=== PATIENT | male | born 1965 | race American Indian/Alaskan Native ===

== ENCOUNTER 2020-12-09 13:45 | Inpatient (IN) ==
[2020-12-09 14:33] LABS: Basophils # (Auto) 0.04 K/mcL (0.00-0.20); Basophils % (Auto) 0.4 % (0.0-2.0); Eosinophils # (Auto) 0.19 K/mcL (0.00-0.70); Eosinophils % (Auto) 1.7 % (0.0-7.0); Hemoglobin 10.3 g/dL (13.5-16.5); Lymphocytes # (Auto) 0.89 K/mcL (1.50-4.80); Lymphocytes % (Auto) 8.1 % (15.0-49.0); Mean Cell Volume 92.2 fL (80.0-100.0); Mean Corpuscular HGB Conc 32.2 g/dL (31.0-36.0); Monocytes # (Auto) 1.15 K/mcL (0.10-0.90); Monocytes % (Auto) 10.4 % (1.0-12.0); Neutrophils % (Auto) 79.4 % (38.0-78.0); Platelet Count 454 K/mcL (140-440); RBC 3.47 M/mcL (4.50-5.90); Red Cell Distribution Width 14.5 % (11.5-14.5)
[2020-12-09 14:42] LABS: POC INR 1.3 (0.8-1.2); POC Pro Time 14.9 sec (11.9-14.5)
[2020-12-09 14:53] LABS: ALT/SGPT 10 U/L (<40); AST/SGOT 17 U/L (<40); Albumin 3.3 gm/dL (3.2-5.2); Albumin/Globulin Ratio 0.9 (1.0-2.3); Alkaline Phosphatase 120 U/L (39-117); Bilirubin,Total 0.4 mg/dL (0.1-1.0); Blood Urea Nitrogen 41 mg/dL (6-20); Calcium 10.5 mg/dL (8.6-10.4); Carbon Dioxide 27 mmol/L (22-30); Chloride 88 mmol/L (96-108); Globulin 3.7 gm/dL (2.2-3.7); Glomerular Filtration Rate 15; Glucose 101 mg/dL (70-105)
--- NOTE | 2020-12-09 15:10 | Cat Scan Report ---
History: Diabetic with foot wound, dark necrotic fourth and fifth toes TECHNIQUE: The patient was imaged without contrast in axial plane from the mid tibia and fibula to the bottom of the foot at 2.5 mm intervals. Sagittal and coronal reformats were created. Radiation exposure was limited using dose reduction technology. FINDINGS: Severe atherosclerotic disease is present with densely calcified plaques in the posterior tibial, anterior tibial and peroneal arteries. The calcifications extend to the distal foot. These may be creating hemodynamically significant stenoses. There is a collection of multiple small bubbles of air in the deep subcutaneous tissues along the medial side of the ankle. Many of them lie lateral to the posterior tibial and flexor digitorum longus tendon. There is a band of thickened and inflamed tissues around the bubbles of air but no abscess collection is present. This extends superior to the ankle a distance of approximately 7 cm. The adjacent tibia is normal without evidence of osteomyelitis. There is a contour deformity due to an old healed fracture in the distal shaft of the tibia. There is mature callus. Is also a small osteochondral defect along the medial weightbearing portion of the dome of the talus. This is probably from an old injury. The bone fragment measures 2 x 4 mm. Ankle joint space is normal in width and there is no significant spur formation. No joint effusion or septic joint is seen. There is moderate osteoarthritis between the medial cuneiform and the adjacent base of the first metatarsal. The metatarsals and phalanges are normal without evidence of acute fracture and there is also no evidence of osteomyelitis in the foot. Another old fracture is present at the base of the fifth metatarsal. IMPRESSION: Gas in the subcutaneous tissues along the medial side of the ankle and medial to the distal tibia. This is most likely an infection. No evidence of osteomyelitis Dr. Reynoso was called with the results Interpreted and Authenticated by: Shelton Shah 12/09/20
--- NOTE | 2020-12-09 15:13 | XRay Report ---
HISTORY: Fever, chills, diabetes and right foot wound FINDINGS: Heart is moderately enlarged and has increased in size since 08/18/20. There is a generalized haziness in lung parenchyma bilaterally with the greatest involvement around the right lower hilum. This could be due to congestive heart failure or inflammation. There is no lobar consolidation or pleural effusion. Alveolar opacities were present in both lungs and 08/18/20 but they have since become worse. IMPRESSION: Worsening cardiomegaly with congestive heart failure, pneumonia or combination of the two. Interpreted and Authenticated by: Shelton Shah 12/09/20
--- NOTE | 2020-12-09 15:15 | Emergency Department Note ---
Extremity Problem HPI General Chief complaint: Extremity Problem,Nontraumatic Stated complaint: wound on right foot Time Seen by Provider: 12/09/20 13:53 Source: patient Mode of arrival: ambulatory Limitations: no limitations History of Present Illness HPI Narrative: Narrative: I spoke with Dr. Jay, who is asking for patient to be admitted and shows me pictures with severe plaque and scabs/ulcers changes to the medial ankle, medial distal leg, and medial foot as well as severely darkened inferior one half of the left fourth and fifth toes. Patient has a history of stents to his legs by Dr. Landry several years ago. He has a history of diabetic foot ulcer on the right that took 6 months to heal[address] Per Dr[address] Jay he is needing current labs imaging, antibiotics and admission for debridement and treatment. Patient's dialysis is scheduled for tomorrow, gets it MWF. Has had chills today. No sweatiness. He has lost weight from 280 pounds down to about 250 pounds (132 kg down to 115 this has been purposeful. Related Data Home Medications Medication Instructions Recorded Confirmed aspirin 81 mg tablet,delayed 81 mg PO QDAY 09/06/18 04/29/20 release dextran 70-hypromellose 1 each OP QIDP PRN 11/02/19 04/29/20 silver sulfadiazine 1 appful TOPICAL PRN PRN 11/02/19 04/29/20 insulin detemir U-100 40 unit SQ BID 11/06/19 04/29/20 acetaminophen 325 mg tablet 650 mg PO PRN PRN 06/18/20 amino ac-protein hydr-whey pro 10 each PO 3XW ml 06/18/20 gram-100 kcal/30 mL oral liquid arginine 7 gram-glutamine 7 each PO QDAY each 06/18/20 gram-calcium HMB 1.5 gram oral powder pack calcitriol 0.25 mcg capsule 0.25 mcg PO 3XW 06/18/20 clonidine HCl 0.1 mg tablet 0.1 mg PO ONCE PRN tab 06/18/20 etelcalcetide 5 mg/mL intravenous 10 mg IV 3XW 06/18/20 solution heparin (porcine) 1,000 unit/mL 1,500 unit IV ml 06/18/20 injection solution heparin (porcine) 1,000 unit/mL 2,000 unit IV ml 06/18/20 injection solution heparin (porcine) 1,000 unit/mL 4,000 unit IV ml 06/18/20 injection solution hydroxyzine HCl 10 mg tablet 10 mg PO ONCE PRN tab 06/18/20 insulin aspart U-100 100 unit/mL 12 unit SUB-Q .BID ac ml 06/18/20 subcutaneous solution loperamide 2 mg capsule 4 mg PO ONCE PRN cap 06/18/20 ondansetron HCl 2 mg/mL 4 mg IM ONCE PRN ml 06/18/20 intravenous solution sodium ferric gluconat-sucrose 62.5 mg IV QWEEK ml 06/18/20 62.5 mg/5 mL intravenous Previous Rx's Medication Instructions Recorded clopidogrel 75 mg tablet 75 mg PO QDAY #30 tab 12/11/18 B complex-vitamin C-folic acid 100 1 tab PO QDAY #30 tab 03/28/19 mg-folic acid 1 mg tablet glipizide 5 mg tablet, extended 5 mg PO QDAY #30 tab 12/21/19 release 24 hr arginine 7 gram-glutamine 7 See Rx Instructions PO .COMPLEX 04/16/20 gram-calcium HMB 1.5 gram oral #30 each powder pack clonidine 0.2 mg/24 hr weekly 1 patch TRANSDERMA QWEEK #4 each 06/04/20 transdermal patch calcium acetate(phosphat bind) 667 2,001 mg PO .TID pc #270 cap 06/18/20 mg capsule lisinopril 40 mg tablet 40 mg PO BID #60 tab 06/18/20 doxazosin 2 mg tablet 4 mg PO QHS #60 tab 07/10/20 sevelamer HCl 800 mg tablet 2,400 mg PO .tid ac #270 tab 07/10/20 rosuvastatin 5 mg tablet 5 mg PO QPM #30 tab 07/15/20 amlodipine 10 mg tablet 10 mg PO QDAY #30 tab 08/25/20 gabapentin 600 mg tablet 600 mg PO .COMPLEX #30 tab 11/07/20 amitriptyline 25 mg tablet 25 mg PO QHS #30 tab 11/11/20 Allergies Allergy/AdvReac Type Severity Reaction Status Date / Time cephalexin Allergy Mild rash Verified 12/09/20 13:50 Review of Systems ROS ROS Narrative: Narrative: Has some cough that he relates to his denture cream oozing out and draining. Has some constipation off and on Does not produce any urine Feels some generalized weakness lethargy and low energy. 12 Systems Reviewed - negative except as mentioned above. [facility] Narrative Patient History Narrative: Narrative: Medical/Surgical/Family History All Active Problems (Updated 12/09/20 @ 16:02 by Jah Reynoso DO) Diabetic foot ulcer (Acute) Chronic kidney disease, stage V requiring chronic dialysis (Acute) Necrotizing soft tissue infection (Acute) Necrotic toes (Acute) Depressed (Acute) SOB (shortness of breath) (Acute) Accelerated essential hypertension (Acute) Neuropathy associated with endocrine disorder (Acute) Diabetes mellitus with ESRD (end-stage renal disease) (Acute) Proliferative diabetic retinopathy (Chronic) Degenerative joint disease (Chronic) Periodontal disease (Chronic) Hypercholesterolemia (Chronic) Arthritis (Chronic) Anemia (Chronic) Non healing left heel wound (Chronic) Hyponatremia (Chronic) Sepsis (Acute) Hypertension (Acute) Peripheral arterial disease (Chronic) nursing home (current) use of anticoagulants (Chronic) Secondary diabetes mellitus with hypertension and end stage renal disease on dialysis (Chronic) Type 2 diabetes, uncontrolled, with neuropathy (Chronic) ESRD (end stage renal disease) on dialysis (Chronic) Hypertension (Chronic) Hyperlipidemia (Chronic) Obesity (BMI 30.0-34.9) (Chronic) Cellulitis of heel, left (Chronic) Diabetic foot ulcer (Chronic) Chronic renal failure, stage 5 (Chronic) Hyponatremia (Acute) Recurrent cellulitis of lower leg (Chronic) Vitamin D deficiency (Chronic) Obesity, morbid (more than 100 lbs over ideal weight or BMI > 40) (Chronic) Hyperparathyroidism, secondary (Chronic) Medical History (Updated 12/09/20 @ 16:02 by Jah Reynoso DO) Abscess of skin or subcutaneous tissue (Resolved) Anemia (Chronic) Arthritis (Chronic) Cellulitis of heel, left (Chronic) Ugent need of incision and drainage left heel Chronic renal failure, stage 5 (Chronic) Degenerative joint disease (Chronic) Diabetic foot ulcer (Chronic) treated with surgery, abx, hbo and skin graft ESRD (end stage renal disease) on dialysis (Chronic) History of folliculitis (Chronic) associated inguinal infection requiring incision and drainage Hypercholesterolemia (Chronic) Hyperglycemia (Resolved) Hyperkalemia (Resolved) Hyperlipidemia (Chronic) Hyperparathyroidism, secondary (Chronic) Hypertension (Chronic) 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 Landry) Non healing left heel wound (Chronic) Obesity (BMI 30.0-34.9) (Chronic) Obesity, morbid (more than 100 lbs over ideal weight or BMI > 40) (Chronic) Periodontal disease (Chronic) Full dental extraction Peripheral arterial disease (Chronic) Status post stenting, Dr. Landry. Proliferative diabetic retinopathy (Chronic) Recurrent cellulitis of lower leg (Chronic) Secondary diabetes mellitus with hypertension and end stage renal disease on dialysis (Chronic) Type 2 diabetes, uncontrolled, with neuropathy (Chronic) Well controlled when hospitalized. Left to his own devices, to much CHO intake and poor control Vitamin D deficiency (Chronic) Surgical History (Updated 12/09/20 @ 15:10 by Jah Reynoso DO) History of cataract removal with insertion of prosthetic lens (Chronic) History of surgery (Chronic) Left radiocephalic AV fistula, with subsequent thrombosis. History of surgery (Chronic) Left brachiocephalic AV fistula History of tonsillectomy and adenoidectomy (Chronic) as a child S/P peripheral artery angioplasty with stent placement (Acute) Dr. Landry Family History father Malignant neoplasm of liver father Diabetes mellitus with coincident hypertension father Obesity Unknown Social History Smoking Status: Never smoker Alcohol Intake Frequency: does not drink Substance Use: does not use Exam Narrative Narrative: Narrative: General Limitations: no limitations General appearance: Present alert, in no apparent distress and nontoxic Head Head: Present atraumatic and normocephalic Eye Eye: Present normal appearance, PERRL and EOMI ENT ENT: Present mucous membranes moist; Absent nasal tones Neck Neck: Present trachea midline; Absent lymphadenopathy and thyromegaly Chest Chest: Present symmetric chest wall rise Respiratory Respiratory: Present normal lung sounds bilaterally; Absent respiratory distress, rales/crackles, wheezes, stridor, accessory muscle use and prolonged expiratory phase Cardiovascular Cardiovascular: Present regular rate, normal rhythm and systolic murmur (fairly loud newman systolic throughout precordium, crescendo.); Absent diastolic murmur Adbominal Abdominal: Present soft; Absent distention, tenderness, guarding, rebound, rigidity, organomegaly and mass Extremities Extremities: Present other (Very dark irregular as shard that extends quite frequently to the very distal medial lower extremity and medial ankle and proximal medial foot. The fourth and fifth toes are one half, the lower one half, dark and necrotic in appearance with the same color.); Absent pedal edema, pretibial edema, calf tenderness and cyanosis Expanded Lower Extremity Foot/toe: Present other (Dorsalis pedal pulse on the right 0/4, on the left 2/4. Unable to palpate for a posterior tibial on the right due to the severe eschar overlying this area on the right.) Back Back: Absent CVA tenderness (R), CVA tenderness (L) and spinous process tenderness Neurological Neurological: Present alert and oriented X3 Psychiatric Psychiatric: Present normal affect, polite and pleasant; Absent depressed, agitated, anxious and poor eye contact Skin Skin: Present warm (WNL) and dry; Absent cyanosis and pallor Course Vital Signs Vital signs: Vital Signs Temperature 99.3 F H 12/09/20 13:47 Pulse Rate 100 H 12/09/20 13:47 Respiratory Rate 18 12/09/20 13:47 Blood Pressure 163/93 12/09/20 13:47 Pulse Oximetry (%) 99 12/09/20 13:47 Temperature 99.3 F H 12/09/20 13:47 Pulse Rate 102 H 12/09/20 14:39 Respiratory Rate 18 12/09/20 13:47 Blood Pressure 152/89 12/09/20 14:39 Pulse Oximetry (%) 97 12/09/20 14:39 [facility] Narrative Medical decision making narrative: Narrative: Patient is not toxic or septic in appearance or per vitals. He is a little bit tachycardic. He has some history of some chills and some low-grade fevers. We will do lab work-up and CT scan per her Dr. Jay's recommendations. EKG demonstrates sinus tachycardia with probable left atrial enlargement, right bundle branch block and left anterior fascicular block. No ST segment variations or T wave concerns, T waves inferiorly oriented in 3 and aVF. Labs as below. No white count. Does have mildly worsened anemia presumably of chronic kidney disease. INR mildly elevated at 1.3. Sodium mildly low at 131 but he has had some hyponatremia Chronically in the past. BUN and creatinine are 41 and 4.1 which is actually quite well for him. Mildly elevated calcium at 10.5 Serum proteins are actually good. Lactic acid 1.4. 3:05 PM - telephone call from radiologist, Dr. Shah, who reports that it there are some small bubble gas in the deep subcutaneous tissues in the distal tibial region. It does not appear to be a septic joint or any osteomyelitis of the tibia, ankle, toes. There are no gas bubbles in the foot or toes. I spoke about above with Dr. Jay who indicates no new specific interven tion. He will obtain deep tissue culture when patient goes to surgical debridement. Vancomycin and Zosyn already ordered. 3:25 PM approximately - spoke with Dr. Joe, impregnator operator who will follow this patient from nephrology standpoint. 3:40 PM - spoke with hospitalist, Dr. José Yost, who will come and see this patient and admit him to the hospitalist service. Pharmacist will increase the dose to 1500 mg 1 time on the vancomycin. She agrees with initial Zosyn dose of Zosyn 2.25 and that it can be given every 8 hours. Lab Data Result diagrams: 12/09/20 14:08 12/09/20 14:08 Labs: Lab Results 12/09/20 12/09/20 12/09/20 Range/Units 14:08 14:08 14:30 WBC 11.0 (4.5-11.0) K/mcL RBC 3.47 L (4.50-5.90) M/mcL Hgb 10.3 L (13.5-16.5) g/dL Hct 32.0 L (41.0-55.0) % MCV 92.2 (80.0-100.0) fL MCH 29.7 (26.0-34.0) pg MCHC 32.2 (31.0-36.0) g/dL RDW 14.5 (11.5-14.5) % Plt Count 454 H (140-440) K/mcL MPV 9.0 (7.4-10.4) fL Neut % (Auto) 79.4 H (38.0-78.0) % Lymph % (Auto) 8.1 L (15.0-49.0) % Gila % (Auto) 10.4 (1.0-12.0) % Eos % (Auto) 1.7 (0.0-7.0) % Baso % (Auto) 0.4 (0.0-2.0) % Lymph # (Auto) 0.89 L (1.50-4.80) K/mcL Gila # (Auto) 1.15 H (0.10-0.90) K/mcL Eos # (Auto) 0.19 (0.00-0.70) K/mcL Baso # (Auto) 0.04 (0.00-0.20) K/mcL Absolute Neutrophils 8.77 H (1.80-8.00) K/mcL POC PT 14.9 H (11.9-14.5) sec POC INR 1.3 H (0.8-1.2) APTT (20.0-37.0) sec Sodium 131 L (133-145) mmol/L Potassium 5.0 (3.3-5.1) mmol/L Chloride 88 L (96-108) mmol/L Carbon Dioxide 27 (22-30) mmol/L Anion Gap 16.0 (8.0-16.0) BUN 41 H (6-20) mg/dL Creatinine 4.1 H (0.7-1.2) mg/dL GFR Calculation 15 Glucose 101 (70-105) mg/dL Calcium 10.5 H (8.6-10.4) mg/dL Total Bilirubin 0.4 (0.1-1.0) mg/dL AST 17 (<40) U/L ALT 10 (<40) U/L Alkaline Phosphatase 120 H (39-117) U/L Total Protein 7.0 (5.9-8.4) gm/dL Albumin 3.3 (3.2-5.2) gm/dL Globulin 3.7 (2.2-3.7) gm/dL Albumin/Globulin Ratio 0.9 L (1.0-2.3) 12/09/20 Range/Units 14:30 WBC (4.5-11.0) K/mcL RBC (4.50-5.90) M/mcL Hgb (13.5-16.5) g/dL Hct (41.0-55.0) % MCV (80.0-100.0) fL MCH (26.0-34.0) pg MCHC (31.0-36.0) g/dL RDW (11.5-14.5) % Plt Count (140-440) K/mcL MPV (7.4-10.4) fL Neut % (Auto) (38.0-78.0) % Lymph % (Auto) (15.0-49.0) % Gila % (Auto) (1.0-12.0) % Eos % (Auto) (0.0-7.0) % Baso % (Auto) (0.0-2.0) % Lymph # (Auto) (1.50-4.80) K/mcL Gila # (Auto) (0.10-0.90) K/mcL Eos # (Auto) (0.00-0.70) K/mcL Baso # (Auto) (0.00-0.20) K/mcL Absolute Neutrophils (1.80-8.00) K/mcL POC PT (11.9-14.5) sec POC INR (0.8-1.2) APTT 32.0 (20.0-37.0) sec Sodium (133-145) mmol/L Potassium (3.3-5.1) mmol/L Chloride (96-108) mmol/L Carbon Dioxide (22-30) mmol/L Anion Gap (8.0-16.0) BUN (6-20) mg/dL Creatinine (0.7-1.2) mg/dL GFR Calculation Glucose (70-105) mg/dL Calcium (8.6-10.4) mg/dL Total Bilirubin (0.1-1.0) mg/dL AST (<40) U/L ALT (<40) U/L Alkaline Phosphatase (39-117) U/L Total Protein (5.9-8.4) gm/dL Albumin (3.2-5.2) gm/dL Globulin (2.2-3.7) gm/dL Albumin/Globulin Ratio (1.0-2.3) Discharge Plan Patient/Caregiver Discharge Instructions Pt seen by FARM ADVISOR/PA only: No Clinical Impression: Diabetic foot ulcer, Chronic kidney disease, stage V requiring chronic dialysis, Necrotizing soft tissue infection, Necrotic toes Patient Disposition: Xfer As Inpt ([facility]) Follow up with: Violet Silva MD [Primary Care Provider] - Prescriptions: No Action aspirin 81 mg tablet,delayed release (DR/EC) 81 mg PO QDAY RF: 0 clopidogrel [Plavix] 75 mg tablet 75 mg PO QDAY Qty: 30 RF: 6 Dialyvite 100-1 mg tablet 1 tab PO QDAY Qty: 30 RF: 6 glipizide 5 mg tablet extended release 24hr 5 mg PO QDAY Qty: 30 RF: 11 arginine 7 gram-glutamine 7 gram-calcium HMB 1.5 gram oral powder pack 7-7-1.5 gram powder in packet See Rx Instructions PO .COMPLEX Qty: 30 RF: 3 clonidine 0.2 mg/24 hr patch weekly 1 patch TRANSDERMA QWEEK Qty: 4 RF: 11 acetaminophen 325 mg tablet 650 mg PO PRN PRN (Reason: pain ) RF: 0 calcitriol 0.25 mcg capsule 0.25 mcg PO 3XW RF: 0 clonidine HCl 0.1 mg tablet 0.1 mg PO ONCE PRNRF: 0 sodium ferric gluconat-sucrose [Ferrlecit] 62.5 mg/5 mL solution 62.5 mg IV QWEEK RF: 0 ondansetron HCl 2 mg/mL solution 4 mg IM ONCE PRNRF: 0 ProSource 10-100 gram-kcal/30 mL liquid PO 3XW RF: 0 calcium acetate(phosphat bind) 667 mg capsule 2,001 mg PO .TID pc Qty: 270 RF: 12 Parsabiv 5 mg/mL solution 10 mg IV 3XW RF: 0 insulin aspart U-100 100 unit/mL solution 12 unit SUB-Q .BID ac RF: 0 heparin (porcine) 1,000 unit/mL solution 2,000 unit IV RF: 0 heparin (porcine) 1,000 unit/mL solution 4,000 unit IV RF: 0 heparin (porcine) 1,000 unit/mL solution 1,500 unit IV RF: 0 hydroxyzine HCl 10 mg tablet 10 mg PO ONCE PRNRF: 0 loperamide [Imodium A-D] 2 mg capsule 4 mg PO ONCE PRNRF: 0 Buddy 7-7-1.5 gram powder in packet PO QDAY RF: 0 lisinopril 40 mg tablet 40 mg PO BID Qty: 60 RF: 11 doxazosin 2 mg tablet 4 mg PO QHS Qty: 60 RF: 11 sevelamer HCl 800 mg tablet 2,400 mg PO .tid ac Qty: 270 RF: 12 rosuvastatin 5 mg tablet 5 mg PO QPM Qty: 30 RF: 11 amlodipine 10 mg tablet 10 mg PO QDAY Qty: 30 RF: 11 gabapentin 600 mg tablet 600 mg PO .COMPLEX Qty: 30 RF: 11 amitriptyline 25 mg tablet 25 mg PO QHS Qty: 30 RF: 11 silver sulfadiazine 1 cream 1 appful topical PRN PRN (Reason: Dry Skin) RF: 0 dextran 70-hypromellose 1 EACH dropperette 1 each OP QIDP PRN (Reason: Dry Eyes) RF: 0 insulin detemir U-100 100 UNIT/ML insulin pen 40 unit SQ BID RF: 0
[2020-12-09] MEDS ORDERED: PIPERACILLIN SODIUM/TAZOBACTAM 2.25 GM in DEXTROSE 5% IN WATER 50 ML IV ONE (15:17)
[2020-12-09] MEDS ORDERED: VANCOMYCIN 1,000 MG in 0.9 % SODIUM CHLORIDE 250 ML IV ONE (15:17)
--- NOTE | 2020-12-09 15:52 | Internal Med History&Physical ---
HPI History of Present Illness Patient information: Note initiated : 12/09/20 at 3:42 pm Service Date, if different from initiated Date: [] Patient: Robert Montes a 55 y/o M admitted on for wound on right foot. Chief Complaint: [] History of present illness: Mr. Montes is a 55 year old M Presents to the ED sent in by Dr. Jay at the wound care clinic for a right foot nonhealing wound that appears to be infected at this point and likely n eeds surgical debridement per Dr. Dominguez. Patient reports increased redness and also drainage which she describes as brown. Denies fevers but positive for chills. Review of Systems: Positives as above. Denies headache/fever/nausea/vomiting/chest or abdominal pain/cough/dyspnea/diarrhea. Many 10 point review of system reviewed negative. PFSH PFSH All Active Problems (Updated 12/09/20 @ 16:02 by Jah Reynoso DO) Diabetic foot ulcer (Acute) Chronic kidney disease, stage V requiring chronic dialysis (Acute) Necrotizing soft tissue infection (Acute) Necrotic toes (Acute) Depressed (Acute) SOB (shortness of breath) (Acute) Accelerated essential hypertension (Acute) Neuropathy associated with endocrine disorder (Acute) Diabetes mellitus with ESRD (end-stage renal disease) (Acute) Proliferative diabetic retinopathy (Chronic) Degenerative joint disease (Chronic) Periodontal disease (Chronic) Hypercholesterolemia (Chronic) Arthritis (Chronic) Anemia (Chronic) Non healing left heel wound (Chronic) Hyponatremia (Chronic) Sepsis (Acute) Hypertension (Acute) Peripheral arterial disease (Chronic) [facility] (current) use of anticoagulants (Chronic) Secondary diabetes mellitus with hypertension and end stage renal disease on dialysis (Chronic) Type 2 diabetes, uncontrolled, with neuropathy (Chronic) ESRD (end stage renal disease) on dialysis (Chronic) Hypertension (Chronic) Hyperlipidemia (Chronic) Obesity (BMI 30.0-34.9) (Chronic) Cellulitis of heel, left (Chronic) Diabetic foot ulcer (Chronic) Chronic renal failure, stage 5 (Chronic) Hyponatremia (Acute) Recurrent cellulitis of lower leg (Chronic) Vitamin D deficiency (Chronic) Obesity, morbid (more than 100 lbs over ideal weight or BMI > 40) (Chronic) Hyperparathyroidism, secondary (Chronic) Medical History (Updated 12/09/20 @ 16:02 by Jah Reynoso DO) Abscess of skin or subcutaneous tissue (Resolved) Anemia (Chronic) Arthritis (Chronic) Cellulitis of heel, left (Chronic) Ugent need of incision and drainage left heel Chronic renal failure, stage 5 (Chronic) Degenerative joint disease (Chronic) Diabetic foot ulcer (Chronic) treated with surgery, abx, hbo and skin graft ESRD (end stage renal disease) on dialysis (Chronic) History of folliculitis (Chronic) associated inguinal infection requiring incision and drainage Hypercholesterolemia (Chronic) Hyperglycemia (Resolved) Hyperkalemia (Resolved) Hyperlipidemia (Chronic) Hyperparathyroidism, secondary (Chronic) Hypertension (Chronic) Controlled with captopril and clonidine TTS [employer] (current) use of anticoagulants (Chronic) Clopidogrel (status post stenting lower extremities; Dr. Landry) Non healing left heel wound (Chronic) Obesity (BMI 30.0-34.9) (Chronic) Obesity, morbid (more than 100 lbs over ideal weight or BMI > 40) (Chronic) Periodontal disease (Chronic) Full dental extraction Peripheral arterial disease (Chronic) Status post stenting, Dr. Landry. Proliferative diabetic retinopathy (Chronic) Recurrent cellulitis of lower leg (Chronic) Secondary diabetes mellitus with hypertension and end stage renal disease on dialysis (Chronic) Type 2 diabetes, uncontrolled, with neuropathy (Chronic) Well controlled when hospitalized. Left to his own devices, to much CHO intake and poor control Vitamin D deficiency (Chronic) Surgical History (Updated 12/09/20 @ 15:10 by Jah Reynoso DO) History of cataract removal with insertion of prosthetic lens (Chronic) History of surgery (Chronic) Left radiocephalic AV fistula, with subsequent thrombosis. History of surgery (Chronic) Left brachiocephalic AV fistula History of tonsillectomy and adenoidectomy (Chronic) as a child S/P peripheral artery angioplasty with stent placement (Acute) Dr. Landry Family History father Malignant neoplasm of liver Diabetes mellitus with coincident hypertension Unknown Obesity Social History (Updated 04/30/20 @ 20:49 by Luis M Curry MD) marital status: single occupational status: disabled smoking status: Never smoker alcohol intake frequency: does not drink substance use type: does not use MEDS/ALLERGIES Home Medications and Allergies Home Medications Medication Instructions Recorded Confirmed Type aspirin 81 mg tablet,delayed 81 mg PO QDAY 09/06/18 04/29/20 History release clopidogrel 75 mg tablet 75 mg PO QDAY #30 tab 12/11/18 04/29/20 Rx B complex-vitamin C-folic acid 100 1 tab PO QDAY #30 tab 03/28/19 04/29/20 Rx mg-folic acid 1 mg tablet dextran 70-hypromellose 1 each OP QIDP PRN 11/02/19 04/29/20 History silver sulfadiazine 1 appful TOPICAL PRN PRN 11/02/19 04/29/20 History insulin detemir U-100 40 unit SQ BID 11/06/19 04/29/20 History glipizide 5 mg tablet, extended 5 mg PO QDAY #30 tab 12/21/19 04/29/20 Rx release 24 hr arginine 7 gram-glutamine 7 See Rx Instructions PO .COMPLEX 04/16/20 04/29/20 Rx gram-calcium HMB 1.5 gram oral #30 each powder pack clonidine 0.2 mg/24 hr weekly 1 patch TRANSDERMA QWEEK #4 each 06/04/20 Rx transdermal patch acetaminophen 325 mg tablet 650 mg PO PRN PRN 06/18/20 History amino ac-protein hydr-whey pro 10 each PO 3XW ml 06/18/20 History gram-100 kcal/30 mL oral liquid arginine 7 gram-glutamine 7 each PO QDAY each 06/18/20 History gram-calcium HMB 1.5 gram oral powder pack calcitriol 0.25 mcg capsule 0.25 mcg PO 3XW 06/18/20 History calcium acetate(phosphat bind) 667 2,001 mg PO .TID pc #270 cap 06/18/20 Rx mg capsule clonidine HCl 0.1 mg tablet 0.1 mg PO ONCE PRN tab 06/18/20 History etelcalcetide 5 mg/mL intravenous 10 mg IV 3XW 06/18/20 History solution heparin (porcine) 1,000 unit/mL 1,500 unit IV ml 06/18/20 History injection solution heparin (porcine) 1,000 unit/mL 2,000 unit IV ml 06/18/20 History injection solution heparin (porcine) 1,000 unit/mL 4,000 unit IV ml 06/18/20 History injection solution hydroxyzine HCl 10 mg tablet 10 mg PO ONCE PRN tab 06/18/20 History insulin aspart U-100 100 unit/mL 12 unit SUB-Q .BID ac ml 06/18/20 History subcutaneous solution lisinopril 40 mg tablet 40 mg PO BID #60 tab 06/18/20 Rx loperamide 2 mg capsule 4 mg PO ONCE PRN cap 06/18/20 History ondansetron HCl 2 mg/mL 4 mg IM ONCE PRN ml 06/18/20 History intravenous solution sodium ferric gluconat-sucrose 62.5 mg IV QWEEK ml 06/18/20 History 62.5 mg/5 mL intravenous doxazosin 2 mg tablet 4 mg PO QHS #60 tab 07/10/20 Rx sevelamer HCl 800 mg tablet 2,400 mg PO .tid ac #270 tab 07/10/20 Rx rosuvastatin 5 mg tablet 5 mg PO QPM #30 tab 07/15/20 Rx amlodipine 10 mg tablet 10 mg PO QDAY #30 tab 08/25/20 Rx gabapentin 600 mg tablet 600 mg PO .COMPLEX #30 tab 11/07/20 Rx amitriptyline 25 mg tablet 25 mg PO QHS #30 tab 11/11/20 Rx Allergies Allergy/AdvReac Type Severity Reaction Status Date / Time cephalexin Allergy Mild rash Verified 12/09/20 13:50 EXAM Constitutional Vitals: Temp Pulse Resp BP Pulse Ox 99.3 F H 102 H 18 152/89 97 12/09/20 13:47 12/09/20 14:39 12/09/20 13:47 12/09/20 14:39 12/09/20 14:39 Exam: General: Alert, Awake, No acute Distress Eyes/N/T: EOMI, PERRL, MM Head/Neck: neck supple, normocephalic atraumatic CV: RRR, No murmurs, normal s1/s2 Pulm: Clear b/l, no wheezing/rhonchi/rales Abd: soft, nontender, +BS x4 Ext: no clubbing/cyanosis/edema to RLE. Left with large eschar left foot dorsal medial aspect with the area of fluctuance. Neuro: Alert, no focal deficits, moves all extremities, CN 2-12 grossly intact, symmetrical strength b/l upper/lower, decreased sensations b/l LE chronic Skin: warm/dry DATA Data Completed and Pending Labs: Labs from last 24 hours 12/09/20 12/09/20 12/09/20 14:30 14:30 14:08 WBC RBC Hgb Hct MCV MCH MCHC RDW Plt Count MPV Neut % (Auto) Lymph % (Auto) [place] % (Auto) Eos % (Auto) Baso % (Auto) Lymph # (Auto) [place] # (Auto) Eos # (Auto) Baso # (Auto) Absolute Neutrophils POC PT 14.9 H POC INR 1.3 H APTT 32.0 Sodium 131 L Potassium 5.0 Chloride 88 L Carbon Dioxide 27 Anion Gap 16.0 BUN 41 H Creatinine 4.1 H GFR Calculation 15 Glucose 101 Calcium 10.5 H Total Bilirubin 0.4 AST 17 ALT 10 Alkaline Phosphatase 120 H Total Protein 7.0 Albumin 3.3 Globulin 3.7 Albumin/Globulin Ratio 0.9 L 12/09/20 14:08 WBC 11.0 RBC 3.47 L Hgb 10.3 L Hct 32.0 L MCV 92.2 MCH 29.7 MCHC 32.2 RDW 14.5 Plt Count 454 H MPV 9.0 Neut % (Auto) 79.4 H Lymph % (Auto) 8.1 L [place] % (Auto) 10.4 Eos % (Auto) 1.7 Baso % (Auto) 0.4 Lymph # (Auto) 0.89 L [place] # (Auto) 1.15 H Eos # (Auto) 0.19 Baso # (Auto) 0.04 Absolute Neutrophils 8.77 H POC PT POC INR APTT Sodium Potassium Chloride Carbon Dioxide Anion Gap BUN Creatinine GFR Calculation Glucose Calcium Total Bilirubin AST ALT Alkaline Phosphatase Total Protein Albumin Globulin Albumin/Globulin Ratio A/P Narrative A/P Narrative: A: *Left foot non-healing diabetic wound infection w/subcutaneous necrosis: *DM w/neuropathy: *ESRD: Follows with Dr. Joe *PVD: on ASA/Plavix/statin *Anemia, chronic *HTN/HLD: * P: -Broad antibiotics with Vanc/Zosyn, Clinda(for first 48rs) - deescalate per cx's and ID orders -pending BC/WC/mrsa pcr -Dr. Jay for I&D -Dr. White consulted -HD per nephrology -Continue home Norvasc/clonidine/lisinopril -Continue ASA/Plavix/statin -Basal and SSI -PT/OT -ppx: Heparin full Code Time Spent With Patient Time: Total time spent is greater than 50% in coordination of care (as document ed) at patient's floor/unit and/or counseling patient:
[2020-12-09] MEDS ORDERED: VANCOMYCIN 1,500 MG in 0.9 % SODIUM CHLORIDE 500 ML IV ONE (16:00)
[2020-12-09] MEDS ORDERED: POTASSIUM CHLORIDE 20 MEQ TABLET PO PRN ×2 (16:42)
[2020-12-09] MEDS ORDERED: MAGNESIUM SULFATE 2 GM/50 ML BAG IV PRN (16:42)
[2020-12-09] MEDS ORDERED: DEXTROSE 31 GM ORAL.SUSP PO PRN (16:42)
[2020-12-09] MEDS ORDERED: POTASSIUM CHLORIDE 40 MEQ in DEXTROSE 5% IN WATER 500 ML IV PRN (16:42)
[2020-12-09] MEDS ORDERED: IPRATROPIUM/ALBUTEROL 3 ML AMPUL.NEB NEB PRN (16:42)
[2020-12-09] MEDS ORDERED: ONDANSETRON 4 MG/2 ML VIAL IV PRN (16:42)
[2020-12-09] MEDS ORDERED: PIPERACILLIN SODIUM/TAZOBACTAM 3.375 GM in DEXTROSE 5% IN WATER 50 ML IV SCH (16:42)
[2020-12-09] MEDS ORDERED: POLYETHYLENE GLYCOL 3350 17 GM PACKET PO PRN (16:42)
[2020-12-09] MEDS ORDERED: VANCOMYCIN PER PHARMACY IV SCH (16:42)
[2020-12-09] MEDS ORDERED: SENNOSIDES 1 TABLET PO PRN (16:42)
[2020-12-09] MEDS ORDERED: LACTULOSE 20 GM/30 ML ORAL.SOL PO PRN (16:42)
--- NOTE | 2020-12-09 17:02 | Nephrology Consult Note ---
HPI Data of Consult Primary Care Provider: Violet Silva Consult Narrative Patient Information: Note initiated : 12/09/20 at 4:53 pm Patient: Robert Montes 55 y/o M admitted on 12/09/20 for wound on right foot. Chief Complaint: Right foot wound Robert Montes is a 55-year-old male with end stage renal disease on chronic h emodialysis, hypertension, hyperlipidemia and diabetes mellitus type 2 referred to the emergency room from the wound care clinic for the right foot wound on 12/09/20 and admitted. The wound appears to be infected and likely needs surgical debridement. Chief complaint: Right foot wound Reason for consult: End stage renal disease on chronic hemodialysis cc:: CC: José Yost Constitutional Constitutional: Present weakness; Absent fever(s) EENT Eyes: Absent blurry vision Nose, mouth and throat: Absent sore throat Cardiovascular Cardiovascular: Absent chest pain and palpatations Respiratory Respiratory: Absent dyspnea and wheezing Gastrointestinal Gastrointestinal: Absent abdominal pain, nausea and vomiting Integumentary Integumentary: Present wounds Neurological Neurological: Absent dizziness and focal weakness Psychiatric Psychiatric: Absent confusion and panic attacks Endocrine Endocrine: Absent cold intolerance and heat intolerance Hematologic/Lymphatic Hematologic/Lymphatic: Absent easy bleeding and easy bruising Allergic/Immunologic Allergic/Immunologic: Absent tongue swelling and uticaria PFSH PFSH All Active Problems (Updated 12/09/20 @ 17:01 by Janet Joe MD) Anemia due to end stage renal disease (Chronic) Diabetic foot ulcer (Acute) Chronic kidney disease, stage V requiring chronic dialysis (Acute) Necrotizing soft tissue infection (Acute) Necrotic toes (Acute) Depressed (Acute) SOB (shortness of breath) (Acute) Accelerated essential hypertension (Acute) Neuropathy associated with endocrine disorder (Acute) Diabetes mellitus with ESRD (end-stage renal disease) (Acute) Proliferative diabetic retinopathy (Chronic) Degenerative joint disease (Chronic) Periodontal disease (Chronic) Hypercholesterolemia (Chronic) Arthritis (Chronic) Anemia (Chronic) Non healing left heel wound (Chronic) Hyponatremia (Chronic) Sepsis (Acute) Hypertension (Acute) Peripheral arterial disease (Chronic) buttermaker (current) use of anticoagulants (Chronic) Secondary diabetes mellitus with hypertension and end stage renal disease on dialysis (Chronic) Type 2 diabetes, uncontrolled, with neuropathy (Chronic) ESRD (end stage renal disease) on dialysis (Chronic) Hypertension (Chronic) Hyperlipidemia (Chronic) Obesity (BMI 30.0-34.9) (Chronic) Cellulitis of heel, left (Chronic) Diabetic foot ulcer (Chronic) Chronic renal failure, stage 5 (Chronic) Hyponatremia (Chronic) Recurrent cellulitis of lower leg (Chronic) Vitamin D deficiency (Chronic) Obesity, morbid (more than 100 lbs over ideal weight or BMI > 40) (Chronic) Hyperparathyroidism, secondary (Chronic) Medical History (Updated 12/09/20 @ 17:01 by Janet Joe MD) Abscess of skin or subcutaneous tissue (Resolved) Anemia (Chronic) Arthritis (Chronic) Cellulitis of heel, left (Chronic) Ugent need of incision and drainage left heel Chronic renal failure, stage 5 (Chronic) Degenerative joint disease (Chronic) Diabetic foot ulcer (Chronic) treated with surgery, abx, hbo and skin graft ESRD (end stage renal disease) on dialysis (Chronic) History of folliculitis (Chronic) associated inguinal infection requiring incision and drainage Hypercholesterolemia (Chronic) Hyperglycemia (Resolved) Hyperkalemia (Resolved) Hyperlipidemia (Chronic) Hyperparathyroidism, secondary (Chronic) Hypertension (Chronic) Controlled with captopril and clonidine TTS [facility] (current) use of anticoagulants (Chronic) Clopidogrel (status post stenting lower extremities; Dr. Landry) Non healing left heel wound (Chronic) Obesity (BMI 30.0-34.9) (Chronic) Obesity, morbid (more than 100 lbs over ideal weight or BMI > 40) (Chronic) Periodontal disease (Chronic) Full dental extraction Peripheral arterial disease (Chronic) Status post stenting, Dr. Landry. Proliferative diabetic retinopathy (Chronic) Recurrent cellulitis of lower leg (Chronic) Secondary diabetes mellitus with hypertension and end stage renal disease on dialysis (Chronic) Type 2 diabetes, uncontrolled, with neuropathy (Chronic) Well controlled when hospitalized. Left to his own devices, to much CHO intake and poor control Vitamin D deficiency (Chronic) Surgical History (Updated 12/09/20 @ 15:10 by Jah Reynoso DO) History of cataract removal with insertion of prosthetic lens (Chronic) History of surgery (Chronic) Left radiocephalic AV fistula, with subsequent thrombosis. History of surgery (Chronic) Left brachiocephalic AV fistula History of tonsillectomy and adenoidectomy (Chronic) as a child S/P peripheral artery angioplasty with stent placement (Acute) Dr. Landry Family History father Malignant neoplasm of liver Diabetes mellitus with coincident hypertension Unknown Obesity Social History (Updated 04/30/20 @ 20:49 by Luis M Curry MD) marital status: single occupational status: disabled smoking status: Never smoker alcohol intake frequency: does not drink substance use type: does not use MEDS/ALLERGIES Home Medications and Allergies Home Medications Medication Instructions Recorded Confirmed Type aspirin 81 mg tablet,delayed 81 mg PO QDAY 09/06/18 12/09/20 History release clopidogrel 75 mg tablet 75 mg PO QDAY #30 tab 12/11/18 12/09/20 Rx B complex-vitamin C-folic acid 100 1 tab PO QDAY #30 tab 03/28/19 12/09/20 Rx mg-folic acid 1 mg tablet dextran 70-hypromellose 1 each OP QIDP PRN 11/02/19 12/09/20 History silver sulfadiazine 1 appful TOPICAL PRN PRN 11/02/19 12/09/20 History insulin detemir U-100 40 unit SQ BID 11/06/19 12/09/20 History glipizide 5 mg tablet, extended 5 mg PO QDAY #30 tab 12/21/19 12/09/20 Rx release 24 hr arginine 7 gram-glutamine 7 See Rx Instructions PO .COMPLEX 04/16/20 12/09/20 Rx gram-calcium HMB 1.5 gram oral #30 each powder pack clonidine 0.2 mg/24 hr weekly 1 patch TRANSDERMA QWEEK #4 each 06/04/20 12/09/20 Rx transdermal patch acetaminophen 325 mg tablet 650 mg PO PRN PRN 06/18/20 12/09/20 History amino ac-protein hydr-whey pro 10 1 each PO 3XW ml 06/18/20 12/09/20 History gram-100 kcal/30 mL oral liquid calcitriol 0.25 mcg capsule 0.25 mcg PO 3XW 06/18/20 12/09/20 History calcium acetate(phosphat bind) 667 2,001 mg PO .TID pc #270 cap 06/18/20 12/09/20 Rx mg capsule clonidine HCl 0.1 mg tablet 0.1 mg PO ONCE PRN tab 06/18/20 12/09/20 History etelcalcetide 5 mg/mL intravenous 10 mg IV 3XW 06/18/20 12/09/20 History solution heparin (porcine) 1,000 unit/mL 1,500 unit IV 3XW ml 06/18/20 12/09/20 History injection solution heparin (porcine) 1,000 unit/mL 2,000 unit IV Q4W ml 06/18/20 12/09/20 History injection solution heparin (porcine) 1,000 unit/mL 4,000 unit IV 3XW ml 06/18/20 12/09/20 History injection solution hydroxyzine HCl 10 mg tablet 10 mg PO ONCE PRN tab 06/18/20 12/09/20 History insulin aspart U-100 100 unit/mL 12 unit SUB-Q .BID ac ml 06/18/20 12/09/20 History subcutaneous solution lisinopril 40 mg tablet 40 mg PO BID #60 tab 06/18/20 12/09/20 Rx loperamide 2 mg capsule 4 mg PO ONCE PRN cap 06/18/20 12/09/20 History ondansetron HCl 2 mg/mL 4 mg IM ONCE PRN ml 06/18/20 12/09/20 History intravenous solution sodium ferric gluconat-sucrose 62.5 mg IV QWEEK ml 06/18/20 12/09/20 History 62.5 mg/5 mL intravenous doxazosin 2 mg tablet 4 mg PO QHS #60 tab 07/10/20 12/09/20 Rx sevelamer HCl 800 mg tablet 2,400 mg PO .tid ac #270 tab 07/10/20 12/09/20 Rx rosuvastatin 5 mg tablet 5 mg PO QPM #30 tab 07/15/20 12/09/20 Rx amlodipine 10 mg tablet 10 mg PO QDAY #30 tab 08/25/20 12/09/20 Rx gabapentin 600 mg tablet 600 mg PO .COMPLEX #30 tab 11/07/20 12/09/20 Rx amitriptyline 25 mg tablet 25 mg PO QHS #30 tab 11/11/20 12/09/20 Rx Allergies Allergy/AdvReac Type Severity Reaction Status Date / Time cephalexin Allergy Mild rash Verified 12/09/20 13:50 Physical Examination Vital Signs Vital signs: Temp Pulse Resp BP Pulse Ox 99.3 F H 103 H 16 133/78 99 12/09/20 13:47 12/09/20 16:20 12/09/20 16:20 12/09/20 16:20 12/09/20 16:20 General Appearance General appearance: well-developed, well-nourished and appears started age EENT EENT: mucous membranes moist Neck Neck: no JVD Respiratory Respiratory: clear Cardiovascular Cardiology: no edema Gastrointestinal Gastrointestinal: no tenderness Integumentary Integumentary: ulcer Neurologic Neurologic: alert and oriented x3 Psychiatric Psychiatric: mood/affect appropriate and cooperative Results Lab Results Result Diagrams: 12/09/20 14:08 12/09/20 14:08 Lab results: Most recent lab results Calcium 10.5 mg/dL (8.6-10.4) H 12/09/20 14:08 A/P Assessment and plan (1) ESRD (end stage renal disease) on dialysis: Assessment and plan: Robert Montes is a 55-year-old male with end stage renal disease on chronic hemodialysis, hypertension, hyperlipidemia and diabetes mellitus type 2 referred to the emergency room from the wound care clinic for the right foot wound on 12/09/20 and admitted. The wound appears to be infected and likely needs surgical debridement. End stage renal disease on chronic hemodialysis. Chronic anemia due to ESRD. Hyponatremia associated with ESRD. Plan: Continue hemodialysis on MWF. Antibiotic dosing for hemodialysis. Status: Chronic (2) Hyponatremia: Status: Chronic (3) Anemia due to end stage renal disease: Status: Chronic Time Spent With Patient Time: Total time spent is greater than 50% in coordination of care (as documented) at patient's floor/unit and/or counseling patient:
[2020-12-09] MEDS: INSULIN LISPRO 1 UNIT/0.01 ML UNIT SQ SCH ×2 (17:30→21:02)
[2020-12-09] MEDS: DEXTROSE 50% 50 ML VIAL IV PRN (17:47)
--- NOTE | 2020-12-09 17:48 | Infectious Disease Consult ---
HPI Data of Consult Primary Care Provider: Violet Silva Consult Narrative Patient Information: Note initiated : 12/09/20 at 5:26 pm Service Date, if different from initiated Date: [] Patient: Robert Montes 55 y/o M admitted on 12/09/20 for wound on right foot. Chief Complaint: [] Robert is a 55-year old diabetic with peripheral neuropathy. He is 6 foot 6 113 kg with chronic kidney disease requiring dialysis Tuesday through a left arm AV fistula. He was seen by Dr. Cooper approximately 2 weeks ago at [facility]. He had development of wound over his right medial ankle. No history of trauma. Patient reports that it started spontaneously. He reports slight cracks developing over his right medial ankle. He has a previous history of peripheral vascular disease with interventions by Dr. Landry. He was started on oral Augmentin once daily but increased to twice daily on dialysis days. He felt as if the right medial ankle wound has become larger over the last 2 weeks. He has not had help with home dressing changes. He lives alone. No pets. No complaints of fevers or chills. He has had previous left calcaneal osteomyelitis a year ago. He had cultures from his left heel December 19, 2019 that grew coag negative staph, methicillin sensitive staph lugdunensis, corynebacterium, and stenotrophomonas. He was seen by infectious disease physician Dr. Gage at that time and required prolonged treatment with vancomycin 10 weeks completed March 12, 2020 followed by 7 more weeks of oral doxycycline. He eventually required skin grafting over the left medial heel and no problems since. He had follow-up with Dr. Oh in wound care today who recommended admission into the hospital by hospitalist. Surgery anticipated. Vanco Zosyn and Clinda have been initiated. Patient denies pain in the right lower leg. A CT scan was completed of the right foot. There are gas bubbles in the area of the right medial ankle no evidence of osteomyelitis. cc:: CC: José Yost Review of Systems Review of systems: General: No fevers or chills. HEENT: No headache or sore thr oat. No neck complaints. Pulmonary: No cough or shortness of breath. Cardiac: He does admit to a murmur. No history of rheumatic fever. GI: No abdominal pain or diarrhea. Extremities: No foot or ankle pain. He does report small amount of drainage from the medial ankle wound. PFSH PFSH All Active Problems (Updated 12/09/20 @ 17:48 by Peña White MD) Anemia due to end stage renal disease (Chronic) Diabetic foot ulcer (Acute) Chronic kidney disease, stage V requiring chronic dialysis (Acute) Necrotizing soft tissue infection (Acute) Necrotic toes (Acute) Depressed (Acute) SOB (shortness of breath) (Acute) Accelerated essential hypertension (Acute) Neuropathy associated with endocrine disorder (Acute) Diabetes mellitus with ESRD (end-stage renal disease) (Acute) Proliferative diabetic retinopathy (Chronic) Degenerative joint disease (Chronic) Periodontal disease (Chronic) Hypercholesterolemia (Chronic) Arthritis (Chronic) Anemia (Chronic) Non healing left heel wound (Chronic) Hyponatremia (Chronic) Sepsis (Acute) Hypertension (Acute) Peripheral arterial disease (Chronic) 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) Secondary diabetes mellitus with hypertension and end stage renal disease on dialysis (Chronic) Type 2 diabetes, uncontrolled, with neuropathy (Chronic) ESRD (end stage renal disease) on dialysis (Chronic) Hypertension (Chronic) Hyperlipidemia (Chronic) Obesity (BMI 30.0-34.9) (Chronic) Cellulitis of heel, left (Chronic) Diabetic foot ulcer (Chronic) Chronic renal failure, stage 5 (Chronic) Hyponatremia (Chronic) Recurrent cellulitis of lower leg (Chronic) Vitamin D deficiency (Chronic) Obesity, morbid (more than 100 lbs over ideal weight or BMI > 40) (Chronic) Hyperparathyroidism, secondary (Chronic) Medical History (Updated 12/09/20 @ 17:48 by Peña White MD) Abscess of skin or subcutaneous tissue (Resolved) Anemia (Chronic) Arthritis (Chronic) Cellulitis of heel, left (Chronic) Ugent need of incision and drainage left heel Chronic renal failure, stage 5 (Chronic) Degenerative joint disease (Chronic) Diabetic foot ulcer (Chronic) treated with surgery, abx, hbo and skin graft ESRD (end stage renal disease) on dialysis (Chronic) History of folliculitis (Chronic) associated inguinal infection requiring incision and drainage Hypercholesterolemia (Chronic) Hyperglycemia (Resolved) Hyperkalemia (Resolved) Hyperlipidemia (Chronic) Hyperparathyroidism, secondary (Chronic) Hypertension (Chronic) Controlled with captopril and clonidine TTS correction (current) use of anticoagulants (Chronic) Clopidogrel (status post stenting lower extremities; Dr. Landry) Non healing left heel wound (Chronic) Obesity (BMI 30.0-34.9) (Chronic) Obesity, morbid (more than 100 lbs over ideal weight or BMI > 40) (Chronic) Periodontal disease (Chronic) Full dental extraction Peripheral arterial disease (Chronic) Previous Status post stenting, Dr. Landry. Proliferative diabetic retinopathy (Chronic) Recurrent cellulitis of lower leg (Chronic) Secondary diabetes mellitus with hypertension and end stage renal disease on dialysis (Chronic) Type 2 diabetes, uncontrolled, with neuropathy (Chronic) Well controlled when hospitalized. Left to his own devices, to much CHO intake and poor control Vitamin D deficiency (Chronic) Surgical History (Updated 12/09/20 @ 15:10 by Jah Reynoso DO) History of cataract removal with insertion of prosthetic lens (Chronic) History of surgery (Chronic) Left radiocephalic AV fistula, with subsequent thrombosis. History of surgery (Chronic) Left brachiocephalic AV fistula History of tonsillectomy and adenoidectomy (Chronic) as a child S/P peripheral artery angioplasty with stent placement (Acute) Dr. Landry Family History father Malignant neoplasm of liver Diabetes mellitus with coincident hypertension Unknown Obesity Social History (Updated 04/30/20 @ 20:49 by Luis M Curry MD) marital status: single occupational status: disabled smoking status: Former smoker alcohol intake frequency: does not drink substance use type: does not use MEDS/ALLERGIES Home Medications and Allergies Home Medications Medication Instructions Recorded Confirmed Type aspirin 81 mg tablet,delayed 81 mg PO QDAY 09/06/18 12/09/20 History release clopidogrel 75 mg tablet 75 mg PO QDAY #30 tab 12/11/18 12/09/20 Rx B complex-vitamin C-folic acid 100 1 tab PO QDAY #30 tab 03/28/19 12/09/20 Rx mg-folic acid 1 mg tablet dextran 70-hypromellose 1 each OP QIDP PRN 11/02/19 12/09/20 History silver sulfadiazine 1 appful TOPICAL PRN PRN 11/02/19 12/09/20 History insulin detemir U-100 40 unit SQ BID 11/06/19 12/09/20 History glipizide 5 mg tablet, extended 5 mg PO QDAY #30 tab 12/21/19 12/09/20 Rx release 24 hr arginine 7 gram-glutamine 7 See Rx Instructions PO .COMPLEX 04/16/20 12/09/20 Rx gram-calcium HMB 1.5 gram oral #30 each powder pack clonidine 0.2 mg/24 hr weekly 1 patch TRANSDERMA QWEEK #4 each 06/04/20 12/09/20 Rx transdermal patch acetaminophen 325 mg tablet 650 mg PO PRN PRN 06/18/20 12/09/20 History amino ac-protein hydr-whey pro 10 1 each PO 3XW ml 06/18/20 12/09/20 History gram-100 kcal/30 mL oral liquid calcitriol 0.25 mcg capsule 0.25 mcg PO 3XW 06/18/20 12/09/20 History calcium acetate(phosphat bind) 667 2,001 mg PO .TID pc #270 cap 06/18/20 12/09/20 Rx mg capsule clonidine HCl 0.1 mg tablet 0.1 mg PO ONCE PRN tab 06/18/20 12/09/20 History etelcalcetide 5 mg/mL intravenous 10 mg IV 3XW 06/18/20 12/09/20 History solution heparin (porcine) 1,000 unit/mL 1,500 unit IV 3XW ml 06/18/20 12/09/20 History injection solution heparin (porcine) 1,000 unit/mL 2,000 unit IV Q4W ml 06/18/20 12/09/20 History injection solution heparin (porcine) 1,000 unit/mL 4,000 unit IV 3XW ml 06/18/20 12/09/20 History injection solution hydroxyzine HCl 10 mg tablet 10 mg PO ONCE PRN tab 06/18/20 12/09/20 History insulin aspart U-100 100 unit/mL 12 unit SUB-Q .BID ac ml 06/18/20 12/09/20 History subcutaneous solution lisinopril 40 mg tablet 40 mg PO BID #60 tab 06/18/20 12/09/20 Rx loperamide 2 mg capsule 4 mg PO ONCE PRN cap 06/18/20 12/09/20 History ondansetron HCl 2 mg/mL 4 mg IM ONCE PRN ml 06/18/20 12/09/20 History intravenous solution sodium ferric gluconat-sucrose 62.5 mg IV QWEEK ml 06/18/20 12/09/20 History 62.5 mg/5 mL intravenous doxazosin 2 mg tablet 4 mg PO QHS #60 tab 07/10/20 12/09/20 Rx sevelamer HCl 800 mg tablet 2,400 mg PO .tid ac #270 tab 07/10/20 12/09/20 Rx rosuvastatin 5 mg tablet 5 mg PO QPM #30 tab 07/15/20 12/09/20 Rx amlodipine 10 mg tablet 10 mg PO QDAY #30 tab 08/25/20 12/09/20 Rx gabapentin 600 mg tablet 600 mg PO .COMPLEX #30 tab 11/07/20 12/09/20 Rx amitriptyline 25 mg tablet 25 mg PO QHS #30 tab 11/11/20 12/09/20 Rx Allergies Allergy/AdvReac Type Severity Reaction Status Date / Time cephalexin Allergy Mild rash Verified 12/09/20 13:50 Physical Examination Vital Signs Vital signs: Temp Pulse Resp BP Pulse Ox 98.1 F 104 H 16 152/80 98 12/09/20 17:14 12/09/20 17:14 12/09/20 17:14 12/09/20 17:14 12/09/20 17:14 Additional Exam Additional exam: General: He is tired but able to answer questions. HEENT: EOMI PERRL sclera anicteric. Neck is supple. Lungs are clear bilaterally. Heart: Regular rate and rhythm with 1/6 systolic murmur. Abdomen soft nontender. Extremities: Left upper extremity with AV fistula. Left medial heel with darkened skin graft area present. No left foot erythema. Right foot cool. He has ulcerations present between the first and second toes second and third toes and necrosis over the lateral halves of both the fourth and fifth toes. He has a large necrotic eschar over the medial right heel ankle and lower extremities. It is approximately 10 cm wide and 15 cm in length with irregular borders. It is nontender. I do not appreciate drainage or malodor. I do not appreciate crepitance. There is a remnant of Hydrofera Blue dressing adherent to the right medial ankle wound. Results Laboratory Findings CBC and BMP: 12/09/20 14:08 12/09/20 14:08 Abnormal lab findings: Abnormal Labs 12/09/20 12/09/20 12/09/20 14:08 14:08 14:30 RBC 3.47 L Hgb 10.3 L Hct 32.0 L Plt Count 454 H Neut % (Auto) 79.4 H Lymph % (Auto) 8.1 L Lymph # (Auto) 0.89 L [place] # (Auto) 1.15 H Absolute Neutrophils 8.77 H POC PT 14.9 H POC INR 1.3 H Sodium 131 L Chloride 88 L BUN 41 H Creatinine 4.1 H Calcium 10.5 H Alkaline Phosphatase 120 H C-Reactive Protein Albumin/Globulin Ratio 0.9 L 12/09/20 14:30 RBC Hgb Hct Plt Count Neut % (Auto) Lymph % (Auto) Lymph # (Auto) [place] # (Auto) Absolute Neutrophils POC PT POC INR Sodium Chloride BUN Creatinine Calcium Alkaline Phosphatase C-Reactive Protein 6.40 H Albumin/Globulin Ratio BUN 41 creatinine 4.1 white count 11 platelet count 454. I reviewed the results of the right ankle CT scan that showed 7 cm wound with areas of longitudinal gas bubbles. A/P Assessment and plan (1) Necrotizing soft tissue infection: Status: Acute Comment: Robert is a 55-year old diabetic with end-stage renal disease requiring dialysis Tuesday. He has had a 2-week history of wound over the right medial ankle. He describes enlarging area of wound. He denies history of trauma. He has known history of peripheral vascular disease with previous intervention. He has necrotizing infection involving the right medial ankle area with gas seen in tissue of the CT scan. Polymicrobial infection suspected. Patient has been started on IV Vanco, Zosyn, and clindamycin. Typically I do not add Clinda to Zosyn. However there can be added benefit in toxin associated group A strep, toxin associated staph aureus, and in this instance possible additional coverage for Clostridium perfringens. He has significant necrotic eschar over the right medial ankle. Surgery anticipated by Dr. Jay. He has a previous history of prolonged treatment for left calcaneal osteomyelitis 1 year ago. Although osteomyelitis has not been identified on right lower extremity, he has significant full-thickness skin loss over the right medial ankle and I expect another prolonged course of treatment. He is certainly at risk for osteomyelitis. Intraoperative cultures will be obtained. I would not expect need for clindamycin beyond 48 hours. No previous history of MRSA. He may not need vancomycin past his first dose. DePending on results of intraoperative cultures, Zosyn may be his primary antibiotic for ongoing therapy. Further recommendations to follow. Thank you very much for allowing me to be involved in his consultative care. Please call for questions. (2) Necrotic toes: Status: Acute Comment: He additionally has ulcerations between first and second toe, second and third toe, and necrosis of the lateral aspect of both the fourth and fifth toes. (3) Chronic kidney disease, stage V requiring chronic dialysis: Status: Acute Comment: MWF (4) Diabetes mellitus with ESRD (end-stage renal disease): Status: Acute Comment: co morbid condition (5) Peripheral arterial disease: Status: Chronic Comment: Previous Status post stenting, Dr. Landry. Time Spent With Patient Time: Total time spent is greater than 50% in coordination of care (as documented) at patient's floor/unit and/or counseling patient:
[2020-12-09] MEDS: CLINDAMYCIN 600 MG in DEXTROSE 5% IN WATER 50 ML IV SCH ×2 (18:06→23:47)
--- NOTE | 2020-12-09 18:12 | General Surgery Consult Note ---
HPI Data of Consult Primary Care Provider: Violet Silva Consult Narrative Patient Information: Note initiated : 12/09/20 at 6:00 pm Service Date, if different from initiated Date: [] Patient: Robert Montes 55 y/o M admitted on 12/09/20 for wound on right foot. ESTABLISHED PATIENT [Patient was seen in wound care clinic earlier this afternoon today. He was sent to ER for interval changes in his condition and development of sepsis due to CSSSI. He has background of IDDM, PAD, ESRD on HD and h/o skin and skin structure infections, multiple surgeries in past. He had stage 5, DTI with dry densely adherent necrotic eschar over his Right lower medial leg and involving lateral foes of foot. There was fluctuance, around the DTI site and surrounding erythema. I spoke with Hospitalist and ER and ID Physicians. I have reviewed his blood works, imaging studies and reassessed him on Med/Surg Floor. He is undergoing IV antibiotics and and awaits hemodialysis tomorrow morning. I reassessed patient with CELINE Hernandez In Patient wound care nurse. Reviewed his overnight progress and discussed his problem with Dr. Adair, Anesthesiologist and Dr. Joe, Accounting Analyst. Patient is at his baseline and tolerating IV antibiotic and MIST treatment well. We will proceed with Surgical debridement in OR later this morning and with Dialysis after that. Further treatment plans and recommendations about ongoing wound care, hem odialysis etc will be determined as his condition evolves. cc:: CC: José Yost [facility] All Active Problems (Updated 12/09/20 @ 17:48 by Peña White MD) Anemia due to end stage renal disease (Chronic) Diabetic foot ulcer (Acute) Chronic kidney disease, stage V requiring chronic dialysis (Acute) Necrotizing soft tissue infection (Acute) Necrotic toes (Acute) Depressed (Acute) SOB (shortness of breath) (Acute) Accelerated essential hypertension (Acute) Neuropathy associated with endocrine disorder (Acute) Diabetes mellitus with ESRD (end-stage renal disease) (Acute) Proliferative diabetic retinopathy (Chronic) Degenerative joint disease (Chronic) Periodontal disease (Chronic) Hypercholesterolemia (Chronic) Arthritis (Chronic) Anemia (Chronic) Non healing left heel wound (Chronic) Hyponatremia (Chronic) Sepsis (Acute) Hypertension (Acute) Peripheral arterial disease (Chronic) FPC (current) use of anticoagulants (Chronic) Secondary diabetes mellitus with hypertension and end stage renal disease on dialysis (Chronic) Type 2 diabetes, uncontrolled, with neuropathy (Chronic) ESRD (end stage renal disease) on dialysis (Chronic) Hypertension (Chronic) Hyperlipidemia (Chronic) Obesity (BMI 30.0-34.9) (Chronic) Cellulitis of heel, left (Chronic) Diabetic foot ulcer (Chronic) Chronic renal failure, stage 5 (Chronic) Hyponatremia (Chronic) Recurrent cellulitis of lower leg (Chronic) Vitamin D deficiency (Chronic) Obesity, morbid (more than 100 lbs over ideal weight or BMI > 40) (Chronic) Hyperparathyroidism, secondary (Chronic) Medical History (Updated 12/09/20 @ 17:48 by Peña White MD) Abscess of skin or subcutaneous tissue (Resolved) Anemia (Chronic) Arthritis (Chronic) Cellulitis of heel, left (Chronic) Ugent need of incision and drainage left heel Chronic renal failure, stage 5 (Chronic) Degenerative joint disease (Chronic) Diabetic foot ulcer (Chronic) treated with surgery, abx, hbo and skin graft ESRD (end stage renal disease) on dialysis (Chronic) History of folliculitis (Chronic) associated inguinal infection requiring incision and drainage Hypercholesterolemia (Chronic) Hyperglycemia (Resolved) Hyperkalemia (Resolved) Hyperlipidemia (Chronic) Hyperparathyroidism, secondary (Chronic) Hypertension (Chronic) Controlled with captopril and clonidine TTS FPC (current) use of anticoagulants (Chronic) Clopidogrel (status post stenting lower extremities; Dr. Landry) Non healing left heel wound (Chronic) Obesity (BMI 30.0-34.9) (Chronic) Obesity, morbid (more than 100 lbs over ideal weight or BMI > 40) (Chronic) Periodontal disease (Chronic) Full dental extraction Peripheral arterial disease (Chronic) Previous Status post stenting, Dr. Landry. Proliferative diabetic retinopathy (Chronic) Recurrent cellulitis of lower leg (Chronic) Secondary diabetes mellitus with hypertension and end stage renal disease on dialysis (Chronic) Type 2 diabetes, uncontrolled, with neuropathy (Chronic) Well controlled when hospitalized. Left to his own devices, to much CHO intake and poor control Vitamin D deficiency (Chronic) Surgical History (Updated 12/09/20 @ 15:10 by Jah Reynoso DO) History of cataract removal with insertion of prosthetic lens (Chronic) History of surgery (Chronic) Left radiocephalic AV fistula, with subsequent thrombosis. History of surgery (Chronic) Left brachiocephalic AV fistula History of tonsillectomy and adenoidectomy (Chronic) as a child S/P peripheral artery angioplasty with stent placement (Acute) Dr. Landry Family History father Malignant neoplasm of liver Diabetes mellitus with coincident hypertension Unknown Obesity Social History (Updated 04/30/20 @ 20:49 by Luis M Curry MD) marital status: single occupational status: disabled smoking status: Former smoker alcohol intake frequency: does not drink substance use type: does not use MEDS/ALLERGIES Home Medications and Allergies Home Medications Medication Instructions Recorded Confirmed Type aspirin 81 mg tablet,delayed 81 mg PO QDAY 09/06/18 12/09/20 History release clopidogrel 75 mg tablet 75 mg PO QDAY #30 tab 12/11/18 12/09/20 Rx B complex-vitamin C-folic acid 100 1 tab PO QDAY #30 tab 03/28/19 12/09/20 Rx mg-folic acid 1 mg tablet dextran 70-hypromellose 1 each OP QIDP PRN 11/02/19 12/09/20 History silver sulfadiazine 1 appful TOPICAL PRN PRN 11/02/19 12/09/20 History insulin detemir U-100 40 unit SQ BID 11/06/19 12/09/20 History glipizide 5 mg tablet, extended 5 mg PO QDAY #30 tab 12/21/19 12/09/20 Rx release 24 hr arginine 7 gram-glutamine 7 See Rx Instructions PO .COMPLEX 04/16/20 12/09/20 Rx gram-calcium HMB 1.5 gram oral #30 each powder pack clonidine 0.2 mg/24 hr weekly 1 patch TRANSDERMA QWEEK #4 each 06/04/20 12/09/20 Rx transdermal patch acetaminophen 325 mg tablet 650 mg PO PRN PRN 06/18/20 12/09/20 History amino ac-protein hydr-whey pro 10 1 each PO 3XW ml 06/18/20 12/09/20 History gram-100 kcal/30 mL oral liquid calcitriol 0.25 mcg capsule 0.25 mcg PO 3XW 06/18/20 12/09/20 History calcium acetate(phosphat bind) 667 2,001 mg PO .TID pc #270 cap 06/18/20 12/09/20 Rx mg capsule clonidine HCl 0.1 mg tablet 0.1 mg PO ONCE PRN tab 06/18/20 12/09/20 History etelcalcetide 5 mg/mL intravenous 10 mg IV 3XW 06/18/20 12/09/20 History solution heparin (porcine) 1,000 unit/mL 1,500 unit IV 3XW ml 06/18/20 12/09/20 History injection solution heparin (porcine) 1,000 unit/mL 2,000 unit IV Q4W ml 06/18/20 12/09/20 History injection solution heparin (porcine) 1,000 unit/mL 4,000 unit IV 3XW ml 06/18/20 12/09/20 History injection solution hydroxyzine HCl 10 mg tablet 10 mg PO ONCE PRN tab 06/18/20 12/09/20 History insulin aspart U-100 100 unit/mL 12 unit SUB-Q .BID ac ml 06/18/20 12/09/20 History subcutaneous solution lisinopril 40 mg tablet 40 mg PO BID #60 tab 06/18/20 12/09/20 Rx loperamide 2 mg capsule 4 mg PO ONCE PRN cap 06/18/20 12/09/20 History ondansetron HCl 2 mg/mL 4 mg IM ONCE PRN ml 06/18/20 12/09/20 History intravenous solution sodium ferric gluconat-sucrose 62.5 mg IV QWEEK ml 06/18/20 12/09/20 History 62.5 mg/5 mL intravenous doxazosin 2 mg tablet 4 mg PO QHS #60 tab 07/10/20 12/09/20 Rx sevelamer HCl 800 mg tablet 2,400 mg PO .tid ac #270 tab 07/10/20 12/09/20 Rx rosuvastatin 5 mg tablet 5 mg PO QPM #30 tab 07/15/20 12/09/20 Rx amlodipine 10 mg tablet 10 mg PO QDAY #30 tab 08/25/20 12/09/20 Rx gabapentin 600 mg tablet 600 mg PO .COMPLEX #30 tab 11/07/20 12/09/20 Rx amitriptyline 25 mg tablet 25 mg PO QHS #30 tab 11/11/20 12/09/20 Rx Allergies Allergy/AdvReac Type Severity Reaction Status Date / Time cephalexin Allergy Mild rash Verified 12/09/20 13:50 Physical Examination Vital Signs Vital signs: Temp Pulse Resp BP Pulse Ox 98.1 F 104 H 16 152/80 98 12/09/20 17:14 12/09/20 17:14 12/09/20 17:14 12/09/20 17:14 12/09/20 17:14 General physical appearance General physical exam: well developed, well nourished, no distress and no pain Eyes Eye exam: PERRL and normal ocular movement ENT ENT exam: normal pinna, normal mucosa and no congestion Head Head exam IM: Present atraumatic and normocephalic Neck Neck exam: no masses, trachea midline and no venous distension Cardiovascular Cardiovascular exam IM: Present normal rate and rhythm Respiratory Respiratory exam: normal expansion and clear to auscultation Abdomen Abdomen: Present soft, non tender and bowel sounds Genitourinary Genitourinary (Male): Present other (ESRD on Hemodialysis) Integumentary Integumentary: Present other (CSSSI WITH NECROSIS of skin and subcutaneous tissue around RIGHT lower medial leg and lateral toes of foot. Fluctuance and odor from necrotic skin edges aroud the necrotic edge lower medial leg.) Neurologic Neurologic: Present other (Diabetes with peripheral neuropathy. Insensate foot , ankle and lower leg up to calf.) Musculoskeletal Musculoskeletal: Present other (Wheel chair for ambulation. Right knee and ankle ROM are intact.) Psychiatric Psychiatric: Present oriented to time, oriented to person, oriented to place, speech is normal and memory intact Additional Findings Additional exam: Patient had PAD with no palpable pedal pulses Right foot. Results Labs Result diagrams: 12/10/20 05:24 12/10/20 05:24 Labs: Abnormal lab results 12/09/20 12/09/20 12/09/20 Range/Units 14:08 14:08 14:30 RBC 3.47 L (4.50-5.90) M/mcL Hgb 10.3 L (13.5-16.5) g/dL Hct 32.0 L (41.0-55.0) % Plt Count 454 H (140-440) K/mcL Neut % (Auto) 79.4 H (38.0-78.0) % Lymph % (Auto) 8.1 L (15.0-49.0) % Lymph # (Auto) 0.89 L (1.50-4.80) K/mcL [place] # (Auto) 1.15 H (0.10-0.90) K/mcL Absolute Neutrophils 8.77 H (1.80-8.00) K/mcL POC PT 14.9 H (11.9-14.5) sec POC INR 1.3 H (0.8-1.2) Sodium 131 L (133-145) mmol/L Chloride 88 L (96-108) mmol/L BUN 41 H (6-20) mg/dL Creatinine 4.1 H (0.7-1.2) mg/dL Calcium 10.5 H (8.6-10.4) mg/dL Alkaline Phosphatase 120 H (39-117) U/L C-Reactive Protein (0.03-0.80) mg/dL Albumin/Globulin Ratio 0.9 L (1.0-2.3) 12/09/20 Range/Units 14:30 RBC (4.50-5.90) M/mcL Hgb (13.5-16.5) g/dL Hct (41.0-55.0) % Plt Count (140-440) K/mcL Neut % (Auto) (38.0-78.0) % Lymph % (Auto) (15.0-49.0) % Lymph # (Auto) (1.50-4.80) K/mcL [place] # (Auto) (0.10-0.90) K/mcL Absolute Neutrophils (1.80-8.00) K/mcL POC PT (11.9-14.5) sec POC INR (0.8-1.2) Sodium (133-145) mmol/L Chloride (96-108) mmol/L BUN (6-20) mg/dL Creatinine (0.7-1.2) mg/dL Calcium (8.6-10.4) mg/dL Alkaline Phosphatase (39-117) U/L C-Reactive Protein 6.40 H (0.03-0.80) mg/dL Albumin/Globulin Ratio (1.0-2.3) Diabetes panel 12/09/20 Range/Units 14:08 Sodium 131 L (133-145) mmol/L Potassium 5.0 (3.3-5.1) mmol/L Chloride 88 L (96-108) mmol/L Carbon Dioxide 27 (22-30) mmol/L BUN 41 H (6-20) mg/dL Creatinine 4.1 H (0.7-1.2) mg/dL Glucose 101 (70-105) mg/dL Calcium 10.5 H (8.6-10.4) mg/dL AST 17 (<40) U/L ALT 10 (<40) U/L Alkaline Phosphatase 120 H (39-117) U/L Total Protein 7.0 (5.9-8.4) gm/dL Albumin 3.3 (3.2-5.2) gm/dL Calcium panel 12/09/20 Range/Units 14:08 Calcium 10.5 H (8.6-10.4) mg/dL Albumin 3.3 (3.2-5.2) gm/dL Pituitary panel 12/09/20 Range/Units 14:08 Sodium 131 L (133-145) mmol/L Potassium 5.0 (3.3-5.1) mmol/L Chloride 88 L (96-108) mmol/L Carbon Dioxide 27 (22-30) mmol/L BUN 41 H (6-20) mg/dL Creatinine 4.1 H (0.7-1.2) mg/dL Glucose 101 (70-105) mg/dL Calcium 10.5 H (8.6-10.4) mg/dL Adrenal panel 12/09/20 Range/Units 14:08 Sodium 131 L (133-145) mmol/L Potassium 5.0 (3.3-5.1) mmol/L Chloride 88 L (96-108) mmol/L Carbon Dioxide 27 (22-30) mmol/L BUN 41 H (6-20) mg/dL Creatinine 4.1 H (0.7-1.2) mg/dL Glucose 101 (70-105) mg/dL Calcium 10.5 H (8.6-10.4) mg/dL Total Bilirubin 0.4 (0.1-1.0) mg/dL AST 17 (<40) U/L ALT 10 (<40) U/L Alkaline Phosphatase 120 H (39-117) U/L Total Protein 7.0 (5.9-8.4) gm/dL Albumin 3.3 (3.2-5.2) gm/dL All other labs normal. A/P Narrative A/P Narrative: Assessment: CSSSI Sepsis. Necrotic skin and subcutaneous tissue Right lower leg and lateral toes. ESRD, Hemodialysis PAD HTN IDDM Chronic debility / Deconditioning Anemia Plan: For Surgical debridement of RIGHT foot toes, ankle and leg wounds and necrotic tissue. Pulse lavage irrigation. Tissue for cultures and biopsies. Further recommendations later. Overall I have spent a long time speaking with patient, nurses, doctors and in documentation thus far. Time Spent With Patient Time: Total time spent is greater than 50% in coordination of care (as documented) at patient's floor/unit and/or counseling patient: Total time spent with greater than 50% in coordination of care (as documented) at patient's floor/unit and/or counseling patient:: Greater than 35 minutes
[2020-12-09] MEDS ORDERED: cloNIDine HCL 0.1 MG TABLET PO PRN (19:32)
[2020-12-09] MEDS ORDERED: DEXTRAN HYPROMELLOSE OP PRN (19:32)
[2020-12-09] MEDS ORDERED: hydrOXYzine 10 MG TABLET PO PRN (19:32)
[2020-12-09] MEDS ORDERED: CALCITRIOL 0.25 MCG CAPSULE PO SCH (19:45)
[2020-12-09] MEDS ORDERED: SEVELAMER HCL 2400 MG PO SCH (19:45)
[2020-12-09] MEDS ORDERED: CALCIUM ACETATE 667 MG CAPSULE PO SCH (19:45)
[2020-12-09] MEDS ORDERED: NON FORMULARY MEDICATION 1 DOSE MISCELL (Gabapentin 600 MG) PO SCH (19:45)
[2020-12-09] MEDS ORDERED: NON FORMULARY MEDICATION 1 DOSE MISCELL (Lisinopril 40 MG) PO SCH (21:00)
[2020-12-09] MEDS ORDERED: INSULIN DETEMIR SQ SCH (21:00)
[2020-12-09] MEDS ORDERED: ROSUVASTATIN 5 MG PO SCH (21:00)
[2020-12-09] MEDS: AMITRIPTYLINE 25 MG TABLET PO SCH (21:01)
[2020-12-09] MEDS: DOCUSATE SODIUM 100 MG CAPSULE PO SCH (21:01)
[2020-12-09] MEDS: HEPARIN 5,000 UNIT/ML VIAL SQ SCH (21:02)
[2020-12-09] MEDS: PIPERACILLIN SODIUM/TAZOBACTAM 2.25 GM in DEXTROSE 5% IN WATER 50 ML IV SCH (22:10)
[2020-12-09] MEDS: 0.9 % SODIUM CHLORIDE 10 ML SYRINGE IV SCH (22:17)
[2020-12-09] MEDS ORDERED: LISINOPRIL 10 MG TABLET ONE (22:23)
[2020-12-09] MEDS: DOXAZOSIN 4 MG PO SCH (23:28)
[2020-12-10] MEDS: DOXAZOSIN 4 MG PO SCH (04:25)
[2020-12-10] MEDS: 0.9 % SODIUM CHLORIDE 10 ML SYRINGE IV SCH ×3 (05:26→22:33)
[2020-12-10] MEDS: PIPERACILLIN SODIUM/TAZOBACTAM 2.25 GM in DEXTROSE 5% IN WATER 50 ML IV SCH ×3 (05:26→22:59)
[2020-12-10] MEDS: CLINDAMYCIN 600 MG in DEXTROSE 5% IN WATER 50 ML IV SCH ×3 (06:04→22:26)
[2020-12-10] MEDS ORDERED: CARBOXYMETHYLCELLULOSE SODIUM 1 EACH DROPER.GEL OU PRN (06:15)
[2020-12-10 06:34] LABS: Basophils # (Auto) 0.04 K/mcL (0.00-0.20); Basophils % (Auto) 0.3 % (0.0-2.0); Eosinophils # (Auto) 0.26 K/mcL (0.00-0.70); Eosinophils % (Auto) 2.1 % (0.0-7.0); Hematocrit 26.7 % (41.0-55.0); Hemoglobin 8.7 g/dL (13.5-16.5); Lymphocytes # (Auto) 0.83 K/mcL (1.50-4.80); Lymphocytes % (Auto) 6.6 % (15.0-49.0); Mean Cell Volume 91.4 fL (80.0-100.0); Mean Corpuscular HGB Conc 32.6 g/dL (31.0-36.0); Mean Platelet Volume 8.9 fL (7.4-10.4); Monocytes # (Auto) 0.99 K/mcL (0.10-0.90); Monocytes % (Auto) 7.8 % (1.0-12.0); Neutrophils % (Auto) 83.2 % (38.0-78.0); Platelet Count 418 K/mcL (140-440); RBC 2.92 M/mcL (4.50-5.90); Red Cell Distribution Width 14.3 % (11.5-14.5); WBC 12.7 K/mcL (4.5-11.0)
--- NOTE | 2020-12-10 07:07 | Nephrology Progress Note ---
SUBJECTIVE Subjective Patient information: Note initiated : 12/10/20 at 7:05 am Patient: Robert Montes 55 y/o M admitted on 12/09/20 for wound on right foot. Chief Complaint: Right foot wound Pertinent ROS: No shortness of breath No chest pain No significant fluid overload. Constitutional Vitals: Vital Signs Temp Pulse Resp BP Pulse Ox 98.4 F 93 H 22 177/96 97 12/10/20 03:45 12/10/20 03:45 12/10/20 03:45 12/10/20 03:45 12/10/20 03:45 Period Temp Pulse Resp BP Sys/Jesus Pulse Ox Last 24 Hr 98.1 F-99.3 F 90-104 16-28 122-177/70-96 97-99 Intake and Output 12/09/20 12/10/20 12/10/20 21:59 05:59 13:59 Intake Total 604 504 50 Balance 604 504 50 Weight 263 lb 6.4 oz Intake & Output: Intake & Output 12/09/20 12/10/20 12/10/20 21:59 05:59 13:59 Intake Total 604 504 50 Balance 604 504 50 Weight 263 lb 6.4 oz Intake: IV 604 104 50 Cleocin 600 mg In Dextrose 5% 54 54 in Water 50 ml @ 100 mls/hr IV Q8H [facility] Rx#:[id number] Zosyn 2.25 gm In Dextrose 5% in 50 50 50 Water 50 ml @ 100 mls/hr IV Q8H [facility] Rx#:[id number] Vancomycin 1,500 mg In Sodium 500 Chloride 0.9% 500 ml @ 333.3 mls/hr IV ONCE ONE Rx#: [id number] Oral 400 General appearance: cooperative and no acute distress Head Head exam: Present normal inspection Eye Eye exam: Present normal appearance ENT ENT exam: Present mucous membranes moist Respiratory Respiratory exam: Absent respiratory distress Cardiovascular Cardiovascular exam: Present normal rate and rhythm GI/Abdominal GI/Abdominal exam: Present soft; Absent tenderness Extremities Exam Extremities exam: Absent joint swelling and pedal edema Neurological Exam Neurological exam: Present alert and oriented X3 Psychiatric Psychiatric exam: Present normal affect and normal mood Skin Skin exam: Present rash Additional comments: Right foot ulcer A/P Assessment and plan (1) ESRD (end stage renal disease) on dialysis: Assessment and plan: Robert Montes is a 55-year-old male with end stage renal disease on chronic hemodialysis, hypertension, hyperlipidemia and diabetes mellitus type 2 referred to the emergency room from the wound care clinic for the right foot wound on 12/09/20 and admitted. The wound appears to be infected and likely needs surgical debridement. End stage renal disease on chronic hemodialysis. Chronic anemia due to ESRD. Hyponatremia associated with ESRD. Plan: Hemodialysis for 4.5 hours today or tomorrow after surgery. Antibiotic dosing for ESRD on hemodialysis. Status: Chronic (2) Hyponatremia: Status: Chronic (3) Anemia due to end stage renal disease: Status: Chronic Time Spent With Patient Time: Total time spent is greater than 50% in coordination of care (as documented) at patient's floor/unit and/or counseling patient:
[2020-12-10 07:26] LABS: ALT/SGPT 10 U/L (<40); AST/SGOT 15 U/L (<40); Albumin 2.9 gm/dL (3.2-5.2); Albumin/Globulin Ratio 0.9 (1.0-2.3); Alkaline Phosphatase 111 U/L (39-117); Bilirubin,Direct 0.2 mg/dL (<0.3); Bilirubin,Total 0.4 mg/dL (0.1-1.0); Blood Urea Nitrogen 53 mg/dL (6-20); Calcium 9.9 mg/dL (8.6-10.4); Carbon Dioxide 26 mmol/L (22-30); Chloride 88 mmol/L (96-108); Globulin 3.4 gm/dL (2.2-3.7); Glomerular Filtration Rate 12; Glucose 67 mg/dL (70-105); Lactate Dehydrogenase 131 U/L (135-225); Phosphorous 7.6 mg/dL (2.5-4.5); Triglycerides 69 mg/dL (<150); Uric Acid 5.2 mg/dL (2.5-8.0)
[2020-12-10] MEDS: INSULIN LISPRO 1 UNIT/0.01 ML UNIT SQ SCH ×4 (07:40→22:38)
--- NOTE | 2020-12-10 07:43 | Internal Med Progress Note ---
SUBJECTIVE Subjective Patient information: Note initiated : 12/10/20 at 7:36 am Service Date, if different from initiated Date: [] Patient: Robert Montes a 55 y/o M admitted on 12/09/20 for wound on right foot. Chief Complaint: [] Interval history: History of present illness: Mr. Montes is a 55 year old M Presents to the ED sent in by Dr. Jay at the wound care clinic for a right foot nonhealing wound that appears to be infected at this point and likely needs surgical debridement per Dr. Dominguez. Patient reports increased redness and also drainage which she describes as brown. Denies fevers but positive for chills. 12/10 No overnight event or new complaints. Patient for surgical debridement today. Review of Systems: denies headache/fever/chills/nausea/vomiting/chest or abdominal pain/cough/dyspnea/diarrhea. Otherwise see above. Constitutional Vitals: Vital Signs Temp Pulse Resp BP Pulse Ox 98.4 F 93 H 22 177/96 97 12/10/20 03:45 12/10/20 03:45 12/10/20 03:45 12/10/20 03:45 12/10/20 03:45 Period Temp Pulse Resp BP Sys/Jesus Pulse Ox Last 24 Hr 98.1 F-99.3 F 90-104 16-28 122-177/70-96 97-99 Intake and Output 12/09/20 12/10/20 12/10/20 21:59 05:59 13:59 Intake Total 604 504 104 Balance 604 504 104 Weight 119.476 kg Intake & Output: Intake & Output 12/09/20 12/10/20 12/10/20 21:59 05:59 13:59 Intake Total 604 504 104 Balance 604 504 104 Weight 119.476 kg Intake: IV 604 104 104 Cleocin 600 mg In Dextrose 5% 54 54 54 in Water 50 ml @ 100 mls/hr IV Q8H [facility] Rx#:[id number] Zosyn 2.25 gm In Dextrose 5% in 50 50 50 Water 50 ml @ 100 mls/hr IV Q8H [facility] Rx#:[id number] Vancomycin 1,500 mg In Sodium 500 Chloride 0.9% 500 ml @ 333.3 mls/hr IV ONCE ONE Rx#: [id number] Oral 400 Exam: General: Alert, Awake, No acute Distress Eyes/N/T: EOMI, Head/Neck: neck supple, CV: RRR, No murmurs, Pulm: Clear b/l, no wheezing/rhonchi/rales Abd: soft, nontender, +BS x4 Ext: no clubbing/cyanosis/edema to RLE. LLE in dressings Neuro: Alert, no focal deficits, moves all extremities, Skin: warm/dry OBJ DATA Labs CBC & Chem 7: 12/10/20 05:24 12/10/20 05:24 Labs: Abnormal Lab Results 12/10/20 12/10/20 12/09/20 05:24 05:24 14:30 WBC 12.7 H RBC 2.92 L Hgb 8.7 L Hct 26.7 L Plt Count Neut % (Auto) 83.2 H Lymph % (Auto) 6.6 L Lymph # (Auto) 0.83 L [place] # (Auto) 0.99 H Absolute Neutrophils 10.55 H ESR POC PT POC INR Sodium 129 L Chloride 88 L BUN 53 H Creatinine 4.9 H Glucose 67 L Calcium Phosphorus 7.6 H* Alkaline Phosphatase Lactate Dehydrogenase 131 L C-Reactive Protein 6.40 H Albumin 2.9 L Albumin/Globulin Ratio 0.9 L 12/09/20 12/09/20 12/09/20 14:30 14:30 14:08 WBC RBC Hgb Hct Plt Count Neut % (Auto) Lymph % (Auto) Lymph # (Auto) [place] # (Auto) Absolute Neutrophils ESR 116 H POC PT 14.9 H POC INR 1.3 H Sodium 131 L Chloride 88 L BUN 41 H Creatinine 4.1 H Glucose Calcium 10.5 H Phosphorus Alkaline Phosphatase 120 H Lactate Dehydrogenase C-Reactive Protein Albumin Albumin/Globulin Ratio 0.9 L 12/09/20 14:08 WBC RBC 3.47 L Hgb 10.3 L Hct 32.0 L Plt Count 454 H Neut % (Auto) 79.4 H Lymph % (Auto) 8.1 L Lymph # (Auto) 0.89 L [place] # (Auto) 1.15 H Absolute Neutrophils 8.77 H ESR POC PT POC INR Sodium Chloride BUN Creatinine Glucose Calcium Phosphorus Alkaline Phosphatase Lactate Dehydrogenase C-Reactive Protein Albumin Albumin/Globulin Ratio Meds: Medications Acetaminophen (Tylenol) 650 mg PO Q6HP PRN PRN Reason: PAIN/FEVER > 101 Albuterol/Ipratropium (Duoneb) 3 ml NEB Q4HP PRN PRN Reason: Shortness Of Breath Amitriptyline HCl (Elavil) 25 mg PO QHS [facility] Last Admin: 12/09/20 21:01 Dose: 25 mg Documented by: Amlodipine Besylate (Norvasc) 10 mg PO QDAY [facility] Artificial Tears (Refresh Celluvisc) 1 each OU QIDP PRN PRN Reason: Dry Eyes Aspirin (Aspirin) 81 mg PO QDAY [facility] Atorvastatin Calcium (Lipitor) 10 mg PO HS [facility] Calcitriol (Rocaltrol) 0.25 mcg PO MoWeFr@0900 [facility] Calcium Acetate (Phoslo) 2,001 mg PO TIDPC [facility] Clonidine HCl (Catapres Tts 2) 1 patch TD QWEEK [facility] Clonidine HCl (Catapres) 0.1 mg PO ONCE PRN PRN Reason: Blood Pressure Clopidogrel Bisulfate (Plavix) 75 mg PO QDAY [facility] Dextrose (Dextrose 50%) 0 ml IV UD PRN PRN Reason: Hypoglycemia Last Admin: 12/09/20 17:47 Dose: 25 ml Documented by: Diagnostic Test (Pha) (Accu-Chek) 1 each FS ACHS [facility] Last Admin: 12/09/20 20:50 Dose: 1 each Documented by: Docusate Sodium (Colace) 100 mg PO BID [facility] Last Admin: 12/09/20 21:01 Dose: 100 mg Documented by: Doxazosin Mesylate (Cardura) 4 mg PO QHS [facility] Gabapentin (Neurontin) 600 mg PO MoWeFr@1600 [facility] Glipizide (Glucotrol Xl) 5 mg PO QDAY [facility] Glucose (Insta-Glucose) 15 gm PO PRN PRN PRN Reason: Hypoglycemia Heparin Sodium (Porcine) (Heparin) 5,000 unit SQ Q12 [facility] Last Admin: 12/09/20 21:02 Dose: 5,000 unit Documented by: Heparin Sodium (Porcine) (Heparin) 4,000 unit IV 3XW [facility] Hydroxyzine HCl (Vistaril) 10 mg PO ONCE PRN PRN Reason: Itching Potassium Chloride 40 meq/ (Dextrose) 520 mls @ 130 mls/hr IV UD PRN PRN Reason: Potassium < 3 Magnesium Sulfate (Magnesium Sulfate) 2 gm in 50 mls @ 50 mls/hr IV UD PRN PRN Reason: Magnesium </= 1.6 Clindamycin Phosphate 600 mg/ (Dextrose) 54 mls @ 100 mls/hr IV Q8H [facility]; Protocol Last Infusion: 12/10/20 07:06 Dose: Infused Documented by: Piperacillin Sod/Tazobactam (Sod 2.25 gm/ Dextrose) 50 mls @ 100 mls/hr IV Q8H [facility] Last Infusion: 12/10/20 06:04 Dose: Infused Documented by: Insulin Glargine (Lantus) 40 unit SQ BID [facility] Insulin Human Lispro (Humalog) 0 unit SQ ACHS [facility]; Protocol Last Admin: 12/09/20 21:02 Dose: 2 units Documented by: Lactulose (Cephulac) 20 gm PO DAILYP PRN PRN Reason: Constipation Lisinopril (Zestril) 40 mg PO BID [facility] Non-Formulary Medication (Sodium Ferric Gluconat-Sucrose [Ferrlecit]) 62.5 mg IV QWEEK [facility] Ondansetron HCl (Zofran) 4 mg IV Q4HP PRN PRN Reason: Nausea And Vomiting Polyethylene Glycol (Miralax) 17 gm PO DAILYP PRN PRN Reason: Constipation Potassium Chloride (Kdur) 40 meq PO UD PRN PRN Reason: Potssium is 3-3.5 Potassium Chloride (Kdur) 40 meq PO UD PRN PRN Reason: Potassium < 3 Senna (Senokot) 2 tab PO DAILYP PRN PRN Reason: Constipation Sevelamer Carbonate (Renvela) 2,400 mg PO TIDAC [facility] Sodium Chloride (Saline Flush) 10 ml IV Q8 [facility] Last Admin: 12/10/20 05:26 Dose: 10 ml Documented by: Vancomycin HCl (Vancomycin Per Pharmacy) 1 order IV UD [facility]; Protocol Vitamin B Complex (Vitamin B Complex) 1 cap PO QDAY [facility] A/P Narrative A/P Narrative: A: *Left foot non-healing diabetic wound infection w/subcutaneous necrosis/gas: *DM w/neuropathy: A1c *ESRD: Follows with Dr. Joe *Anemia, chronic *PVD: on ASA/Plavix/statin, RLE stent[place] [address] Landry *HTN/HLD: *Hyponatremia, chronic: P: -Broad antibiotics with Vanc(d/c),/Zosyn, Clinda(for first 48rs) - deescalate per cx's and ID orders -pending BC/WC, mrsa pcr neg -Dr. Jay for I&D -Dr. White has seen, pt likely will be on zosyn for ongoing IV therapy -HD/electrolytes per nephrology -Continue home Norvasc/clonidine/lisinopril -Continue ASA/Plavix/statin -Basal is 40bid (hold for low BG) and SSI. A1c pending -PT/OT -ppx: Heparin full Code Time Spent With Patient Time: Total time spent is greater than 50% in coordination of care (as documented) at patient's floor/unit and/or counseling patient: QUALITY VTE Deep Vein Thrombosis/Pulmonary Embolism Present on Admission: No
[2020-12-10] MEDS: DEXTROSE 50% 50 ML VIAL IV PRN ×2 (07:47→10:26)
[2020-12-10] MEDS ORDERED: glipiZIDE 5 MG TAB.XL.24H PO SCH (09:00)
[2020-12-10] MEDS ORDERED: INSULIN GLARGINE, HUMAN 1 UNIT/0.01 ML SQ SCH (09:00)
[2020-12-10] MEDS: SEVELAMER 800 MG TABLET PO SCH ×3 (09:32→18:52)
[2020-12-10] MEDS: ASPIRIN 81 MG TAB.CHEW PO SCH (09:33)
[2020-12-10] MEDS: DOCUSATE SODIUM 100 MG CAPSULE PO SCH ×2 (09:33→22:29)
[2020-12-10] MEDS: CALCIUM ACETATE 667 MG CAPSULE PO SCH ×3 (09:33→18:55)
[2020-12-10] MEDS: amLODIPine 10 MG TABLET PO SCH (09:41)
[2020-12-10] MEDS: CLOPIDOGREL 75 MG TABLET PO SCH (09:41)
[2020-12-10] MEDS: INSULIN GLARGINE, HUMAN 1 UNIT/0.01 ML SQ SCH ×2 (09:41→22:32)
[2020-12-10] MEDS: LISINOPRIL 20 MG TABLET PO SCH ×2 (09:42→22:29)
[2020-12-10] MEDS: CALCITRIOL 0.25 MCG CAPSULE PO SCH (09:42)
[2020-12-10] MEDS: VITAMIN B COMPLEX 1 CAPSULE PO SCH (09:42)
[2020-12-10] MEDS: HEPARIN 5,000 UNIT/ML VIAL SQ SCH ×2 (09:48→22:31)
[2020-12-10] MEDS ORDERED: MIDAZOLAM 5 MG/5 ML VIAL ONE (12:04)
[2020-12-10] MEDS ORDERED: fentaNYL 100 MCG/2 ML VIAL IV ONE (12:04)
--- NOTE | 2020-12-10 13:22 | Brief Operative Note ---
Brief Operative Note Date of procedure: 12/10/20 Pre-op diagnosis: SEPSIS. CSSSI Gangrene: Skin sub cutaneous tissues RIGHT lower leg / toes Post-op diagnosis: same Procedure: EXCISION debridement, pulse lavage irrigation, cultures and biopsies. Grafts/Implants: No Anesthesia: conscious sedation Findings: See Photographs RIGHT lower leg wound 15 x 11 x 2 CM : RIGHT foot between 1st and 2nd toes 3.5 x 2 x 1.5 CM; 2nd and 3rd toes 3.5 x 2 x 1.5 CM; 3rd and 4th toes 2 x 1.5 x 1 CM All wounds are stage 4 Wound bed with exposed tendon, muscles and synovial tissue Surgeon: Osiel Jay Estimated blood loss (cc): 10 Specimens Removed/Pathology: other (Tiisue for culture , Biopsy and Pathology ) Condition: stable Disposition: floor
[2020-12-10] MEDS ORDERED: [UNRECOGNIZED DRUG - OTHER] IV SCH (16:00)
--- NOTE | 2020-12-10 16:19 | Ultrasound Report ---
History: Diabetic with nonhealing ulcer in the right foot FINDINGS: Distal abdominal aorta is partially visualized and has a maximum peak systolic flow velocity of 70 cm/s. The common iliac arteries are obscured by bowel gas. External iliacs have normal flow velocities and triphasic waveform patterns. Right leg: Large amount of plaque from the common femoral artery to the distal thigh. Common femoral artery has a peak systolic flow velocity 156 cm/s. The profunda is 218. Proximal superficial femoral is 185, mid superficial femoral is 424 cm/s. Distal to the stenosis in the mid superficial femoral artery there are monophasic waveform patterns with a peak systolic flow velocity is 35 cm/s. The right popliteal artery is completely occluded. There is also occlusion of the anterior tibial peroneal and posterior tibial arteries. In the left leg there is a moderate amount of mixed plaque from the groin to the distal thigh. In the common femoral artery the peak systolic flow velocity is 164, profunda 122, proximal superficial femoral 163 and mid superficial femoral 44 cm/s. Below the mid thigh the waveform patterns change from a triphasic to biphasic waveform. The distal superficial femoral is 108 cm/s. Popliteal ranges from 51 to 131 cm/s. There is blood flow with normal flow velocities in the left anterior and posterior tibial as well as the peroneal arteries. IMPRESSION: Severe atherosclerotic disease in both legs with a greater than 80% stenosis in the midportion of the right thigh and less than 70% stenosis in the midportion of the left thigh. Complete occlusion of the right popliteal artery and occlusion of the calf arteries on the right side. Interpreted and Authenticated by: Shelton Shah 12/10/20
--- NOTE | 2020-12-10 18:11 | General Surgery Progress Note ---
SUBJECTIVE Subjective Patient information: Note initiated : 12/10/20 at 5:59 pm Service Date, if different from initiated Date: [] Patient: Robert Motnes 55 y/o M admitted on 12/09/20 for wound on right foot. Chief Complaint: [ I saw patient for post operative check up in room 125. He is currently undergoing scheduled hemodialysis uneventfully. Dressings of RIGHT foot and leg are dry. Exposed toe tips are pink and warm. ] Constitutional Vitals: Vital Signs Temp Pulse Resp BP Pulse Ox 97.7 F 80 20 134/70 97 12/10/20 14:10 12/10/20 17:37 12/10/20 13:00 12/10/20 17:37 12/10/20 13:00 Period Temp Pulse Resp BP Sys/Jesus Pulse Ox Last 24 Hr 97.7 F-99.0 F 80-93 18-28 93-177/54-96 97-98 Intake and Output 12/10/20 12/10/20 12/10/20 05:59 13:59 21:59 Intake Total 504 104 360 Balance 504 104 360 Weight 263 lb 6.4 oz Patient Weight 12/11/20 05:59 Weight 263 lb 6.4 oz Intake & Output: Intake & Output 12/10/20 12/10/20 12/10/20 05:59 13:59 21:59 Intake Total 504 104 360 Balance 504 104 360 Weight 263 lb 6.4 oz Intake: IV 104 104 Cleocin 600 mg In Dextrose 5% 54 54 in Water 50 ml @ 100 mls/hr IV Q8H [facility] Rx#:[id number] Zosyn 2.25 gm In Dextrose 5% in 50 50 Water 50 ml @ 100 mls/hr IV Q8H [facility] Rx#:[id number] Oral 400 360 General appearance: cooperative and no acute distress Exam: Resting comfortably. Undergoing scheduled hemodialysis. Dressings RIGHT foot, ankle and leg are clean and dry. Exposed tip of toes warm and dry. A/P Narrative A/P Narrative: Assessment: Satisfactory post operative progress at this time. This patient has severe PAD and has undergone prior IR treatment with Angioplasty and stent placement. 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 He is at high risk for further complications and will need close monitoring and adjuvant HBOT along with local wound care. I will speak with Dr. julian SIMMONS, Interventional Radiologist for reassessing this patient in near future to see if he needs further intervention. Plan: I will order HBOT to begin as expeditiously and as early as possible to optimize his chances of wound healing AND Extremity salvage and rehabilitation. I have discussed this plan with HBO team and Monitoring Engineer. Will speak with any insurance medical personnel as well. Time Spent With Patient Time: Total time spent is greater than 50% in coordination of care (as documented) at patient's floor/unit and/or counseling patient: Total time spent with greater than 50% in coordination of care (as documented) at patient's floor/unit and/or counseling patient:: Greater than 35 minutes
[2020-12-10] MEDS: GABAPENTIN 300 MG CAPSULE PO SCH (18:53)
[2020-12-10] MEDS: DOXAZOSIN 4 MG TABLET PO SCH (22:29)
[2020-12-10] MEDS: AMITRIPTYLINE 25 MG TABLET PO SCH (22:29)
[2020-12-10] MEDS: ATORVASTATIN 10 MG TABLET PO SCH (22:29)
[2020-12-10 23:37] LABS: Vancomycin,Random 8.4 ug/mL
[2020-12-11] MEDS: 0.9 % SODIUM CHLORIDE 10 ML SYRINGE IV SCH ×3 (05:36→22:27)
[2020-12-11] MEDS: PIPERACILLIN SODIUM/TAZOBACTAM 2.25 GM in DEXTROSE 5% IN WATER 50 ML IV SCH ×3 (05:36→22:27)
[2020-12-11] MEDS: CLINDAMYCIN 600 MG in DEXTROSE 5% IN WATER 50 ML IV SCH (06:02)
[2020-12-11] MEDS ORDERED: VANCOMYCIN 1,500 MG in 0.9 % SODIUM CHLORIDE 500 ML IV ONE (06:15)
[2020-12-11 06:29] LABS: Basophils # (Auto) 0.03 K/mcL (0.00-0.20); Basophils % (Auto) 0.4 % (0.0-2.0); Eosinophils # (Auto) 0.29 K/mcL (0.00-0.70); Eosinophils % (Auto) 3.4 % (0.0-7.0); Hematocrit 25.5 % (41.0-55.0); Hemoglobin 8.1 g/dL (13.5-16.5); Lymphocytes # (Auto) 0.53 K/mcL (1.50-4.80); Lymphocytes % (Auto) 6.3 % (15.0-49.0); Mean Cell Volume 93.8 fL (80.0-100.0); Mean Corpuscular HGB Conc 31.8 g/dL (31.0-36.0); Monocytes % (Auto) 9.5 % (1.0-12.0); Neutrophils % (Auto) 80.4 % (38.0-78.0); Platelet Count 349 K/mcL (140-440); RBC 2.72 M/mcL (4.50-5.90); Red Cell Distribution Width 14.5 % (11.5-14.5); WBC 8.4 K/mcL (4.5-11.0)
[2020-12-11 06:53] LABS: ALT/SGPT 13 U/L (<40); AST/SGOT 17 U/L (<40); Albumin 2.4 gm/dL (3.2-5.2); Albumin/Globulin Ratio 0.6 (1.0-2.3); Alkaline Phosphatase 102 U/L (39-117); Bilirubin,Direct 0.2 mg/dL (<0.3); Bilirubin,Total 0.4 mg/dL (0.1-1.0); Blood Urea Nitrogen 28 mg/dL (6-20); Calcium 9.1 mg/dL (8.6-10.4); Carbon Dioxide 27 mmol/L (22-30); Chloride 92 mmol/L (96-108); Globulin 3.7 gm/dL (2.2-3.7); Glomerular Filtration Rate 18; Glucose 194 mg/dL (70-105); Lactate Dehydrogenase 114 U/L (135-225); Phosphorous 4.5 mg/dL (2.5-4.5); Triglycerides 122 mg/dL (<150); Uric Acid 3.4 mg/dL (2.5-8.0)
[2020-12-11] MEDS: CALCIUM ACETATE 667 MG CAPSULE PO SCH ×3 (07:38→16:16)
[2020-12-11] MEDS: INSULIN LISPRO 1 UNIT/0.01 ML UNIT SQ SCH ×4 (07:42→21:15)
--- NOTE | 2020-12-11 07:42 | Operative Note ---
DATE OF OPERATION: 12/10/2020 PREOPERATIVE DIAGNOSES: 1. Sepsis syndrome. 2. Complicated skin and skin structure infection, skin necrosis, and dry gas gangrene, right medial lower leg and lateral toes. POSTOPERATIVE DIAGNOSES: 1. Sepsis syndrome. 2. Complicated skin and skin structure infection, skin necrosis, and dry gas gangrene, right medial lower leg and lateral toes. PROCEDURE: 1. Excision, debridement of wounds. 2. Pulse lavage irrigation. 3. Tissue for culture and biopsies. ANESTHESIA: Conscious sedation. INDICATIONS: The patient with diabetes and peripheral neuropathy is insensate for the lower two-thirds of his right leg. Findings, see photographs. Right lower leg wound: 15 x 11 x 2 cm. Right foot wound between the first and second toes: 3.5 x2 x 1.5 cm, between the second and third toes 3.5 x 2 x 1.5 cm, between third and fourth toes 2 x 1.5 x 1 cm. All these wounds are stage IV wound with the wound bed containing exposed tendon muscles and synovial tissue. ESTIMATED BLOOD LOSS: 10 mL. INSTRUMENT COUNT: Count of swabs, instruments and needles was reported to be correct. PROCEDURE IN DETAIL: After obtaining informed consent and discussion of this patient's problems with the treating physicians and anesthesiologist, patient was taken to the operating room. He was placed supine on the bed. Intravenous analgesia was given by Mechanical Facilities Technician, Jennifer Wilkinson CRNA. After hemodynamic monitoring and pulse oxygen saturation checked, the patient was prepped and draped in the standard fashion after taking preoperative photographs. First, using a sharp tooth pickup and Metzenbaum scissors and later #15 scalpel blade, necrotic tissue between the toes was sharply excised and the blisters in the interdigital spaces were opened. Sharp debridement was carried out with a #7 curette until all the necrotic debris was excised. This has left exposed tendons at the wound base and covering the bone surfaces. There was scant bleeding noted after debridement from the wound bases. Gloves were changed. Attention was turned to the main wound along the right lower medial leg and ankle areas. Using a rat tooth pickup and 15 scalpel blade, incision was made between the viable and nonviable areas of the wound margin. A plane of dissection was developed and explored and created further with finger dissection. It was possible to lift the necrotic skin off the wound base. Careful tangential excision of the entire necrotic tissue was carried out. Completion photograph was taken. We were now left with a wound bed with exposed Achilles tendon, soft tissue musculature and the synovial tissue covering the ankle joint and the proximal foot. We proceeded to thoroughly debride this wound using sharp #5 curette. Wound was irrigated with 3 liters of normal saline using pulse lavage irrigation, followed by clearing devitalized debris. The second bag of irrigation consisted of 3 liters of normal saline mixed with 800 mg of gentamicin. Completion photographs were taken. There was some scant bleeding noted along the wound bed and margins towards completion of the debridement. This patient has a background of severe peripheral arterial disease and has undergone prior interventional radiology treatment and stent placements. We will seek consultation from Dr. Sal Landry to reevaluate the leg at this time and see if any further improvement can be carried out to improve circulation. Additionally, this is a diabetic foot ulcer, status post debridement of gangrenous tissue. This patient will benefit from adjuvant hyperbaric oxygen therapy in the near term while the wound care will continue simultaneously, and interventional radiology workup will be undertaken at a later date. Procedure was well tolerated. VD:trae Job ID: [id number] Doc ID: [id number] MD KECIA Panda
[2020-12-11] MEDS: SEVELAMER 800 MG TABLET PO SCH ×3 (07:43→16:18)
--- NOTE | 2020-12-11 07:48 | Nephrology Progress Note ---
SUBJECTIVE Subjective Patient information: Note initiated : 12/11/20 at 7:42 am Patient: Robert Montes 55 y/o M admitted on 12/09/20 for wound on right foot. Chief Complaint: Right foot wound Pertinent ROS: No shortness of breath No chest pain No edema Constitutional Vitals: Vital Signs Temp Pulse Resp BP Pulse Ox 100.9 F H 98 H 22 114/69 96 12/11/20 03:46 12/11/20 03:46 12/11/20 03:46 12/11/20 03:46 12/11/20 03:46 Period Temp Pulse Resp BP Sys/Jesus Pulse Ox Last 24 Hr 97.2 F-100.9 F 80-105 18-22 93-156/54-91 95-98 Intake and Output 12/10/20 12/11/20 12/11/20 21:59 05:59 13:59 Intake Total 414 524 104 Output Total 3300 Balance -2886 524 104 Weight 262 lb 8 oz Intake & Output: Intake & Output 12/10/20 12/11/20 12/11/20 21:59 05:59 13:59 Intake Total 414 524 104 Output Total 3300 Balance -2886 524 104 Weight 262 lb 8 oz Intake: IV 54 104 104 Cleocin 600 mg In Dextrose 5% 54 54 54 in Water 50 ml @ 100 mls/hr IV Q8H [facility] Rx#:[id number] Zosyn 2.25 gm In Dextrose 5% in 50 50 Water 50 ml @ 100 mls/hr IV Q8H [facility] Rx#:[id number] Oral 360 420 Output: Hemodialysis UF 3300 Other: Stool Size Copious Stool Color Brown Stool Consistency Soft # Bowel Movements 1 General appearance: cooperative and no acute distress Head Head exam: Present normal inspection Eye Eye exam: Present normal appearance ENT ENT exam: Present mucous membranes moist Respiratory Respiratory exam: Absent respiratory distress Cardiovascular Cardiovascular exam: Present normal rate and rhythm GI/Abdominal GI/Abdominal exam: Present soft; Absent tenderness Extremities Exam Extremities exam: Absent joint swelling and pedal edema Neurological Exam Neurological exam: Present alert and oriented X3 Psychiatric Psychiatric exam: Present normal affect and normal mood Skin Additional comments: Right foot wound seen during dressing change by wound care A/P Assessment and plan (1) ESRD (end stage renal disease) on dialysis: Assessment and plan: Robert Montes is a 55-year-old male with end stage renal disease on chronic hemodialysis, hypertension, hyperlipidemia and diabetes mellitus type 2 referred to the emergency room from the wound care clinic for the right foot wound on 12/09/20 and admitted. The wound appears to be infected and likely needs surgical debridement. End stage renal disease on chronic hemodialysis. Chronic anemia due to ESRD on Aranesp 60 mcg IV weekly on Wednesdays at the dialysis unit. Hyponatremia associated with ESRD. Progress: Right lower leg gangrene s/p excision debridement, pulse lavage irrigation, cultures and biopsies on 12/10/20. HBOT being scheduled. May need intervention for peripheral arterial disease at [facility]. Hemodialysis with 3,300 ml UF on 12/10/20. Plan: Hemodialysis for 4.5 hours on Tuesday. Aranesp 100 mcg SC x 1 today. Antibiotic dosing for ESRD on hemodialysis. Status: Chronic (2) Hyponatremia: Status: Chronic (3) Anemia due to end stage renal disease: Status: Chronic Time Spent With Patient Time: Total time spent is greater than 50% in coordination of care (as documented) at patient's floor/unit and/or counseling patient:
--- NOTE | 2020-12-11 07:58 | Internal Med Progress Note ---
SUBJECTIVE Subjective Patient information: Note initiated : 12/11/20 at 7:53 am Service Date, if different from initiated Date: [] Patient: Robert Montes a 55 y/o M admitted on 12/09/20 for wound on right foot. Chief Complaint: [] Interval history: History of present illness: Mr. Montes is a 55 year old M Presents to the ED sent in by Dr. Jay at the wound care clinic for a right foot nonhealing wound that appears to be infected at this point and likely needs surgical debridement per Dr. Dominguez. Patient reports increased redness and also drainage which she describes as brown. Denies fevers but positive for chills. 12/10 No overnight event or new complaints. Patient for surgical debridement today. 12/11 Patient had debridement yesterday with no complications. Patient arterial ultrasound of the lower extremities which showed significant stenosis bilaterally. Letter new complaints. Patient home Levemir is listed as 40 units twice daily but says he takes only 30 twice daily. Review of Systems: denies headache/fever/chills/nausea/vomiting/chest or abdominal pain/cough/dyspnea/diarrhea. Otherwise see above. Constitutional Vitals: Vital Signs Temp Pulse Resp BP Pulse Ox 98.6 F 95 H 16 138/77 96 12/11/20 07:42 12/11/20 07:42 12/11/20 07:42 12/11/20 07:42 12/11/20 07:42 Period Temp Pulse Resp BP Sys/Jesus Pulse Ox Last 24 Hr 97.2 F-100.9 F 80-105 16-22 93-156/54-91 95-98 Intake and Output 12/10/20 12/11/20 12/11/20 21:59 05:59 13:59 Intake Total 414 524 104 Output Total 3300 Balance -2886 524 104 Weight 119.068 kg Intake & Output: Intake & Output 12/10/20 12/11/20 12/11/20 21:59 05:59 13:59 Intake Total 414 524 104 Output Total 3300 Balance -2886 524 104 Weight 119.068 kg Intake: IV 54 104 104 Cleocin 600 mg In Dextrose 5% 54 54 54 in Water 50 ml @ 100 mls/hr IV Q8H [facility] Rx#:[id number] Zosyn 2.25 gm In Dextrose 5% in 50 50 Water 50 ml @ 100 mls/hr IV Q8H [facility] Rx#:[id number] Oral 360 420 Output: Hemodialysis UF 3300 Other: Stool Size Copious Stool Color Brown Stool Consistency Soft # Bowel Movements 1 Exam: General: Alert, Awake, No acute Distress Eyes/N/T: EOMI, Head/Neck: neck supple, CV: RRR, 2/6 SM Pulm: Clear b/l, no wheezing/rhonchi/rales Abd: soft, nontender, +BS x4 Ext: no clubbing/cyanosis/edema to LLE. RLE in dressings Neuro: Alert, no focal deficits, moves all extremities, Skin: warm/dry OBJ DATA Labs CBC & Chem 7: 12/11/20 05:31 12/11/20 05:31 Labs: Abnormal Lab Results 12/11/20 12/11/20 12/10/20 05:31 05:31 05:24 WBC RBC 2.72 L Hgb 8.1 L Hct 25.5 L Plt Count Neut % (Auto) 80.4 H Lymph % (Auto) 6.3 L Lymph # (Auto) 0.53 L [place] # (Auto) Absolute Neutrophils ESR POC PT POC INR Sodium 129 L Chloride 92 L BUN 28 H Creatinine 3.6 H Glucose 194 H Hemoglobin A1c 9.0 H Calcium Phosphorus Alkaline Phosphatase Lactate Dehydrogenase 114 L C-Reactive Protein Albumin 2.4 L Albumin/Globulin Ratio 0.6 L 12/10/20 12/10/20 12/09/20 05:24 05:24 14:30 WBC 12.7 H RBC 2.92 L Hgb 8.7 L Hct 26.7 L Plt Count Neut % (Auto) 83.2 H Lymph % (Auto) 6.6 L Lymph # (Auto) 0.83 L [place] # (Auto) 0.99 H Absolute Neutrophils 10.55 H ESR POC PT POC INR Sodium 129 L Chloride 88 L BUN 53 H Creatinine 4.9 H Glucose 67 L Hemoglobin A1c Calcium Phosphorus 7.6 H* Alkaline Phosphatase Lactate Dehydrogenase 131 L C-Reactive Protein 6.40 H Albumin 2.9 L Albumin/Globulin Ratio 0.9 L 12/09/20 12/09/20 12/09/20 14:30 14:30 14:08 WBC RBC Hgb Hct Plt Count Neut % (Auto) Lymph % (Auto) Lymph # (Auto) [place] # (Auto) Absolute Neutrophils ESR 116 H POC PT 14.9 H POC INR 1.3 H Sodium 131 L Chloride 88 L BUN 41 H Creatinine 4.1 H Glucose Hemoglobin A1c Calcium 10.5 H Phosphorus Alkaline Phosphatase 120 H Lactate Dehydrogenase C-Reactive Protein Albumin Albumin/Globulin Ratio 0.9 L 12/09/20 14:08 WBC RBC 3.47 L Hgb 10.3 L Hct 32.0 L Plt Count 454 H Neut % (Auto) 79.4 H Lymph % (Auto) 8.1 L Lymph # (Auto) 0.89 L [place] # (Auto) 1.15 H Absolute Neutrophils 8.77 H ESR POC PT POC INR Sodium Chloride BUN Creatinine Glucose Hemoglobin A1c Calcium Phosphorus Alkaline Phosphatase Lactate Dehydrogenase C-Reactive Protein Albumin Albumin/Globulin Ratio Meds: Medications Acetaminophen (Tylenol) 650 mg PO Q6HP PRN PRN Reason: PAIN/FEVER > 101 Albuterol/Ipratropium (Duoneb) 3 ml NEB Q4HP PRN PRN Reason: Shortness Of Breath Amitriptyline HCl (Elavil) 25 mg PO QHS [facility] Last Admin: 12/10/20 22:29 Dose: 25 mg Documented by: Amlodipine Besylate (Norvasc) 10 mg PO QDAY [facility] Last Admin: 12/10/20 09:41 Dose: Not Given Documented by: Artificial Tears (Refresh Celluvisc) 1 each OU QIDP PRN PRN Reason: Dry Eyes Aspirin (Aspirin) 81 mg PO QDAY [facility] Last Admin: 12/10/20 09:33 Dose: Not Given Documented by: Atorvastatin Calcium (Lipitor) 10 mg PO [facility] Last Admin: 12/10/20 22:29 Dose: 10 mg Documented by: Calcitriol (Rocaltrol) 0.25 mcg PO MoWeFr@0900 [facility] Last Admin: 12/10/20 09:42 Dose: Not Given Documented by: Calcium Acetate (Phoslo) 2,001 mg PO TIDPC [facility] Last Admin: 12/11/20 07:38 Dose: Not Given Documented by: Clonidine HCl (Catapres Tts 2) 1 patch TD Sa@0900 [facility] Clonidine HCl (Catapres) 0.1 mg PO ONCE PRN PRN Reason: Blood Pressure Clopidogrel Bisulfate (Plavix) 75 mg PO QDAY [facility] Last Admin: 12/10/20 09:41 Dose: Not Given Documented by: Dextrose (Dextrose 50%) 0 ml IV UD PRN PRN Reason: Hypoglycemia Last Admin: 12/10/20 10:26 Dose: 25 ml Documented by: Diagnostic Test (Pha) (Accu-Chek) 1 each FS ACHS [facility] Last Admin: 12/11/20 07:35 Dose: 1 each Documented by: Docusate Sodium (Colace) 100 mg PO BID [facility] Last Admin: 12/10/20 22:29 Dose: 100 mg Documented by: Doxazosin Mesylate (Cardura) 4 mg PO QHS [facility] Last Admin: 12/10/20 22:29 Dose: 4 mg Documented by: Gabapentin (Neurontin) 600 mg PO MoWeFr@1600 [facility] Last Admin: 12/10/20 18:53 Dose: 600 mg Documented by: Glucose (Insta-Glucose) 15 gm PO PRN PRN PRN Reason: Hypoglycemia Heparin Sodium (Porcine) (Heparin) 5,000 unit SQ Q12 [facility] Last Admin: 12/10/20 22:31 Dose: 5,000 unit Documented by: Hydroxyzine HCl (Vistaril) 10 mg PO ONCE PRN PRN Reason: Itching Potassium Chloride 40 meq/ (Dextrose) 520 mls @ 130 mls/hr IV UD PRN PRN Reason: Potassium < 3 Magnesium Sulfate (Magnesium Sulfate) 2 gm in 50 mls @ 50 mls/hr IV UD PRN PRN Reason: Magnesium </= 1.6 Clindamycin Phosphate 600 mg/ (Dextrose) 54 mls @ 100 mls/hr IV Q8H [facility]; Protocol Stop: 12/11/20 08:00 Last Infusion: 12/11/20 06:35 Dose: Infused Documented by: Piperacillin Sod/Tazobactam (Sod 2.25 gm/ Dextrose) 50 mls @ 100 mls/hr IV Q8H [facility] Last Infusion: 12/11/20 06:06 Dose: Infused Documented by: Insulin Glargine (Lantus) 10 unit SQ BID [facility] Last Admin: 12/10/20 22:32 Dose: 10 units Documented by: Insulin Human Lispro (Humalog) 0 unit SQ [facility]; Protocol Last Admin: 12/11/20 07:42 Dose: 4 units Documented by: Lactulose (Cephulac) 20 gm PO DAILYP PRN PRN Reason: Constipation Lisinopril (Zestril) 40 mg PO BID [facility] Last Admin: 12/10/20 22:29 Dose: 40 mg Documented by: Ondansetron HCl (Zofran) 4 mg IV Q4HP PRN PRN Reason: Nausea And Vomiting Polyethylene Glycol (Miralax) 17 gm PO DAILYP PRN PRN Reason: Constipation Potassium Chloride (Kdur) 40 meq PO UD PRN PRN Reason: Potssium is 3-3.5 Potassium Chloride (Kdur) 40 meq PO UD PRN PRN Reason: Potassium < 3 Senna (Senokot) 2 tab PO DAILYP PRN PRN Reason: Constipation Sevelamer Carbonate (Renvela) 2,400 mg PO TIDAC [facility] Last Admin: 12/11/20 07:43 Dose: 2,400 mg Documented by: Sodium Chloride (Saline Flush) 10 ml IV Q8 [facility] Last Admin: 12/11/20 05:36 Dose: 10 ml Documented by: Vancomycin HCl (Vancomycin Per Pharmacy) 1 order IV UD [facility]; Protocol Vitamin B Complex (Vitamin B Complex) 1 cap PO QDAY [facility] Last Admin: 12/10/20 09:42 Dose: Not Given Documented by: A/P Narrative A/P Narrative: A: *Right foot non-healing diabetic wound infection w/subcutaneous necrosis/gas: *DM w/neuropathy: A1c 9.0 *ESRD: Follows with Dr. Joe *Anemia, chronic *PVD: on ASA/Plavix/statin, RLE stenting [place] [address] Frantz barron u/s with b/l LE stenosis *HTN/HLD: *Hyponatremia, chronic: P: -deescalate to zosyn only -pending final BC/WC, mrsa pcr neg -Dr. Jay following; f/u with Dr. Landry -wound care -Dr. White has seen, pt likely will be on zosyn for ongoing IV therapy -HD/electrolytes per nephrology -Continue home Norvasc/clonidine/lisinopril -Continue ASA/Plavix/statin -home Basal is 40bid (decreased to 10bid while diet in flux and low BG) and SSI. -PT/OT -ppx: Heparin full Code Time Spent With Patient Time: Total time spent is greater than 50% in coordination of care (as documented) at patient's floor/unit and/or counseling patient: QUALITY VTE Deep Vein Thrombosis/Pulmonary Embolism Present on Admission: No
[2020-12-11] MEDS: LISINOPRIL 20 MG TABLET PO SCH ×2 (08:24→21:23)
[2020-12-11] MEDS: VITAMIN B COMPLEX 1 CAPSULE PO SCH (08:25)
[2020-12-11] MEDS: CLOPIDOGREL 75 MG TABLET PO SCH (08:25)
[2020-12-11] MEDS: ASPIRIN 81 MG TAB.CHEW PO SCH (08:25)
[2020-12-11] MEDS: amLODIPine 10 MG TABLET PO SCH (08:25)
[2020-12-11] MEDS: DOCUSATE SODIUM 100 MG CAPSULE PO SCH ×2 (08:26→21:23)
[2020-12-11] MEDS: HEPARIN 5,000 UNIT/ML VIAL SQ SCH ×2 (08:28→21:23)
[2020-12-11] MEDS: INSULIN GLARGINE, HUMAN 1 UNIT/0.01 ML SQ SCH ×2 (08:33→21:15)
[2020-12-11] MEDS ORDERED: DARBEPOETIN ALFA 100 MCG/ML VIAL SQ ONE (10:00)
--- NOTE | 2020-12-11 12:00 | Surgical Pathology Report ---
Histology Microscopic Diagnosis Specimen A- SOFT TISSUE, RIGHT FIFTH TOE, BIOPSY: --- ISCHEMIC/NON-VIABLE FIBROADIPOSE TISSUE. --- NO MALIGNANCY IDENTIFIED. (DMT:sln) Procedural Impression Right fifth toe necrosis; right lower leg wound. Gross Description Received in formalin designated as right fifth toe necrosis, are two dusky long-ramey pieces of tissue. They are 1.3 x 1 x 0.3 cm and 1.6 x 0.8 x 0.5 cm. The margins are inked black. Sectioned, totally submitted in one cassette. Microscopic Diagnosis Specimen B- SOFT TISSUE, RIGHT LOWER LEG WOUND, EXCISION: --- ISCHEMIC/NON-VIABLE FIBROADIPOSE TISSUE WITH ASSOCIATED ACUTE AND CHRONIC INFLAMMATION AND FOCAL CALCIFICATION. --- NO MALIGNANCY IDENTIFIED. Gross Description Received in formalin designated as right lower leg wound, is a purple long dusky L-shaped piece of tissue. The long arm is 12.5 cm, the short arm is 10 cm and is up to 0.8 cm thick. The margin is inked black. Lumber Scaler sections submitted in one cassette. (SCB:adj) Electronically Signed Peña Sharpe MD, FCAP Electronically Signed 12/11/2020 11:58
--- NOTE | 2020-12-11 14:47 | General Surgery Progress Note ---
SUBJECTIVE Subjective Patient information: Note initiated : 12/11/20 at 2:43 pm Service Date, if different from initiated Date: [] Patient: Robert Montes 55 y/o M admitted on 12/09/20 for wound on right foot. Chief Complaint: [] Additional PMFSH (Level 3 Only): Patient had an uneventful night after hemodialysis yesterday. Dressings were taken down, examined his post surgical wound before he was given MIST treatment. Constitutional Vitals: Vital Signs Temp Pulse Resp BP Pulse Ox 100.1 F H 96 H 20 127/73 98 12/11/20 12:59 12/11/20 12:59 12/11/20 12:59 12/11/20 12:59 12/11/20 12:59 Period Temp Pulse Resp BP Sys/Jesus Pulse Ox Last 24 Hr 97.2 F-100.9 F 80-105 16-22 93-156/54-91 95-98 Intake and Output 12/11/20 12/11/20 12/11/20 05:59 13:59 21:59 Intake Total 524 1084 Balance 524 1084 Weight 262 lb 8 oz Intake & Output: Intake & Output 12/11/20 12/11/20 12/11/20 05:59 13:59 21:59 Intake Total 524 1084 Balance 524 1084 Weight 262 lb 8 oz Intake: IV 104 604 Cleocin 600 mg In Dextrose 5% 54 54 in Water 50 ml @ 100 mls/hr IV Q8H [facility] Rx#:[id number] Zosyn 2.25 gm In Dextrose 5% in 50 50 Water 50 ml @ 100 mls/hr IV Q8H [facility] Rx#:[id number] Vancomycin 1,500 mg In Sodium 500 Chloride 0.9% 500 ml @ 333.3 mls/hr IV ONCE ONE Rx#: [id number] Oral 420 480 Other: Meal Lunch Percent of Meal Consumed 75% Feeding Ability Independent Stool Size Copious Stool Color Brown Stool Consistency Soft # Bowel Movements 1 General appearance: cooperative and no acute distress Exam: T Max 100 F Hemodynamically stable. Chest CTA. Soft abdomen. BS + , Ate BF L/E: wound base with patchy areas of slough. See photograph. Debrided toe tips are discolored. NO odor and NO purulence. Intra Operative culture pending. Lab results reviewed. I spoke with Dr. Sal SIMMONS. Reviewed PAD findings. He has on vessel Posterior Tibial patency Right leg. To be evaluated / treated for PAD further. A/P Narrative A/P Narrative: Assessment: Gas Gangrene, Skin Necrosis Right foot toes and lower leg. PAD with h/o stent in past. S/P Surgical debridement and biopsies / cultures. Critical Limb Ischemia with infection Right foot and leg. DEBRIDED. Plan: Patient now needs close monitoring, MIST treatments and adjuvant HBOT for limb salvage Will monitor closely. FOR HBOT today. Time Spent With Patient Time: Total time spent is greater than 50% in coordination of care (as documented) at patient's floor/unit and/or counseling patient: Total time spent with greater than 50% in coordination of care (as documented) at patient's floor/unit and/or counseling patient:: Greater than 35 minutes
--- NOTE | 2020-12-11 15:28 | General Surgery Progress Note ---
SUBJECTIVE Subjective Patient information: Note initiated : 12/11/20 at 3:27 pm Service Date, if different from initiated Date: [] Patient: Robert Montes 55 y/o M admitted on 12/09/20 for wound on right foot. Chief Complaint: [] Constitutional Vitals: Vital Signs Temp Pulse Resp BP Pulse Ox 100.1 F H 96 H 20 127/73 98 12/11/20 12:59 12/11/20 12:59 12/11/20 12:59 12/11/20 12:59 12/11/20 12:59 Period Temp Pulse Resp BP Sys/Jesus Pulse Ox Last 24 Hr 97.2 F-100.9 F 80-105 16-22 94-156/55-91 95-98 Intake and Output 12/11/20 12/11/20 12/11/20 05:59 13:59 21:59 Intake Total 524 1084 Balance 524 1084 Weight 262 lb 8 oz Intake & Output: Intake & Output 12/11/20 12/11/20 12/11/20 05:59 13:59 21:59 Intake Total 524 1084 Balance 524 1084 Weight 262 lb 8 oz Intake: IV 104 604 Cleocin 600 mg In Dextrose 5% 54 54 in Water 50 ml @ 100 mls/hr IV Q8H [facility] Rx#:[id number] Zosyn 2.25 gm In Dextrose 5% in 50 50 Water 50 ml @ 100 mls/hr IV Q8H [facility] Rx#:[id number] Vancomycin 1,500 mg In Sodium 500 Chloride 0.9% 500 ml @ 333.3 mls/hr IV ONCE ONE Rx#: [id number] Oral 420 480 Other: Meal Lunch Percent of Meal Consumed 75% Feeding Ability Independent Stool Size Copious Stool Color Brown Stool Consistency Soft # Bowel Movements 1 A/P Time Spent With Patient Time: Total time spent is greater than 50% in coordination of care (as documented) at patient's floor/unit and/or counseling patient:
[2020-12-11] MEDS: ACETAMINOPHEN 325 MG TABLET PO PRN (17:06)
[2020-12-11] MEDS: AMITRIPTYLINE 25 MG TABLET PO SCH (21:23)
[2020-12-11] MEDS: ATORVASTATIN 10 MG TABLET PO SCH (21:23)
[2020-12-11] MEDS: DOXAZOSIN 4 MG TABLET PO SCH (21:24)
[2020-12-12] MEDS: 0.9 % SODIUM CHLORIDE 10 ML SYRINGE IV SCH ×3 (05:54→21:49)
[2020-12-12] MEDS: PIPERACILLIN SODIUM/TAZOBACTAM 2.25 GM in DEXTROSE 5% IN WATER 50 ML IV SCH ×3 (05:54→21:49)
--- NOTE | 2020-12-12 06:15 | Nephrology Progress Note ---
SUBJECTIVE Subjective Patient information: Note initiated : 12/12/20 at 6:14 am Patient: Robert Montes 55 y/o M admitted on 12/09/20 for wound on right foot. Chief Complaint: Right foot wound Pertinent ROS: No shortness of breath No chest pain No edema Constitutional Vitals: Vital Signs Temp Pulse Resp BP Pulse Ox 98.5 F 102 H 20 157/90 94 12/12/20 04:00 12/12/20 04:00 12/12/20 04:00 12/12/20 04:00 12/12/20 04:00 Period Temp Pulse Resp BP Sys/Jesus Pulse Ox Last 24 Hr 98.4 F-100.3 F 94-105 16-20 121-157/53-90 93-98 Intake and Output 12/11/20 12/12/20 12/12/20 21:59 05:59 13:59 Intake Total 530 100 Balance 530 100 Weight 269 lb 4.8 oz Intake & Output: Intake & Output 12/11/20 12/12/20 12/12/20 21:59 05:59 13:59 Intake Total 530 100 Balance 530 100 Weight 269 lb 4.8 oz Intake: IV 50 50 Zosyn 2.25 gm In Dextrose 5% in 50 50 Water 50 ml @ 100 mls/hr IV Q8H [facility] Rx#:[id number] Oral 480 50 General appearance: cooperative and no acute distress Head Head exam: Present normal inspection Eye Eye exam: Present normal appearance ENT ENT exam: Present mucous membranes moist Respiratory Respiratory exam: Absent respiratory distress Cardiovascular Cardiovascular exam: Present normal rate and rhythm GI/Abdominal GI/Abdominal exam: Present soft; Absent tenderness Extremities Exam Extremities exam: Absent joint swelling and pedal edema Neurological Exam Neurological exam: Present alert and oriented X3 Psychiatric Psychiatric exam: Present normal affect and normal mood Skin Skin exam: Present warm; Absent rash Additional comments: Right foot wound seen during dressing change. A/P Assessment and plan (1) ESRD (end stage renal disease) on dialysis: Assessment and plan: Robert Montes is a 55-year-old male with end stage renal disease on chronic hemodialysis, hypertension, hyperlipidemia and diabetes mellitus type 2 referred to the emergency room from the wound care clinic for the right foot wound on 12/09/20 and admitted. The wound appears to be infected and likely needs surgical debridement. End stage renal disease on chronic hemodialysis. Chronic anemia due to ESRD on Aranesp 60 mcg IV weekly on Wednesdays at the dialysis unit. Hyponatremia associated with ESRD. Progress: Right lower leg gangrene s/p excision debridement, pulse lavage irrigation, cultures and biopsies on 12/10/20. HBOT. May need intervention for peripheral arterial disease at [facility]. Hemodialysis with 3,300 ml UF on 12/10/20. Aranesp 100 mcg SC x 1 on 11/10/21. Plan: Hemodialysis for 4.5 hours today then continue outpatient schedule of Tuesday, Tuesday and Tuesday. Antibiotic dosing for ESRD on hemodialysis. Status: Chronic (2) Hyponatremia: Status: Chronic (3) Anemia due to end stage renal disease: Status: Chronic Time Spent With Patient Time: Total time spent is greater than 50% in coordination of care (as documented) at patient's floor/unit and/or counseling patient:
[2020-12-12] MEDS: CALCIUM ACETATE 667 MG CAPSULE PO SCH ×3 (06:38→16:23)
[2020-12-12] MEDS: INSULIN LISPRO 1 UNIT/0.01 ML UNIT SQ SCH ×4 (06:38→19:59)
[2020-12-12] MEDS: SEVELAMER 800 MG TABLET PO SCH ×3 (06:39→17:26)
--- NOTE | 2020-12-12 06:57 | Infectious Disease Consult ---
HPI Data of Consult Primary Care Provider: Violet Silva Consult Narrative Patient Information: Note initiated : 12/12/20 at 6:51 am Service Date, if different from initiated Date: [] Patient: Robert Montes a 55 y/o M admitted on 12/09/20 for wound on right foot. Chief Complaint: [] Robert is postop day 1 right foot debridement for necrotizing infection. He is currently day for IV antibiotics. He was initially started on Zosyn Vanco and clindamycin. He remains on Zosyn 2.25 g 3 times daily at this time. He denies right foot pain. He does report some mild chills. He is due for dialysis today. cc:: CC: José Yost [facility] All Active Problems (Updated 12/09/20 @ 17:48 by Peña White MD) Anemia due to end stage renal disease (Chronic) Diabetic foot ulcer (Acute) Chronic kidney disease, stage V requiring chronic dialysis (Acute) Necrotizing soft tissue infection (Acute) Necrotic toes (Acute) Depressed (Acute) SOB (shortness of breath) (Acute) Accelerated essential hypertension (Acute) Neuropathy associated with endocrine disorder (Acute) Diabetes mellitus with ESRD (end-stage renal disease) (Acute) Proliferative diabetic retinopathy (Chronic) Degenerative joint disease (Chronic) Periodontal disease (Chronic) Hypercholesterolemia (Chronic) Arthritis (Chronic) Anemia (Chronic) Non healing left heel wound (Chronic) Hyponatremia (Chronic) Sepsis (Acute) Hypertension (Acute) Peripheral arterial disease (Chronic) USP (current) use of anticoagulants (Chronic) Secondary diabetes mellitus with hypertension and end stage renal disease on dialysis (Chronic) Type 2 diabetes, uncontrolled, with neuropathy (Chronic) ESRD (end stage renal disease) on dialysis (Chronic) Hypertension (Chronic) Hyperlipidemia (Chronic) Obesity (BMI 30.0-34.9) (Chronic) Cellulitis of heel, left (Chronic) Diabetic foot ulcer (Chronic) Chronic renal failure, stage 5 (Chronic) Hyponatremia (Chronic) Recurrent cellulitis of lower leg (Chronic) Vitamin D deficiency (Chronic) Obesity, morbid (more than 100 lbs over ideal weight or BMI > 40) (Chronic) Hyperparathyroidism, secondary (Chronic) Medical History (Updated 12/09/20 @ 17:48 by Peña White MD) Abscess of skin or subcutaneous tissue (Resolved) Anemia (Chronic) Arthritis (Chronic) Cellulitis of heel, left (Chronic) Ugent need of incision and drainage left heel Chronic renal failure, stage 5 (Chronic) Degenerative joint disease (Chronic) Diabetic foot ulcer (Chronic) treated with surgery, abx, hbo and skin graft ESRD (end stage renal disease) on dialysis (Chronic) History of folliculitis (Chronic) associated inguinal infection requiring incision and drainage Hypercholesterolemia (Chronic) Hyperglycemia (Resolved) Hyperkalemia (Resolved) Hyperlipidemia (Chronic) Hyperparathyroidism, secondary (Chronic) Hypertension (Chronic) Controlled with captopril 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 Landry) Non healing left heel wound (Chronic) Obesity (BMI 30.0-34.9) (Chronic) Obesity, morbid (more than 100 lbs over ideal weight or BMI > 40) (Chronic) Periodontal disease (Chronic) Full dental extraction Peripheral arterial disease (Chronic) Previous Status post stenting, Dr. Landry. Proliferative diabetic retinopathy (Chronic) Recurrent cellulitis of lower leg (Chronic) Secondary diabetes mellitus with hypertension and end stage renal disease on dialysis (Chronic) Type 2 diabetes, uncontrolled, with neuropathy (Chronic) Well controlled when hospitalized. Left to his own devices, to much CHO intake and poor control Vitamin D deficiency (Chronic) Surgical History (Updated 12/09/20 @ 15:10 by Jah Reynoso DO) History of cataract removal with insertion of prosthetic lens (Chronic) History of surgery (Chronic) Left radiocephalic AV fistula, with subsequent thrombosis. History of surgery (Chronic) Left brachiocephalic AV fistula History of tonsillectomy and adenoidectomy (Chronic) as a child S/P peripheral artery angioplasty with stent placement (Acute) Dr. Landry Family History father Malignant neoplasm of liver Diabetes mellitus with coincident hypertension Unknown Obesity Social History (Updated 04/30/20 @ 20:49 by Luis M uCrry MD) marital status: single occupational status: disabled smoking status: Former smoker alcohol intake frequency: does not drink substance use type: does not use MEDS/ALLERGIES Home Medications and Allergies Home Medications Medication Instructions Recorded Confirmed Type aspirin 81 mg tablet,delayed 81 mg PO QDAY 09/06/18 12/09/20 History release clopidogrel 75 mg tablet 75 mg PO QDAY #30 tab 12/11/18 12/09/20 Rx B complex-vitamin C-folic acid 100 1 tab PO QDAY #30 tab 03/28/19 12/09/20 Rx mg-folic acid 1 mg tablet dextran 70-hypromellose 1 each OP QIDP PRN 11/02/19 12/09/20 History silver sulfadiazine 1 appful TOPICAL PRN PRN 11/02/19 12/09/20 History insulin detemir U-100 40 unit SQ BID 11/06/19 12/09/20 History glipizide 5 mg tablet, extended 5 mg PO QDAY #30 tab 12/21/19 12/09/20 Rx release 24 hr arginine 7 gram-glutamine 7 See Rx Instructions PO .COMPLEX 04/16/20 12/09/20 Rx gram-calcium HMB 1.5 gram oral #30 each powder pack clonidine 0.2 mg/24 hr weekly 1 patch TRANSDERMA QWEEK #4 each 06/04/20 12/09/20 Rx transdermal patch acetaminophen 325 mg tablet 650 mg PO PRN PRN 06/18/20 12/09/20 History amino ac-protein hydr-whey pro 10 1 each PO 3XW ml 06/18/20 12/09/20 History gram-100 kcal/30 mL oral liquid calcitriol 0.25 mcg capsule 0.25 mcg PO 3XW 06/18/20 12/09/20 History calcium acetate(phosphat bind) 667 2,001 mg PO .TID pc #270 cap 06/18/20 12/09/20 Rx mg capsule clonidine HCl 0.1 mg tablet 0.1 mg PO ONCE PRN tab 06/18/20 12/09/20 History etelcalcetide 5 mg/mL intravenous 10 mg IV 3XW 06/18/20 12/09/20 History solution heparin (porcine) 1,000 unit/mL 1,500 unit IV 3XW ml 06/18/20 12/09/20 History injection solution heparin (porcine) 1,000 unit/mL 2,000 unit IV Q4W ml 06/18/20 12/09/20 History injection solution heparin (porcine) 1,000 unit/mL 4,000 unit IV 3XW ml 06/18/20 12/09/20 History injection solution hydroxyzine HCl 10 mg tablet 10 mg PO ONCE PRN tab 06/18/20 12/09/20 History insulin aspart U-100 100 unit/mL 12 unit SUB-Q .BID ac ml 06/18/20 12/09/20 History subcutaneous solution lisinopril 40 mg tablet 40 mg PO BID #60 tab 06/18/20 12/09/20 Rx loperamide 2 mg capsule 4 mg PO ONCE PRN cap 06/18/20 12/09/20 History ondansetron HCl 2 mg/mL 4 mg IM ONCE PRN ml 06/18/20 12/09/20 History intravenous solution sodium ferric gluconat-sucrose 62.5 mg IV QWEEK ml 06/18/20 12/09/20 History 62.5 mg/5 mL intravenous doxazosin 2 mg tablet 4 mg PO QHS #60 tab 07/10/20 12/09/20 Rx sevelamer HCl 800 mg tablet 2,400 mg PO .tid ac #270 tab 07/10/20 12/09/20 Rx rosuvastatin 5 mg tablet 5 mg PO QPM #30 tab 07/15/20 12/09/20 Rx amlodipine 10 mg tablet 10 mg PO QDAY #30 tab 08/25/20 12/09/20 Rx gabapentin 600 mg tablet 600 mg PO .COMPLEX #30 tab 11/07/20 12/09/20 Rx amitriptyline 25 mg tablet 25 mg PO QHS #30 tab 11/11/20 12/09/20 Rx Allergies Allergy/AdvReac Type Severity Reaction Status Date / Time cephalexin Allergy Mild rash Verified 12/09/20 13:50 Physical Examination Vital Signs Vital signs: Temp Pulse Resp BP Pulse Ox 98.5 F 102 H 20 157/90 94 12/12/20 04:00 12/12/20 04:00 12/12/20 04:00 12/12/20 04:00 12/12/20 04:00 Additional Exam Additional exam: Generally: No acute distress. HEENT: Anicteric sclera. No thrush. Lungs are clear bilaterally. Heart: Regular rate and rhythm with 1/6 systolic murmur. Abdomen soft and benign. Extremities: Right foot is wrapped. I did see debrided wound photos yesterday. He does have mild erythema above the dressing up to his right mid ruvalcaba. No knee tenderness erythema or effusions. Results Laboratory Findings CBC and BMP: 12/11/20 05:31 12/11/20 05:31 Abnormal lab findings: Abnormal Labs 12/09/20 12/09/20 12/09/20 14:08 14:08 14:30 WBC RBC 3.47 L Hgb 10.3 L Hct 32.0 L Plt Count 454 H Neut % (Auto) 79.4 H Lymph % (Auto) 8.1 L Lymph # (Auto) 0.89 L [place] # (Auto) 1.15 H Absolute Neutrophils 8.77 H ESR POC PT 14.9 H POC INR 1.3 H Sodium 131 L Chloride 88 L BUN 41 H Creatinine 4.1 H Glucose Hemoglobin A1c Calcium 10.5 H Phosphorus Alkaline Phosphatase 120 H Lactate Dehydrogenase C-Reactive Protein Albumin Albumin/Globulin Ratio 0.9 L 12/09/20 12/09/20 12/10/20 14:30 14:30 05:24 WBC 12.7 H RBC 2.92 L Hgb 8.7 L Hct 26.7 L Plt Count Neut % (Auto) 83.2 H Lymph % (Auto) 6.6 L Lymph # (Auto) 0.83 L [place] # (Auto) 0.99 H Absolute Neutrophils 10.55 H ESR 116 H POC PT POC INR Sodium Chloride BUN Creatinine Glucose Hemoglobin A1c Calcium Phosphorus Alkaline Phosphatase Lactate Dehydrogenase C-Reactive Protein 6.40 H Albumin Albumin/Globulin Ratio 12/10/20 12/10/20 12/11/20 05:24 05:24 05:31 WBC RBC 2.72 L Hgb 8.1 L Hct 25.5 L Plt Count Neut % (Auto) 80.4 H Lymph % (Auto) 6.3 L Lymph # (Auto) 0.53 L [place] # (Auto) Absolute Neutrophils ESR POC PT POC INR Sodium 129 L Chloride 88 L BUN 53 H Creatinine 4.9 H Glucose 67 L Hemoglobin A1c 9.0 H Calcium Phosphorus 7.6 H* Alkaline Phosphatase Lactate Dehydrogenase 131 L C-Reactive Protein Albumin 2.9 L Albumin/Globulin Ratio 0.9 L 12/11/20 05:31 WBC RBC Hgb Hct Plt Count Neut % (Auto) Lymph % (Auto) Lymph # (Auto) [place] # (Auto) Absolute Neutrophils ESR POC PT POC INR Sodium 129 L Chloride 92 L BUN 28 H Creatinine 3.6 H Glucose 194 H Hemoglobin A1c Calcium Phosphorus Alkaline Phosphatase Lactate Dehydrogenase 114 L C-Reactive Protein Albumin 2.4 L Albumin/Globulin Ratio 0.6 L Microbiology: Microbiology 12/09/20 14:32 Blood Blood Culture - Preliminary 12/09/20 14:23 Blood Blood Culture - Preliminary 12/10/20 13:51 Toe - Fifth Anaerobic Culture - Preliminary 12/09/20 19:51 Ankle - Right Gram Stain - Preliminary 12/09/20 19:51 Ankle - Right Wound Culture - Preliminary Gram negative bacillus Gram negative bacillus#2 Gram negative bacillus#3 12/09/20 19:50 Nose - Both Right and Left MRSA (PCR) - Final At this point, cultures from December 09 have revealed 3 colony types of gram-negative leona. Follow-up on final cultures to make sure Zosyn remains appropriate. New cultures pending from yesterday. A/P Assessment and plan (1) Necrotizing soft tissue infection: Status: Acute Comment: Robert is a 55-year old diabetic with end-stage renal disease requiring dialysis Tuesday. He has had a 2-week history of wound over the right medial ankle. He describes enlarging area of wound. He denies history of trauma. He has known history of peripheral vascular disease with previous intervention. He has necrotizing infection involving the right medial ankle area with gas seen in tissue of the CT scan. Polymicrobial infection suspected. Patient has been started on IV Vanco, Zosyn, and clindamycin. Typically I do not add Clinda to Zosyn. However there can be added benefit in toxin associated group A strep, toxin associated staph aureus, and in this instance possible additional coverage for Clostridium perfringens. He has significant necrotic eschar over the right medial ankle. Surgery anticipated by Dr. Jay. He has a previous history of prolonged treatment for left calcaneal osteomyelitis 1 year ago. Although osteomyelitis has not been identified on right lower extremity, he has significant full-thickness skin loss over the right medial ankle and I expect another prolonged course of treatment. He is certainly at risk for osteomyelitis. Intraoperative cultures will be obtained. I would not expect need for clindamycin beyond 48 hours. No previous history of MRSA. He may not need vancomycin past his first dose. DePending on results of intraoperative cultures, Zosyn may be his primary antibiotic for ongoing therapy. Further recommendations to follow. Thank you very much for allowing me to be involved in his consultative care. Please call for questions. (2) Necrotic toes: Status: Acute Comment: He additionally has ulcerations between first and second toe, second and third t oe, and necrosis of the lateral aspect of both the fourth and fifth toes. (3) Chronic kidney disease, stage V requiring chronic dialysis: Status: Acute Comment: MWF (4) Diabetes mellitus with ESRD (end-stage renal disease): Status: Acute Comment: co morbid condition Narrative A/P Narrative: Robert is a 55-year-old man with diabetes, end-stage renal disease, and peripheral neuropathy. He is currently day 4 Zosyn for necrotizing infection of right lower extremity. 2 toes were also involved. He is postop day 1 debridement. So far, gram-negative leona has been identified from December 09 culture. Continue to monitor culture data. I am expecting at least 2 weeks of IV therapy. He may require oral therapy to follow. I can make further re commendations once culture data returns. Time Spent With Patient Time: Total time spent is greater than 50% in coordination of care (as documented) at patient's floor/unit and/or counseling patient:
[2020-12-12] MEDS: ASPIRIN 81 MG TAB.CHEW PO SCH (07:00)
[2020-12-12] MEDS: LISINOPRIL 20 MG TABLET PO SCH ×2 (07:00→19:59)
[2020-12-12] MEDS: VITAMIN B COMPLEX 1 CAPSULE PO SCH (07:01)
[2020-12-12] MEDS: CLOPIDOGREL 75 MG TABLET PO SCH (07:01)
[2020-12-12] MEDS: amLODIPine 10 MG TABLET PO SCH (07:01)
[2020-12-12] MEDS: DOCUSATE SODIUM 100 MG CAPSULE PO SCH ×2 (07:01→19:58)
[2020-12-12] MEDS: HEPARIN 5,000 UNIT/ML VIAL SQ SCH ×2 (07:03→19:58)
[2020-12-12] MEDS: CALCITRIOL 0.25 MCG CAPSULE PO SCH (07:03)
[2020-12-12] MEDS: INSULIN GLARGINE, HUMAN 1 UNIT/0.01 ML SQ SCH ×2 (07:04→19:59)
--- NOTE | 2020-12-12 07:31 | Internal Med Progress Note ---
SUBJECTIVE Subjective Patient information: Note initiated : 12/12/20 at 7:27 am Service Date, if different from initiated Date: [] Patient: Robert Montes a 55 y/o M admitted on 12/09/20 for wound on right foot. Chief Complaint: [] Interval history: History of present illness: Mr. Montes is a 55 year old M Presents to the ED sent in by Dr. Jay at the wound care clinic for a right foot nonhealing wound that appears to be infected at this point and likely needs surgical debridement per Dr. Dominguez. Patient reports increased redness and also drainage which she describes as brown. Denies fevers but positive for chills. 12/10 No overnight event or new complaints. Patient for surgical debridement today. 12/11 Patient had debridement yesterday with no complications. Patient arterial ultrasound of the lower extremities which showed significant stenosis bilaterally. Letter new complaints. Patient home Levemir is listed as 40 units twice daily but says he takes only 30 twice daily. 12/12 Patient seems to doing well. Had hyperbaric treatment. Review of Systems: denies headache/fever/chills/nausea/vomiting/chest or abdominal p ain/cough/dyspnea/diarrhea. Otherwise see above. Constitutional Vitals: Vital Signs Temp Pulse Resp BP Pulse Ox 98.5 F 102 H 20 157/90 94 12/12/20 04:00 12/12/20 04:00 12/12/20 04:00 12/12/20 04:00 12/12/20 04:00 Period Temp Pulse Resp BP Sys/Jesus Pulse Ox Last 24 Hr 98.4 F-100.3 F 94-105 16-20 121-157/53-90 93-98 Intake and Output 12/11/20 12/12/20 12/12/20 21:59 05:59 13:59 Intake Total 530 100 Balance 530 100 Weight 122.152 kg Intake & Output: Intake & Output 12/11/20 12/12/20 12/12/20 21:59 05:59 13:59 Intake Total 530 100 Balance 530 100 Weight 122.152 kg Intake: IV 50 50 Zosyn 2.25 gm In Dextrose 5% in 50 50 Water 50 ml @ 100 mls/hr IV Q8H [facility] Rx#:[id number] Oral 480 50 Exam: General: Alert, Awake, No acute Distress Eyes/N/T: EOMI, Head/Neck: neck supple, CV: RRR, 2/6 SM Pulm: Clear b/l, no wheezing/rhonchi/rales Abd: soft, nontender, +BS x4 Ext: no clubbing/cyanosis/edema to LLE. RLE in dressings Neuro: Alert, no focal deficits, moves all extremities, Skin: warm/dry OBJ DATA Labs CBC & Chem 7: 12/11/20 05:31 12/11/20 05:31 Labs: Abnormal Lab Results 12/11/20 12/11/20 12/10/20 05:31 05:31 05:24 WBC RBC 2.72 L Hgb 8.1 L Hct 25.5 L Plt Count Neut % (Auto) 80.4 H Lymph % (Auto) 6.3 L Lymph # (Auto) 0.53 L Perry # (Auto) Absolute Neutrophils ESR POC PT POC INR Sodium 129 L Chloride 92 L BUN 28 H Creatinine 3.6 H Glucose 194 H Hemoglobin A1c 9.0 H Calcium Phosphorus Alkaline Phosphatase Lactate Dehydrogenase 114 L C-Reactive Protein Albumin 2.4 L Albumin/Globulin Ratio 0.6 L 12/10/20 12/10/20 12/09/20 05:24 05:24 14:30 WBC 12.7 H RBC 2.92 L Hgb 8.7 L Hct 26.7 L Plt Count Neut % (Auto) 83.2 H Lymph % (Auto) 6.6 L Lymph # (Auto) 0.83 L Perry # (Auto) 0.99 H Absolute Neutrophils 10.55 H ESR POC PT POC INR Sodium 129 L Chloride 88 L BUN 53 H Creatinine 4.9 H Glucose 67 L Hemoglobin A1c Calcium Phosphorus 7.6 H* Alkaline Phosphatase Lactate Dehydrogenase 131 L C-Reactive Protein 6.40 H Albumin 2.9 L Albumin/Globulin Ratio 0.9 L 12/09/20 12/09/20 12/09/20 14:30 14:30 14:08 WBC RBC Hgb Hct Plt Count Neut % (Auto) Lymph % (Auto) Lymph # (Auto) Perry # (Auto) Absolute Neutrophils ESR 116 H POC PT 14.9 H POC INR 1.3 H Sodium 131 L Chloride 88 L BUN 41 H Creatinine 4.1 H Glucose Hemoglobin A1c Calcium 10.5 H Phosphorus Alkaline Phosphatase 120 H Lactate Dehydrogenase C-Reactive Protein Albumin Albumin/Globulin Ratio 0.9 L 12/09/20 14:08 WBC RBC 3.47 L Hgb 10.3 L Hct 32.0 L Plt Count 454 H Neut % (Auto) 79.4 H Lymph % (Auto) 8.1 L Lymph # (Auto) 0.89 L Perry # (Auto) 1.15 H Absolute Neutrophils 8.77 H ESR POC PT POC INR Sodium Chloride BUN Creatinine Glucose Hemoglobin A1c Calcium Phosphorus Alkaline Phosphatase Lactate Dehydrogenase C-Reactive Protein Albumin Albumin/Globulin Ratio Meds: Medications Acetaminophen (Tylenol) 650 mg PO Q6HP PRN PRN Reason: PAIN/FEVER > 101 Last Admin: 12/11/20 17:06 Dose: 650 mg Documented by: Albuterol/Ipratropium (Duoneb) 3 ml NEB Q4HP PRN PRN Reason: Shortness Of Breath Amitriptyline HCl (Elavil) 25 mg PO QHS [facility] Last Admin: 12/11/20 21:23 Dose: 25 mg Documented by: Amlodipine Besylate (Norvasc) 10 mg PO QDAY [facility] Last Admin: 12/12/20 07:01 Dose: 10 mg Documented by: Artificial Tears (Refresh Celluvisc) 1 each OU QIDP PRN PRN Reason: Dry Eyes Aspirin (Aspirin) 81 mg PO QDAY [facility] Last Admin: 12/12/20 07:00 Dose: 81 mg Documented by: Atorvastatin Calcium (Lipitor) 10 mg PO HS [facility] Last Admin: 12/11/20 21:23 Dose: 10 mg Documented by: Calcitriol (Rocaltrol) 0.25 mcg PO MoWeFr@0900 [facility] Last Admin: 12/12/20 07:03 Dose: Not Given Documented by: Calcium Acetate (Phoslo) 2,001 mg PO TIDPC [facility] Last Admin: 12/12/20 06:38 Dose: Not Given Documented by: Clonidine HCl (Catapres Tts 2) 1 patch TD Sa@0900 [facility] Clonidine HCl (Catapres) 0.1 mg PO ONCE PRN PRN Reason: Blood Pressure Clopidogrel Bisulfate (Plavix) 75 mg PO QDAY [facility] Last Admin: 12/12/20 07:01 Dose: 75 mg Documented by: Dextrose (Dextrose 50%) 0 ml IV UD PRN PRN Reason: Hypoglycemia Last Admin: 12/10/20 10:26 Dose: 25 ml Documented by: Diagnostic Test (Pha) (Accu-Chek) 1 each FS ACHS [facility] Last Admin: 12/12/20 06:36 Dose: 1 each Documented by: Docusate Sodium (Colace) 100 mg PO BID [facility] Last Admin: 12/12/20 07:01 Dose: 100 mg Documented by: Doxazosin Mesylate (Cardura) 4 mg PO QHS [facility] Last Admin: 12/11/20 21:24 Dose: 4 mg Documented by: Gabapentin (Neurontin) 600 mg PO MoWeFr@1600 [facility] Last Admin: 12/10/20 18:53 Dose: 600 mg Documented by: Glucose (Insta-Glucose) 15 gm PO PRN PRN PRN Reason: Hypoglycemia Heparin Sodium (Porcine) (Heparin) 5,000 unit SQ Q12 [facility] Last Admin: 12/12/20 07:03 Dose: 5,000 unit Documented by: Hydroxyzine HCl (Vistaril) 10 mg PO ONCE PRN PRN Reason: Itching Potassium Chloride 40 meq/ (Dextrose) 520 mls @ 130 mls/hr IV UD PRN PRN Reason: Potassium < 3 Magnesium Sulfate (Magnesium Sulfate) 2 gm in 50 mls @ 50 mls/hr IV UD PRN PRN Reason: Magnesium </= 1.6 Piperacillin Sod/Tazobactam (Sod 2.25 gm/ Dextrose) 50 mls @ 100 mls/hr IV Q8H [facility] Last Admin: 12/12/20 05:54 Dose: 100 mls/hr Documented by: Insulin Glargine (Lantus) 10 unit SQ BID [facility] Last Admin: 12/12/20 07:04 Dose: Not Given Documented by: Insulin Human Lispro (Humalog) 0 unit SQ [facility]; Protocol Last Admin: 12/12/20 06:38 Dose: Not Given Documented by: Lactulose (Cephulac) 20 gm PO DAILYP PRN PRN Reason: Constipation Lisinopril (Zestril) 40 mg PO BID [facility] Last Admin: 12/12/20 07:00 Dose: 40 mg Documented by: Ondansetron HCl (Zofran) 4 mg IV Q4HP PRN PRN Reason: Nausea And Vomiting Polyethylene Glycol (Miralax) 17 gm PO DAILYP PRN PRN Reason: Constipation Potassium Chloride (Kdur) 40 meq PO UD PRN PRN Reason: Potssium is 3-3.5 Potassium Chloride (Kdur) 40 meq PO UD PRN PRN Reason: Potassium < 3 Senna (Senokot) 2 tab PO DAILYP PRN PRN Reason: Constipation Sevelamer Carbonate (Renvela) 2,400 mg PO TIDAC [facility] Last Admin: 12/12/20 06:39 Dose: Not Given Documented by: Sodium Chloride (Saline Flush) 10 ml IV Q8 [facility] Last Admin: 12/12/20 05:54 Dose: 10 ml Documented by: Vitamin B Complex (Vitamin B Complex) 1 cap PO QDAY [facility] Last Admin: 12/12/20 07:01 Dose: 1 cap Documented by: A/P Narrative A/P Narrative: A: *Right foot non-healing diabetic wound infection w/subcutaneous necrosis/gas: s/p I&D (12/10) -GNB from wound cx *DM w/neuropathy: A1c 9.0 *ESRD: Follows with Dr. Joe *Anemia, chronic *PVD: on ASA/Plavix/statin, RLE stenting [place] [address] Landry -jeremy u/s with b/l LE stenosis *HTN/HLD: *Hyponatremia, chronic: P: -cont zosyn, 2wks IV therapy per ID -pending final BC/WC, mrsa pcr neg -Dr. Jay following; f/u with Dr. Landry -wound care -Dr. White has seen, pt likely will be on zosyn for ongoing IV therapy -HD/electrolytes per nephrology -Continue home Norvasc/clonidine/lisinopril -Continue ASA/Plavix/statin -takes levemir 30bid@home (decreased to 10bid while diet in flux and low BG) and SSI. -PT/OT -ppx: Heparin full Code Time Spent With Patient Time: Total time spent is greater than 50% in coordination of care (as documented) at patient's floor/unit and/or counseling patient: QUALITY VTE Deep Vein Thrombosis/Pulmonary Embolism Present on Admission: No
--- NOTE | 2020-12-12 12:57 | General Surgery Progress Note ---
SUBJECTIVE Subjective Patient information: Note initiated : 12/12/20 at 12:54 pm Service Date, if different from initiated Date: [] Patient: Robert Montes 55 y/o M admitted on 12/09/20 for wound on right foot. Chief Complaint: [] Additional PMFSH (Level 3 Only): Patient seen after HBOT earlier today. Examined his surgical wounds. Constitutional Vitals: Vital Signs Temp Pulse Resp BP Pulse Ox 99 F 100 H 18 107/41 99 12/12/20 12:09 12/12/20 12:35 12/12/20 12:00 12/12/20 12:35 12/12/20 12:00 Period Temp Pulse Resp BP Sys/Jesus Pulse Ox Last 24 Hr 98.4 F-100.3 F 90-105 16-20 107-157/41-90 93-99 Intake and Output 12/11/20 12/12/20 12/12/20 21:59 05:59 13:59 Intake Total 530 100 410 Balance 530 100 410 Weight 269 lb 4.8 oz Intake & Output: Intake & Output 12/11/20 12/12/20 12/12/20 21:59 05:59 13:59 Intake Total 530 100 410 Balance 530 100 410 Weight 269 lb 4.8 oz Intake: IV 50 50 50 Zosyn 2.25 gm In Dextrose 5% in 50 50 50 Water 50 ml @ 100 mls/hr IV Q8H [facility] Rx#:[id number] Oral 480 50 360 Other: Meal Breakfast Percent of Meal Consumed 75% Feeding Ability Independent General appearance: cooperative and no acute distress Exam: There are no changes in his ISMAEL. He will undergo scheduled hemodialysis this evening. He tolerated HBOT uneventfully. Examined his wounds. Improving. Will continue with HBOT tomorrow morning and later schedule his OR repeat debridement tomorrow at 12:00 Noon. A/P Narrative A/P Narrative: Assessment: Steady improvement with wound bed and toes. Needs continuation of HBOT and MIST for now. Appreciate ID consult and f/u Attended patient conference with hospital staff. Will reassess by TUESDAY about continuation of care / transfer to higher level of care. Plan: Await HD this evening. For HBOT tomorrow morning and later OR debridement. Time Spent With Patient Time: Total time spent is greater than 50% in coordination of care (as documented) at patient's floor/unit and/or counseling patient: Total time spent with greater than 50% in coordination of care (as documented) at patient's floor/unit and/or counseling patient:: Greater than 35 minutes
[2020-12-12] MEDS: GABAPENTIN 300 MG CAPSULE PO SCH (17:25)
[2020-12-12] MEDS: DOXAZOSIN 4 MG TABLET PO SCH (19:58)
[2020-12-12] MEDS: ATORVASTATIN 10 MG TABLET PO SCH (19:58)
[2020-12-12] MEDS: ACETAMINOPHEN 325 MG TABLET PO PRN (19:58)
[2020-12-12] MEDS: AMITRIPTYLINE 25 MG TABLET PO SCH (19:59)
[2020-12-13] MEDS: PIPERACILLIN SODIUM/TAZOBACTAM 2.25 GM in DEXTROSE 5% IN WATER 50 ML IV SCH ×3 (05:17→21:27)
[2020-12-13] MEDS: 0.9 % SODIUM CHLORIDE 10 ML SYRINGE IV SCH ×3 (05:22→21:28)
[2020-12-13] MEDS ORDERED: SCOPOLAMINE 1 PATCH PATCH TOPICAL PRN (06:00)
[2020-12-13] MEDS: INSULIN LISPRO 1 UNIT/0.01 ML UNIT SQ SCH ×4 (07:14→20:23)
[2020-12-13] MEDS: SEVELAMER 800 MG TABLET PO SCH ×3 (07:42→17:22)
[2020-12-13] MEDS: CALCIUM ACETATE 667 MG CAPSULE PO SCH ×3 (07:42→17:20)
[2020-12-13] MEDS: INSULIN GLARGINE, HUMAN 1 UNIT/0.01 ML SQ SCH ×3 (07:43→20:22)
[2020-12-13] MEDS: VITAMIN B COMPLEX 1 CAPSULE PO SCH (07:45)
[2020-12-13] MEDS: DOCUSATE SODIUM 100 MG CAPSULE PO SCH ×2 (07:52→20:23)
[2020-12-13] MEDS: LISINOPRIL 20 MG TABLET PO SCH ×2 (07:52→20:23)
[2020-12-13] MEDS: HEPARIN 5,000 UNIT/ML VIAL SQ SCH ×2 (07:56→20:22)
[2020-12-13] MEDS: ASPIRIN 81 MG TAB.CHEW PO SCH (07:56)
[2020-12-13] MEDS: amLODIPine 10 MG TABLET PO SCH (07:58)
--- NOTE | 2020-12-13 08:34 | Internal Med Progress Note ---
SUBJECTIVE Subjective Patient information: Note initiated : 12/13/20 at 8:31 am Service Date, if different from initiated Date: [] Patient: Robert Montes a 55 y/o M admitted on 12/09/20 for wound on right foot. Chief Complaint: [] Interval history: History of present illness: Mr. Montes is a 55 year old M Presents to the ED sent in by Dr. Jay at the wound care clinic for a right foot nonhealing wound that appears to be infected at this point and likely needs surgical debridement per Dr. Dominguez. Patient reports increased redness and also drainage which she describes as brown. Denies fevers but positive for chills. 12/10 No overnight event or new complaints. Patient for surgical debridement today. 12/11 Patient had debridement yesterday with no complications. Patient arterial ultrasound of the lower extremities which showed significant stenosis bilaterally. Letter new complaints. Patient home Levemir is listed as 40 units twice daily but says he takes only 30 twice daily. 12/12 Patient seems to doing well. Had hyperbaric treatment. 12/13 No new issues or concerns of the fact that he does not like his diabetic diet. He says he does not initially adhere to diabetic diet at home. Review of Systems: denies headache/fever/chills/nausea/vomiting/chest or abdominal pain/cough/dyspnea/diarrhea. Otherwise see above. Constitutional Vitals: Vital Signs Temp Pulse Resp BP Pulse Ox 97.9 F 75 18 135/75 93 12/13/20 07:29 12/13/20 07:29 12/13/20 07:29 12/13/20 07:29 12/13/20 07:29 Period Temp Pulse Resp BP Sys/Jesus Pulse Ox Last 24 Hr 97.5 F-101.8 F 52-114 16-18 99-149/41-88 91-99 Intake and Output 12/12/20 12/13/20 12/13/20 21:59 05:59 13:59 Intake Total 470 340 Output Total 3000 Balance -2530 340 Weight 117.798 kg Intake & Output: Intake & Output 12/12/20 12/13/20 12/13/20 21:59 05:59 13:59 Intake Total 470 340 Output Total 3000 Balance -2530 340 Weight 117.798 kg Intake: IV 50 100 Zosyn 2.25 gm In Dextrose 5% in 50 100 Water 50 ml @ 100 mls/hr IV Q8H [facility] Rx#:[id number] Oral 420 240 Output: Hemodialysis UF 3000 Other: Meal Dinner Percent of Meal Consumed 10% Feeding Ability Independent Exam: General: Alert, Awake, No acute Distress Eyes/N/T: EOMI, Head/Neck: neck supple, CV: RRR, 2/6 SM Pulm: Clear b/l, no wheezing/rhonchi/rales Abd: soft, nontender, +BS x4 Ext: no clubbing/cyanosis/edema to LLE. RLE in dressings Neuro: Alert, no focal deficits, moves all extremities, Skin: warm/dry OBJ DATA Labs CBC & Chem 7: 12/11/20 05:31 12/11/20 05:31 Labs: Abnormal Lab Results 12/11/20 12/11/20 12/10/20 05:31 05:31 05:24 RBC 2.72 L Hgb 8.1 L Hct 25.5 L Neut % (Auto) 80.4 H Lymph % (Auto) 6.3 L Lymph # (Auto) 0.53 L Sodium 129 L Chloride 92 L BUN 28 H Creatinine 3.6 H Glucose 194 H Hemoglobin A1c 9.0 H Lactate Dehydrogenase 114 L Albumin 2.4 L Albumin/Globulin Ratio 0.6 L Meds: Medications Acetaminophen (Tylenol) 650 mg PO Q6HP PRN PRN Reason: PAIN/FEVER > 101 Last Admin: 12/12/20 19:58 Dose: 650 mg Documented by: Albuterol/Ipratropium (Duoneb) 3 ml NEB Q4HP PRN PRN Reason: Shortness Of Breath Amitriptyline HCl (Elavil) 25 mg PO QHS [facility] Last Admin: 12/12/20 19:59 Dose: 25 mg Documented by: Amlodipine Besylate (Norvasc) 10 mg PO QDAY [facility] Last Admin: 12/13/20 07:58 Dose: Not Given Documented by: Artificial Tears (Refresh Celluvisc) 1 each OU QIDP PRN PRN Reason: Dry Eyes Aspirin (Aspirin) 81 mg PO QDAY [facility] Last Admin: 12/13/20 07:56 Dose: 81 mg Documented by: Atorvastatin Calcium (Lipitor) 10 mg PO [facility] Last Admin: 12/12/20 19:58 Dose: 10 mg Documented by: Calcitriol (Rocaltrol) 0.25 mcg PO MoWeFr@0900 [facility] Last Admin: 12/12/20 07:03 Dose: Not Given Documented by: Calcium Acetate (Phoslo) 2,001 mg PO TIDPC [facility] Last Admin: 12/13/20 07:42 Dose: Not Given Documented by: Clonidine HCl (Catapres Tts 2) 1 patch TD Sa@0900 [facility] Clonidine HCl (Catapres) 0.1 mg PO ONCE PRN PRN Reason: Blood Pressure Clopidogrel Bisulfate (Plavix) 75 mg PO QDAY [facility] Last Admin: 12/12/20 07:01 Dose: 75 mg Documented by: Dextrose (Dextrose 50%) 0 ml IV UD PRN PRN Reason: Hypoglycemia Last Admin: 12/10/20 10:26 Dose: 25 ml Documented by: Diagnostic Test (Pha) (Accu-Chek) 1 each FS ACHS [facility] Last Admin: 12/13/20 07:13 Dose: 1 each Documented by: Docusate Sodium (Colace) 100 mg PO BID [facility] Last Admin: 12/13/20 07:52 Dose: 100 mg Documented by: Doxazosin Mesylate (Cardura) 4 mg PO QHS [facility] Last Admin: 12/12/20 19:58 Dose: 4 mg Documented by: Gabapentin (Neurontin) 600 mg PO MoWeFr@1600 [facility] Last Admin: 12/12/20 17:25 Dose: 600 mg Documented by: Glucose (Insta-Glucose) 15 gm PO PRN PRN PRN Reason: Hypoglycemia Heparin Sodium (Porcine) (Heparin) 5,000 unit SQ Q12 [facility] Last Admin: 12/13/20 07:56 Dose: 5,000 unit Documented by: Hydroxyzine HCl (Vistaril) 10 mg PO ONCE PRN PRN Reason: Itching Potassium Chloride 40 meq/ (Dextrose) 520 mls @ 130 mls/hr IV UD PRN PRN Reason: Potassium < 3 Magnesium Sulfate (Magnesium Sulfate) 2 gm in 50 mls @ 50 mls/hr IV UD PRN PRN Reason: Magnesium </= 1.6 Piperacillin Sod/Tazobactam (Sod 2.25 gm/ Dextrose) 50 mls @ 100 mls/hr IV Q8H [facility] Last Infusion: 12/13/20 05:50 Dose: Infused Documented by: Insulin Glargine (Lantus) 10 unit SQ BID [facility] Last Admin: 12/13/20 07:43 Dose: Not Given Documented by: Insulin Human Lispro (Humalog) 0 unit SQ [facility]; Protocol Last Admin: 12/13/20 07:14 Dose: Not Given Documented by: Lactulose (Cephulac) 20 gm PO DAILYP PRN PRN Reason: Constipation Lisinopril (Zestril) 40 mg PO BID [facility] Last Admin: 12/13/20 07:52 Dose: 40 mg Documented by: Ondansetron HCl (Zofran) 4 mg IV Q4HP PRN PRN Reason: Nausea And Vomiting Polyethylene Glycol (Miralax) 17 gm PO DAILYP PRN PRN Reason: Constipation Potassium Chloride (Kdur) 40 meq PO UD PRN PRN Reason: Potssium is 3-3.5 Potassium Chloride (Kdur) 40 meq PO UD PRN PRN Reason: Potassium < 3 Scopolamine (Transderm-Scop) 1 patch TOPICAL PREOP PRN PRN Reason: Nausea And Vomiting Stop: 12/13/20 18:00 Senna (Senokot) 2 tab PO DAILYP PRN PRN Reason: Constipation Sevelamer Carbonate (Renvela) 2,400 mg PO TIDAC [facility] Last Admin: 12/13/20 07:42 Dose: Not Given Documented by: Sodium Chloride (Saline Flush) 10 ml IV Q8 [facility] Last Admin: 12/13/20 05:22 Dose: 10 ml Documented by: Vitamin B Complex (Vitamin B Complex) 1 cap PO QDAY [facility] Last Admin: 12/13/20 07:45 Dose: Not Given Documented by: A/P Narrative A/P Narrative: A: *Right foot non-healing diabetic wound infection w/subcutaneous necrosis/gas: s/p I&D (12/10) -wound cx wtih Enteroacter/Citrobacter/Pseudomonas *DM w/neuropathy: A1c 9.0 -Patient states he does not necessarily adhere to diabetic diet at home *ESRD: Follows with Dr. Joe *Anemia, chronic *PVD: on ASA/Plavix/statin, RLE [place] [address] Frantz barron u/s with b/l LE stenosis *HTN/HLD: *Hyponatremia, chronic: P: -cont zosyn, 2wks IV therapy per ID -Dr. Jay following; f/u with Dr. Lanrdy -wound care -Dr. White has seen, pt likely will be on zosyn for ongoing IV therapy -HD/electrolytes per nephrology -Continue home Norvasc/clonidine/lisinopril -Continue ASA/Plavix/statin -takes levemir 30bid@home (currently increased to 20bid) and SSI. -PT/OT -ppx: Heparin full Code Time Spent With Patient Time: Total time spent is greater than 50% in coordination of care (as documented) at patient's floor/unit and/or counseling patient: QUALITY VTE Deep Vein Thrombosis/Pulmonary Embolism Present on Admission: No
[2020-12-13] MEDS ORDERED: cloNIDine TTS 2 1 PATCH PATCH TD SCH (09:00)
[2020-12-13] MEDS: CLOPIDOGREL 75 MG TABLET PO SCH (10:45)
[2020-12-13] MEDS ORDERED: fentaNYL 100 MCG/2 ML VIAL IV ONE (12:10)
[2020-12-13] MEDS ORDERED: MIDAZOLAM 2 MG/2 ML VIAL ONE (12:10)
[2020-12-13] MEDS ORDERED: ONDANSETRON 4 MG/2 ML VIAL ONE (12:10)
[2020-12-13] MEDS ORDERED: KETAMINE 100 MG/ML ML ONE (12:10)
[2020-12-13] MEDS ORDERED: GLYCOPYRROLATE 0.2 MG/ML VIAL IV ONE (12:10)
[2020-12-13] MEDS ORDERED: GENTAMICIN SULFATE 800 MG/20 ML VIAL IR ONE (12:30)
--- NOTE | 2020-12-13 13:26 | Brief Operative Note ---
Brief Operative Note Date of procedure: 12/13/20 Pre-op diagnosis: Open post debrided surgical wounds RIGHT lower leg and lateral toes foot Post-op diagnosis: same Procedure: Second look: Repeat debridement, pulse lavage and and dressings over wound surfaces. Grafts/Implants: No Anesthesia: conscious sedation Findings: Minimal marginal necrotic skin edges, Andreina musculature and improved back bleeding from wound base and edges. Dimensions: LEG wound 15 x 11 x 2.5 CM Between 1/2 toes 3.5 x 2 x 1.5 CM Between 2/3 toes 3.5 x 2 x 1.5 CM Between 3/4 toes 2 x 1.5 x 1 CM Complications: none Surgeon: Osiel Jay Estimated blood loss (cc): 10 Specimens Removed/Pathology: none sent Disposition: floor
--- NOTE | 2020-12-13 14:08 | Nephrology Progress Note ---
SUBJECTIVE Subjective Patient information: Note initiated : 12/13/20 at 2:05 pm Service Date, if different from initiated Date: [] Patient: Robert Montes 55 y/o M admitted on 12/09/20 for wound on right foot. Chief Complaint: [Right foot wound and BS >500 on HD] Patient was seen and evaluated on morning rounds Patient was referred from wound care clinic on December 09, 2020 due to right foot infected ulcer, hyperglycemia, and failing outpatient therapy. He has a long history of diabetes, a fair amount of denial, mid been running blood sugars in excess of 400 partly because of infection and partly because he had just quit taking his Lantus insulin. He had he described as a blood blister that enlarged and eventually came to the attention of Dr. Jay required surgical debridement essentially every other day, IV antibiotics, HBO and the plan is to follow intraoperative bacteriologic therapy and currently using piperacillin tazobactam adjusted for ESRD. He dialyzes on a Tuesday schedule IV hours per treatment, attempting to get to 115 kg dry weight. He is about to go to the OR today for more debridement and he hopes to be discharged to a long term care pharmacist care facility for continued IV antibiotic therapy and wound care. A similar episode happened to his left foot last year and required about a year for complete healing. Microbiology 12/10/20 13:51 Toe - Fifth Gram Stain - Final 12/10/20 13:51 Toe - Fifth Wound Culture - Final Enterobacter cloacae Citrobacter freundii Pseudomonas aeruginosa 12/09/20 14:32 Blood Blood Culture - Preliminary 12/09/20 14:23 Blood Blood Culture - Preliminary 12/10/20 13:51 Toe - Fifth Gram Stain - Preliminary 12/10/20 13:51 Toe - Fifth Anaerobic Culture - Preliminary 12/09/20 19:51 Ankle - Right Gram Stain - Final 12/09/20 19:51 Ankle - Right Wound Culture - Final Citrobacter freundii Pseudomonas aeruginosa Klebsiella pneumoniae Enterobacter cloacae 12/09/20 19:50 Nose - Both Right and Left MRSA (PCR) - Final Constitutional Vitals: Vital Signs Temp Pulse Resp BP Pulse Ox 38.1 C H 100 H 20 167/93 96 12/13/20 11:53 12/13/20 11:53 12/13/20 11:53 12/13/20 11:53 12/13/20 11:53 Period Temp Pulse Resp BP Sys/Jesus Pulse Ox Last 24 Hr 36.4 C-38.8 C 75-114 16-20 99-167/65-93 91-98 Intake and Output 12/13/20 12/13/20 12/13/20 05:59 13:59 21:59 Intake Total 340 480 Balance 340 480 Intake & Output: Intake & Output 12/13/20 12/13/20 12/13/20 05:59 13:59 21:59 Intake Total 340 480 Balance 340 480 Intake: IV 100 Zosyn 2.25 gm In Dextrose 5% in 100 Water 50 ml @ 100 mls/hr IV Q8H [facility] Rx#:[id number] Oral 240 480 Other: Meal Breakfast Percent of Meal Consumed 100% Feeding Ability Independent General appearance: average body habitus, cooperative and no acute distress Head Head exam: Present normal inspection and normocephalic Eye Eye exam: Present EOMI and PERRL; Absent nystagmus Pupils: Present PERRL ENT ENT exam: Present mucous membranes moist Neck Neck exam: Present full ROM and normal inspection; Absent meningismus Respiratory Respiratory exam: Present normal respiratory exam and CTAB; Absent accessory muscle use and respiratory distress Cardiovascular Cardiovascular exam: Present normal rate and rhythm, RRR, +S1, +S2 and systolic murmur (3/6 JAELYN at apex); Absent gallop and rubs GI/Abdominal GI/Abdominal exam: Present normal bowel sounds and soft Extremities Exam Extremities exam: Absent calf tenderness and pedal edema Neurological Exam Neurological exam: Present alert, CN II-XII intact and oriented X3 Psychiatric Psychiatric exam: Present normal affect and normal mood Skin Skin exam: Present dry and intact; Absent petechiae and rash A/P Assessment and plan (1) ESRD (end stage renal disease) on dialysis: Assessment and plan: Robert Montes is a 55-year-old male with end stage renal disease on chronic hemodialysis, hypertension, hyperlipidemia and diabetes mellitus type 2 referred to the emergency room from the wound care clinic for the right foot wound on 12/09/20 and admitted. The wound was infected and required surgical debridement. End stage renal disease on chronic hemodialysis. Chronic anemia due to ESRD on Aranesp 60 mcg IV weekly on Wednesdays at the dialysis unit. Hyponatremia associated with ESRD. Plan: Hemodialysis for 4.5 hours today then continue outpatient schedule of Tuesday, Tuesday and Tuesday. Antibiotic dosing for ESRD on hemodialysis. Status: Chronic (2) Hyponatremia: Assessment and plan: Control glucose Free H2O restriction Mix IV meds in NS Status: Chronic (3) Anemia due to end stage renal disease: Assessment and plan: Aranesp q week Status: Chronic Comment: Aranesp 100 ug IV q weds with HD (4) Hyperparathyroidism, secondary: Status: Chronic Comment: Keep PO4 < 5.5 and PTHi < 300 (5) Diabetes mellitus with ESRD (end-stage renal disease): Status: Acute Comment: co morbid condition Time Spent With Patient Time: Total time spent is greater than 50% in coordination of care (as documented) at patient's floor/unit and/or counseling patient: Total time spent with greater than 50% in coordination of care (as documented) at patient's floor/unit and/or counseling patient:: Greater than 35 minutes
--- NOTE | 2020-12-13 15:59 | Internal Med Progress Note ---
SUBJECTIVE Subjective Patient information: Note initiated : 12/14/20 at 3:52 pm Service Date, if different from initiated Date: [] Patient: Robert Montes a 55 y/o M admitted on 12/09/20 for wound on right foot. Chief Complaint: [] Interval history: History of present illness: Mr. Montes is a 55 year old M Presents to the ED sent in by Dr. Jay at the wound care clinic for a right foot nonhealing wound that appears to be infected at this point and likely needs surgical debridement per Dr. Dominguez. Patient reports increased redness and also drainage which she describes as brown. Denies fevers but positive for chills. 12/10 No overnight event or new complaints. Patient for surgical debridement today. 12/11 Patient had debridement yesterday with no complications. Patient arterial ultrasound of the lower extremities which showed significant stenosis bilaterally. Patient home Levemir is listed as 40 units twice daily but says he takes only 30 twice daily. 12/12 Patient seems to doing well. Had hyperbaric treatment. 12/13 No new issues or concerns of the fact that he does not like his diabetic diet. He says he does not initially adhere to diabetic diet at home. 12/14 Had hyperbaric treatment today, glucose elevated. Review of Systems: denies headache/fever/chills/nausea/vomiting/chest or abdominal pain/cough/dyspn ea/diarrhea. Otherwise see above. Constitutional Vitals: Vital Signs Temp Pulse Resp BP Pulse Ox 98.6 F 94 H 16 142/88 93 12/13/20 12:51 12/13/20 14:53 12/13/20 12:51 12/13/20 14:53 12/13/20 14:53 Period Temp Pulse Resp BP Sys/Jesus Pulse Ox Last 24 Hr 97.5 F-101.8 F 75-114 16-20 99-167/70-93 90-98 Intake and Output 12/13/20 12/13/20 12/13/20 05:59 13:59 21:59 Intake Total 340 480 50 Balance 340 480 50 Intake & Output: Intake & Output 12/13/20 12/13/20 12/13/20 05:59 13:59 21:59 Intake Total 340 480 50 Balance 340 480 50 Intake: IV 100 50 Zosyn 2.25 gm In Dextrose 5% in 100 50 Water 50 ml @ 100 mls/hr IV Q8H [facility] Rx#:[id number] Oral 240 480 Other: Meal Breakfast Percent of Meal Consumed 100% Feeding Ability Independent Exam: General: Alert, Awake, No acute Distress Eyes/N/T: EOMI, Head/Neck: neck supple, CV: RRR, 2/6 SM Pulm: Clear b/l, no wheezing/rhonchi/rales Abd: soft, nontender, +BS x4 Ext: no clubbing/cyanosis/edema to LLE. RLE in dressings Neuro: Alert, no focal deficits, moves all extremities, Skin: warm/dry OBJ DATA Labs CBC & Chem 7: 12/11/20 05:31 12/11/20 05:31 Labs: Abnormal Lab Results 12/11/20 12/11/20 05:31 05:31 RBC 2.72 L Hgb 8.1 L Hct 25.5 L Neut % (Auto) 80.4 H Lymph % (Auto) 6.3 L Lymph # (Auto) 0.53 L Sodium 129 L Chloride 92 L BUN 28 H Creatinine 3.6 H Glucose 194 H Lactate Dehydrogenase 114 L Albumin 2.4 L Albumin/Globulin Ratio 0.6 L Meds: Medications Acetaminophen (Tylenol) 650 mg PO Q6HP PRN PRN Reason: PAIN/FEVER > 101 Last Admin: 12/12/20 19:58 Dose: 650 mg Documented by: Albuterol/Ipratropium (Duoneb) 3 ml NEB Q4HP PRN PRN Reason: Shortness Of Breath Amitriptyline HCl (Elavil) 25 mg PO QHS [facility] Last Admin: 12/12/20 19:59 Dose: 25 mg Documented by: Amlodipine Besylate (Norvasc) 10 mg PO QDAY [facility] Last Admin: 12/13/20 07:58 Dose: Not Given Documented by: Artificial Tears (Refresh Celluvisc) 1 each OU QIDP PRN PRN Reason: Dry Eyes Aspirin (Aspirin) 81 mg PO QDAY [facility] Last Admin: 12/13/20 07:56 Dose: 81 mg Documented by: Atorvastatin Calcium (Lipitor) 10 mg PO HS [facility] Last Admin: 12/12/20 19:58 Dose: 10 mg Documented by: Calcitriol (Rocaltrol) 0.25 mcg PO MoWeFr@0900 [facility] Last Admin: 12/12/20 07:03 Dose: Not Given Documented by: Calcium Acetate (Phoslo) 2,001 mg PO TIDPC [facility] Last Admin: 12/13/20 13:32 Dose: Not Given Documented by: Clonidine HCl (Catapres Tts 2) 1 patch TD Sa@0900 [facility] Last Admin: 12/13/20 10:42 Dose: 1 patch Documented by: Clonidine HCl (Catapres) 0.1 mg PO ONCE PRN PRN Reason: Blood Pressure Clopidogrel Bisulfate (Plavix) 75 mg PO QDAY [facility] Last Admin: 12/13/20 10:45 Dose: 75 mg Documented by: Dextrose (Dextrose 50%) 0 ml IV UD PRN PRN Reason: Hypoglycemia Last Admin: 12/10/20 10:26 Dose: 25 ml Documented by: Diagnostic Test (Pha) (Accu-Chek) 1 each FS ACHS [facility] Last Admin: 12/13/20 11:23 Dose: Not Given Documented by: Docusate Sodium (Colace) 100 mg PO BID [facility] Last Admin: 12/13/20 07:52 Dose: 100 mg Documented by: Doxazosin Mesylate (Cardura) 4 mg PO QHS [facility] Last Admin: 12/12/20 19:58 Dose: 4 mg Documented by: Gabapentin (Neurontin) 600 mg PO MoWeFr@1600 [facility] Last Admin: 12/12/20 17:25 Dose: 600 mg Documented by: Glucose (Insta-Glucose) 15 gm PO PRN PRN PRN Reason: Hypoglycemia Heparin Sodium (Porcine) (Heparin) 5,000 unit SQ Q12 [facility] Last Admin: 12/13/20 07:56 Dose: 5,000 unit Documented by: Hydroxyzine HCl (Vistaril) 10 mg PO ONCE PRN PRN Reason: Itching Potassium Chloride 40 meq/ (Dextrose) 520 mls @ 130 mls/hr IV UD PRN PRN Reason: Potassium < 3 Magnesium Sulfate (Magnesium Sulfate) 2 gm in 50 mls @ 50 mls/hr IV UD PRN PRN Reason: Magnesium </= 1.6 Piperacillin Sod/Tazobactam (Sod 2.25 gm/ Dextrose) 50 mls @ 100 mls/hr IV Q8H [facility] Last Infusion: 12/13/20 14:20 Dose: Infused Documented by: Insulin Glargine (Lantus) 20 unit SQ BID [facility] Last Admin: 12/13/20 11:22 Dose: Not Given Documented by: Insulin Human Lispro (Humalog) 0 unit SQ [facility]; Protocol Last Admin: 12/13/20 11:23 Dose: Not Given Documented by: Lactulose (Cephulac) 20 gm PO DAILYP PRN PRN Reason: Constipation Lisinopril (Zestril) 40 mg PO BID [facility] Last Admin: 12/13/20 07:52 Dose: 40 mg Documented by: Ondansetron HCl (Zofran) 4 mg IV Q4HP PRN PRN Reason: Nausea And Vomiting Polyethylene Glycol (Miralax) 17 gm PO DAILYP PRN PRN Reason: Constipation Potassium Chloride (Kdur) 40 meq PO UD PRN PRN Reason: Potssium is 3-3.5 Potassium Chloride (Kdur) 40 meq PO UD PRN PRN Reason: Potassium < 3 Scopolamine (Transderm-Scop) 1 patch TOPICAL PREOP PRN PRN Reason: Nausea And Vomiting Stop: 12/13/20 18:00 Senna (Senokot) 2 tab PO DAILYP PRN PRN Reason: Constipation Sevelamer Carbonate (Renvela) 2,400 mg PO TIDAC [facility] Last Admin: 12/13/20 13:32 Dose: Not Given Documented by: Sodium Chloride (Saline Flush) 10 ml IV Q8 [facility] Last Admin: 12/13/20 13:49 Dose: 10 ml Documented by: Vitamin B Complex (Vitamin B Complex) 1 cap PO QDAY [facility] Last Admin: 12/13/20 07:45 Dose: Not Given Documented by: A/P Assessment and plan (1) ESRD (end stage renal disease) on dialysis: Assessment and plan: Robert Montes is a 55-year-old male with end stage renal disease on chronic hemodialysis, hypertension, hyperlipidemia and diabetes mellitus type 2 referred to the emergency room from the wound care clinic for the right foot wound on 12/09/20 and admitted. The wound was infected and required surgical debridement. End stage renal disease on chronic hemodialysis. Chronic anemia due to ESRD on Aranesp 60 mcg IV weekly on Wednesdays at the dialysis unit. Hyponatremia associated with ESRD. Plan: Hemodialysis for 4.5 hours today then continue outpatient schedule of Tuesday, Tuesday and Tuesday. Antibiotic dosing for ESRD on hemodialysis. Status: Chronic (2) Hyponatremia: Assessment and plan: Control glucose Free H2O restriction Mix IV meds in NS Status: Chronic (3) Anemia due to end stage renal disease: Assessment and plan: Aranesp q week Status: Chronic Comment: Aranesp 100 ug IV q weds with HD (4) Hyperparathyroidism, secondary: Status: Chronic Comment: Keep PO4 < 5.5 and PTHi < 300 (5) Diabetes mellitus with ESRD (end-stage renal disease): Status: Acute Comment: co morbid condition Narrative A/P Narrative: ASSESSMENT: 55 year old male with poorly controlled DM II complicated by neuropathy, HTN, peripheral artery disease, ESRD on HD, nonhealing diabetic foot wounds now admitted for management of a nonhealing right foot diabetic wound in the setting of infection. #Right foot non-healing diabetic wound infection w/subcutaneous necrosis/gas: s/p I&D (12/10) -wound cx wtih Enteroacter/Citrobacter/Pseudomonas #DM w/neuropathy: A1c 9.0 -Patient states he does not necessarily adhere to diabetic diet at home #ESRD: Follows with Dr. Joe #Anemia, chronic #PVD: on ASA/Plavix/statin, RLE stent[place] [address] Frantz barron u/s with b/l LE stenosis #HTN/HLD: #Hyponatremia, chronic: P: -cont zosyn, 2wks IV therapy per ID -Dr. Jay following; f/u with Dr. Landry -wound care -Dr. White has seen, pt likely will be on zosyn for ongoing IV therapy -HD/electrolytes per nephrology -Continue home Norvasc/clonidine/lisinopril -Continue ASA/Plavix/statin -Increase Lantuse to 30 units BID, start Lispro 5 units ACHS, continue SSI. -PT/OT -ppx: Heparin full Code Time Spent With Patient Time: Total time spent is greater than 50% in coordination of care (as documented) at patient's floor/unit and/or counseling patient: 15 QUALITY VTE Deep Vein Thrombosis/Pulmonary Embolism Present on Admission: No
[2020-12-13] MEDS: ATORVASTATIN 10 MG TABLET PO SCH (20:23)
[2020-12-13] MEDS: AMITRIPTYLINE 25 MG TABLET PO SCH (20:23)
[2020-12-13] MEDS: DOXAZOSIN 4 MG TABLET PO SCH (20:23)
[2020-12-14] MEDS: PIPERACILLIN SODIUM/TAZOBACTAM 2.25 GM in DEXTROSE 5% IN WATER 50 ML IV SCH ×3 (05:46→21:15)
[2020-12-14] MEDS: 0.9 % SODIUM CHLORIDE 10 ML SYRINGE IV SCH ×3 (05:47→21:16)
[2020-12-14] MEDS: CALCIUM ACETATE 667 MG CAPSULE PO SCH ×3 (06:46→17:18)
[2020-12-14] MEDS: SEVELAMER 800 MG TABLET PO SCH ×3 (06:46→17:18)
[2020-12-14] MEDS: ASPIRIN 81 MG TAB.CHEW PO SCH (07:15)
[2020-12-14] MEDS: INSULIN LISPRO 1 UNIT/0.01 ML UNIT SQ SCH ×4 (07:15→21:10)
[2020-12-14] MEDS: HEPARIN 5,000 UNIT/ML VIAL SQ SCH ×2 (07:16→21:10)
[2020-12-14] MEDS: INSULIN GLARGINE, HUMAN 1 UNIT/0.01 ML SQ SCH ×2 (07:17→21:10)
[2020-12-14] MEDS: VITAMIN B COMPLEX 1 CAPSULE PO SCH ×2 (07:17→07:20)
[2020-12-14] MEDS: CLOPIDOGREL 75 MG TABLET PO SCH (07:18)
[2020-12-14] MEDS: DOCUSATE SODIUM 100 MG CAPSULE PO SCH ×2 (07:20→21:11)
[2020-12-14] MEDS: LISINOPRIL 20 MG TABLET PO SCH ×2 (07:21→21:11)
[2020-12-14] MEDS: amLODIPine 10 MG TABLET PO SCH (07:22)
--- NOTE | 2020-12-14 10:31 | General Surgery Progress Note ---
SUBJECTIVE Subjective Patient information: Note initiated : 12/14/20 at 10:27 am Service Date, if different from initiated Date: [] Patient: Robert Montes 55 y/o M admitted on 12/09/20 for wound on right foot. Chief Complaint: [] Additional PMFSH (Level 3 Only): Patient seen and progress reviewed with Marilee BERGER. Constitutional Vitals: Vital Signs Temp Pulse Resp BP Pulse Ox 98.6 F 77 18 130/74 94 12/14/20 06:44 12/14/20 07:28 12/14/20 07:28 12/14/20 06:44 12/14/20 07:28 Period Temp Pulse Resp BP Sys/Jesus Pulse Ox Last 24 Hr 98.6 F-101.4 F 77-100 16-20 122-167/74-93 90-98 Intake and Output 12/13/20 12/14/20 12/14/20 21:59 05:59 13:59 Intake Total 50 550 370 Balance 50 550 370 Weight 261 lb 6.4 oz Intake & Output: Intake & Output 12/13/20 12/14/20 12/14/20 21:59 05:59 13:59 Intake Total 50 550 370 Balance 50 550 370 Weight 261 lb 6.4 oz Intake: IV 50 50 50 Zosyn 2.25 gm In Dextrose 5% in 50 50 50 Water 50 ml @ 100 mls/hr IV Q8H [facility] Rx#:[id number] Oral 0 500 320 Other: Meal Breakfast Percent of Meal Consumed 100% Feeding Ability Independent General appearance: cooperative and no acute distress Exam: AVSS. No changes ISMAEL. Right foot dressing CDI. Dry gangrene lateral toe tips continuing to demarcate. A/P Narrative A/P Narrative: Assessment: Satisfactory progress. Culture results reviewed. On going IV antibiotics. Tolerating HBOT. Plan: For reassessment of wound tomorrow AM NO dressing changes and MIST treatment today. Time Spent With Patient Time: Total time spent is greater than 50% in coordination of care (as documented) at patient's floor/unit and/or counseling patient: Total time spent with greater than 50% in coordination of care (as documented) at patient's floor/unit and/or counseling patient:: 15 - 24 minutes
[2020-12-14] MEDS ORDERED: INSULIN LISPRO 1 UNIT/0.01 ML UNIT SQ SCH (21:00)
[2020-12-14] MEDS ORDERED: INSULIN GLARGINE, HUMAN 1 UNIT/0.01 ML SQ SCH (21:00)
[2020-12-14] MEDS: DOXAZOSIN 4 MG TABLET PO SCH (21:11)
[2020-12-14] MEDS: ATORVASTATIN 10 MG TABLET PO SCH (21:11)
[2020-12-14] MEDS: AMITRIPTYLINE 25 MG TABLET PO SCH (21:11)
[2020-12-15] MEDS: 0.9 % SODIUM CHLORIDE 10 ML SYRINGE IV SCH ×2 (05:57→16:19)
[2020-12-15] MEDS: PIPERACILLIN SODIUM/TAZOBACTAM 2.25 GM in DEXTROSE 5% IN WATER 50 ML IV SCH (05:57)
[2020-12-15] MEDS: INSULIN LISPRO 1 UNIT/0.01 ML UNIT SQ SCH ×2 (06:26→11:11)
[2020-12-15 06:29] LABS: Basophils # (Auto) 0.05 K/mcL (0.00-0.20); Basophils % (Auto) 0.5 % (0.0-2.0); Eosinophils # (Auto) 0.49 K/mcL (0.00-0.70); Eosinophils % (Auto) 5.4 % (0.0-7.0); Hematocrit 24.5 % (41.0-55.0); Hemoglobin 7.8 g/dL (13.5-16.5); Lymphocytes # (Auto) 0.83 K/mcL (1.50-4.80); Lymphocytes % (Auto) 9.1 % (15.0-49.0); Mean Cell Volume 91.8 fL (80.0-100.0); Mean Corpuscular HGB Conc 31.8 g/dL (31.0-36.0); Mean Platelet Volume 9.1 fL (7.4-10.4); Monocytes # (Auto) 0.52 K/mcL (0.10-0.90); Monocytes % (Auto) 5.7 % (1.0-12.0); Neutrophils % (Auto) 79.3 % (38.0-78.0); Platelet Count 349 K/mcL (140-440); RBC 2.67 M/mcL (4.50-5.90); Red Cell Distribution Width 14.5 % (11.5-14.5); WBC 9.2 K/mcL (4.5-11.0)
[2020-12-15] MEDS: SEVELAMER 800 MG TABLET PO SCH (06:33)
[2020-12-15] MEDS: CALCIUM ACETATE 667 MG CAPSULE PO SCH (06:33)
[2020-12-15 07:14] LABS: Albumin 2.7 gm/dL (3.2-5.2); Blood Urea Nitrogen 52 mg/dL (6-20); Calcium 9.7 mg/dL (8.6-10.4); Carbon Dioxide 22 mmol/L (22-30); Chloride 87 mmol/L (96-108); Glomerular Filtration Rate 9; Glucose 138 mg/dL (70-105); Phosphorous 6.8 mg/dL (2.5-4.5)
--- NOTE | 2020-12-15 08:38 | Operative Note ---
DATE OF OPERATION: 12/13/2020 PREOPERATIVE DIAGNOSES: Open postsurgical debrided wounds, right lower medial leg and right foot between lateral toes. POSTOPERATIVE DIAGNOSES: Open postsurgical debrided wounds, right lower medial leg and right foot between lateral toes. PROCEDURE: Repeat debridement with pulse lavage and Versajet irrigation. SURGEON: Osiel Jay M.D. ANESTHESIA: Conscious sedation PROFESSIONAL SHOPPER: Maikel Garcia CRNA. FINDINGS: Measurements of right lower leg wound size is unchanged at 15 x 11 x 2.5 cm, between first and second toes 3.5 x 2 x 1.5 cm, between second and third toes 3.5 x 2 x 1.5 cm, and between third and fourth toes 2 x 1.5 x 1 cm. COMPLICATIONS: None. ESTIMATED BLOOD LOSS: About 10 mL. COUNTS: Count of swabs, instruments and needles reported to be correct. INDICATIONS: This is the second trip to the operating room for this patient. He presented with complications of peripheral arterial disease, insulin-dependent diabetes, and skin necrosis of the foot, which developed into gas gangrene. He initially underwent excision of necrotic tissue and pulse lavage irrigation over 48 hours ago. He is currently undergoing local wound care and adjuvant hyperbaric oxygen therapy. Wound cultures were reviewed. His antibiotics managed by Dr. White, infectious disease specialist. PROCEDURE NOTE IN DETAIL: The patient is taken to the operating room for dressing changes and repeat inspection and debridement. After hyperbaric oxygen treatment this morning, the patient is taken to the operating room for further debridement and dressing change. After obtaining informed consent, the patient was taken to the OR. Timeout was called. He was placed supine on the bed. Intravenous analgesia was given by the metal furniture polisher. Under close hemodynamic monitoring and pulse oxygen saturation check, the dressings were taken down. Preoperative photograph was taken. The right leg was widely cleaned, prepped, and draped in the standard fashion from the knees down to the toes. The wound edges had slight marginal edge necrosis as shown in the clinical photographs. First, the wound bed and wound margins and periwound adhesions were widely cleaned and thoroughly debrided and washed with pulse lavage irrigation. We used 3 liters of normal saline mixed with 800 mg of gentamicin solution. A second part of the debridement consisted of using Versajet 15-degree ultrasound-guided debrider for the wound base and along the wound margins. This revealed bright red oozing from the wound bed and wound edges. Completion photographs were taken. Count of swabs, instruments, and needles was verified to be correct. We dressed this wound by applying SilvaSorb cream over the wound surface and between the toes. This was dressed with Adaptic gauze reinforced with 4 x 4 gauze, Kerlix, Coban, and Driss respectively. The operation was well tolerated. He recovered from the procedure uneventfully and was taken to in stable condition. VD:claudia Job ID: [id number] Doc ID: [id number] Osiel Jay MD
--- NOTE | 2020-12-15 08:57 | Nephrology Progress Note ---
SUBJECTIVE Subjective Patient information: Note initiated : 12/15/20 at 8:51 am Service Date, if different from initiated Date: [] Patient: Robert Montes 55 y/o M admitted on 12/09/20 for wound on right foot. Chief Complaint: [ESRD/infected right heel/foot and DM OOC] Seen and examined on HD Went to OR for debridment this am Spoke with pharmacy about switching vanco to be mixed in NS not D5w Increased both CaAcetate and sevalemer dosing Constitutional Vitals: Vital Signs Temp Pulse Resp BP Pulse Ox 37.5 C H 78 18 123/72 99 12/15/20 08:00 12/15/20 08:00 12/15/20 08:00 12/15/20 08:00 12/15/20 08:00 Period Temp Pulse Resp BP Sys/Jesus Pulse Ox Last 24 Hr 36.9 C-37.6 C 76-87 16-20 123-144/70-85 94-99 Intake and Output 12/14/20 12/15/20 12/15/20 21:59 05:59 13:59 Intake Total 390 300 Balance 390 300 Weight 120.746 kg Intake & Output: Intake & Output 12/14/20 12/15/20 12/15/20 21:59 05:59 13:59 Intake Total 390 300 Balance 390 300 Weight 120.746 kg Intake: IV 100 Zosyn 2.25 gm In Dextrose 5% in 100 Water 50 ml @ 100 mls/hr IV Q8H [facility] Rx#:[id number] Oral 290 300 Laboratory Results - last 48 hr 12/15/20 12/15/20 12/15/20 05:15 05:15 05:15 WBC 9.2 RBC 2.67 L Hgb 7.8 L Hct 24.5 L MCV 91.8 MCH 29.2 MCHC 31.8 RDW 14.5 Plt Count 349 MPV 9.1 Neut % (Auto) 79.3 H Lymph % (Auto) 9.1 L [place] % (Auto) 5.7 Eos % (Auto) 5.4 Baso % (Auto) 0.5 Lymph # (Auto) 0.83 L [place] # (Auto) 0.52 Eos # (Auto) 0.49 Baso # (Auto) 0.05 Absolute Neutrophils 7.26 Sodium 126 L Potassium 5.0 Chloride 87 L Carbon Dioxide 22 Anion Gap 17.0 H BUN 52 H Creatinine 6.3 H* GFR Calculation 9 Glucose 138 H Calcium 9.7 Phosphorus 6.8 H* Albumin 2.7 L PTH Intact 267.1 H General appearance: no acute distress Exam: Nontoxic Head Head exam: Present atraumatic and normal inspection Eye Eye exam: Present EOMI and PERRL; Absent nystagmus and scleral icterus ENT ENT exam: Present mucous membranes moist Neck Neck exam: Present full ROM and normal inspection; Absent meningismus Respiratory Respiratory exam: Present normal respiratory exam and CTAB; Absent accessory muscle use Cardiovascular Cardiovascular exam: Present normal rate and rhythm, JVD, RRR, +S1, +S2 and systolic murmur (3/6 JAELYN) GI/Abdominal GI/Abdominal exam: Present normal bowel sounds and soft Extremities Exam Extremities exam: Absent calf tenderness and pedal edema Additional comments: Right foot wrapped Neurological Exam Neurological exam: Present alert, CN II-XII intact and oriented X3 Additional comments: Diabetic peripheral neuropathy Psychiatric Psychiatric exam: Present normal affect Skin Skin exam: Present dry; Absent intact Additional comments: Debriding right foot A/P Assessment and plan (1) Diabetes mellitus with ESRD (end-stage renal disease): Status: Chronic Comment: co morbid condition (2) Chronic kidney disease, stage V requiring chronic dialysis: Status: Acute Comment: MWF (3) Hyponatremia: Status: Chronic Comment: Too much water in the form of D5W with his pip/jefe (4) Anemia due to end stage renal disease: Status: Chronic Comment: Aranesp 100 ug IV q weds with HD (5) Secondary diabetes mellitus with hypertension and end stage renal disease on dialysis: Status: Chronic Comment: HD q MWF Continue outpatient BP Rx Narrative A/P Narrative: 1. Dialysis Tuesday and Tuesday 2. Aranesp weekly 100 mcg and minimize excessive blood drawing 3. Increase his phosphate binder 4. Mix piperacillin tazobactam in normal saline not D5W 5. Weekly labs would be sufficient Time Spent With Patient Time: Total time spent is greater than 50% in coordination of care (as documented) at patient's floor/unit and/or counseling patient:
[2020-12-15] MEDS: CALCITRIOL 0.25 MCG CAPSULE PO SCH (10:47)
[2020-12-15] MEDS: ASPIRIN 81 MG TAB.CHEW PO SCH (10:47)
[2020-12-15] MEDS: LISINOPRIL 20 MG TABLET PO SCH (10:48)
[2020-12-15] MEDS: DOCUSATE SODIUM 100 MG CAPSULE PO SCH (10:48)
[2020-12-15] MEDS: CLOPIDOGREL 75 MG TABLET PO SCH (10:48)
[2020-12-15] MEDS: HEPARIN 5,000 UNIT/ML VIAL SQ SCH (10:49)
[2020-12-15] MEDS: amLODIPine 10 MG TABLET PO SCH (10:49)
[2020-12-15] MEDS: INSULIN GLARGINE, HUMAN 1 UNIT/0.01 ML SQ SCH (10:49)
[2020-12-15] MEDS: VITAMIN B COMPLEX 1 CAPSULE PO SCH (10:52)
[2020-12-15] MEDS ORDERED: SEVELAMER 800 MG TABLET PO SCH (11:30)
[2020-12-15] MEDS ORDERED: CALCIUM ACETATE 667 MG CAPSULE PO SCH (12:30)
[2020-12-15] MEDS ORDERED: PIPERACILLIN SODIUM/TAZOBACTAM 2.25 GM in 0.9 % SODIUM CHLORIDE 50 ML IV SCH (14:00)
--- NOTE | 2020-12-15 15:31 | Discharge Summary ---
Discharge Provider Provider Patient information: Note initiated : 12/15/20 at 3:10 pm Service Date, if different from initiated Date: [] Patient: Robert Montes 55 y/o M admitted on 12/09/20 for wound on right foot. Chief Complaint: [right lower extremity wound ] Date of admission: 12/09/20 16:32 Discharge date: 12/15/20 Primary care physician: Violet Silva Consults: 12/09/20 Consult to Physician [CONS] Stat Comment: Consulting Provider: José Yost Reason For Exam: Physician to Consult Consult to Physician [CONS] Stat Comment: Consulting Provider: Janet Joe Reason For Exam: Physician to Consult 12/09/20 16:20 Consult to Physician [CONS] Stat Comment: Consulting Provider: Peña White Reason For Exam: Physician to Consult 12/09/20 16:42 Consult to Physician [CONS] Routine Comment: Consulting Provider: Peña White Reason For Exam: Physician to Consult Consult to Physician [CONS] Urgent Comment: Consulting Provider: Osiel Jay Reason For Exam: Physician to Consult Discharge Meds Discharge Medications Home Medications aspirin 81 mg tablet,delayed release 81 mg PO QDAY 09/06/18 [History Confirmed 12/09/20 Last Taken 01/30/20 04:30] clopidogrel 75 mg tablet 75 mg PO QDAY #30 tab 12/11/18 [Rx Confirmed 12/09/20 Last Taken 01/30/20 04:30] B complex-vitamin C-folic acid 100 mg-folic acid 1 mg tablet 1 tab PO QDAY #30 tab 03/28/19 [Rx Confirmed 12/09/20 Last Taken 01/30/20 04:30] dextran 70-hypromellose 1 each OP QIDP PRN 11/02/19 [History Confirmed 12/09/20 Last Taken 01/30/20 04:30] silver sulfadiazine 1 appful TOPICAL PRN PRN 11/02/19 [History Confirmed 12/09/20 Last Taken 01/29/20] arginine 7 gram-glutamine 7 gram-calcium HMB 1.5 gram oral powder pack See Rx Instructions PO .COMPLEX #30 each 04/16/20 [Rx Confirmed 12/09/20 Last Taken Unknown] clonidine 0.2 mg/24 hr weekly transdermal patch 1 patch TRANSDERMA QWEEK #4 each 06/04/20 [Rx Confirmed 12/09/20 Last Taken Unknown] acetaminophen 325 mg tablet 650 mg PO PRN PRN 06/18/20 [History Confirmed 12/09/20 Last Taken Unknown] amino ac-protein hydr-whey pro 10 gram-100 kcal/30 mL oral liquid 1 each PO 3XW ml 06/18/20 [History Confirmed 12/09/20 Last Taken Unknown] calcitriol 0.25 mcg capsule 0.25 mcg PO 3XW 06/18/20 [History Confirmed 12/09/20 Last Taken Unknown] calcium acetate(phosphat bind) 667 mg capsule 2,001 mg PO .TID pc #270 cap 06/18/20 [Rx Confirmed 12/09/20 Last Taken Unknown] clonidine HCl 0.1 mg tablet 0.1 mg PO ONCE PRN tab 06/18/20 [History Confirmed 12/09/20 Last Taken Unknown] etelcalcetide 5 mg/mL intravenous solution 10 mg IV 3XW 06/18/20 [History Confirmed 12/09/20 Last Taken Unknown] heparin (porcine) 1,000 unit/mL injection solution 1,500 unit IV 3XW ml 06/18/20 [History Confirmed 12/09/20 Last Taken Unknown] heparin (porcine) 1,000 unit/mL injection solution 2,000 unit IV Q4W ml 06/18/20 [History Confirmed 12/09/20 Last Taken Unknown] heparin (porcine) 1,000 unit/mL injection solution 4,000 unit IV 3XW ml 06/18/20 [History Confirmed 12/09/20 Last Taken Unknown] hydroxyzine HCl 10 mg tablet 10 mg PO ONCE PRN tab 06/18/20 [History Confirmed 12/09/20 Last Taken Unknown] insulin aspart U-100 100 unit/mL subcutaneous solution 12 unit SUB-Q .BID ac ml 06/18/20 [History Confirmed 12/09/20 Last Taken Unknown] lisinopril 40 mg tablet 40 mg PO BID #60 tab 06/18/20 [Rx Confirmed 12/09/20 Last Taken Unknown] loperamide 2 mg capsule 4 mg PO ONCE PRN cap 06/18/20 [History Confirmed 12/09/20 Last Taken Unknown] ondansetron HCl 2 mg/mL intravenous solution 4 mg IM ONCE PRN ml 06/18/20 [History Confirmed 12/09/20 Last Taken Unknown] sodium ferric gluconat-sucrose 62.5 mg/5 mL intravenous 62.5 mg IV QWEEK ml 06/18/20 [History Confirmed 12/09/20 Last Taken Unknown] doxazosin 2 mg tablet 4 mg PO QHS #60 tab 07/10/20 [Rx Confirmed 12/09/20 Last T aken Unknown] sevelamer HCl 800 mg tablet 2,400 mg PO .tid ac #270 tab 07/10/20 [Rx Confirmed 12/09/20 Last Taken Unknown] rosuvastatin 5 mg tablet 5 mg PO QPM #30 tab 07/15/20 [Rx Confirmed 12/09/20 Last Taken Unknown] amlodipine 10 mg tablet 10 mg PO QDAY #30 tab 08/25/20 [Rx Confirmed 12/09/20 Last Taken Unknown] gabapentin 600 mg tablet 600 mg PO .COMPLEX #30 tab 11/07/20 [Rx Confirmed 12/09/20 Last Taken Unknown] amitriptyline 25 mg tablet 25 mg PO QHS #30 tab 11/11/20 [Rx Confirmed 12/09/20 Last Taken Unknown] insulin glargine [Lantus U-100 Insulin] 20 unit SUBCUT BID #10 ml 12/15/20 [Rx Last Taken Unknown] yamfhsuulpxd-fydswxheny-szhgkt [Zosyn in dextrose (iso-osm)] 2.25 g IV Q8H #1200 ml 12/15/20 [Rx Last Taken Unknown] COURSE Hospital Course Hospital course: This is a 55 year old male with 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 The patient has recently been following with surgery for the wound then admitted and surgery's request when the wound showed signs of deterioration. Wound cultures were taken and that patient started on antibiotics. Wound cultures grew Citrobacter, Pseudomonas, Klebsiella, and Enterobacter organisms. Antibiotics were descalated to Zosyn and that was continued during the hospitalization. An arterial duplex of the lower extremity showed severe atherosclerotic disease in both legs with greater than 80% stenosis in the midportion of the right thigh and less than 70% stenosis in the midportion of the left thigh. 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 Surgery felt the patient required an attempt for revascularization and contacted interventional radiology at [facility]. The patient was accepted at [facility] for possible stent placement by interventional radiology. During this hospital stay the patient was nonadherent with the insulin regimen taking lantus intermittently and correction insulin only when glucose severely elevated. He does have a history of labile glycemic control therefore I decreased his discharge dose of lantus to 20 units BID. I discontinued Glipizide because the patient has ESRD. I continued Zosyn in the discharge orders for reference at the accepting hospital. When admitted to [facility] I recommend consulting interventional radiology for vascular intervention. Consider consulting infectious disease. The patient was treated with Zosyn here as all bacteria in the cultures were se nsitive. I believe the patient will ultimately require an amputation for this wound. It is unlikely to heal even if adequate blood supply can be established. The last progress note is provided below for reference. Assessment: #Right foot non-healing diabetic wound infection w/subcutaneous necrosis/gas: s/p I&D (12/10) -wound cx with Enteroacter/Citrobacter/Pseudomonas/Klebsiella #DM w/neuropathy: A1c 9.0 -Patient states he does not necessarily adhere to diabetic diet at home #ESRD on HD: Follows with Dr. Joe #Anemia, chronic #PVD: on ASA/Plavix/statin, RLE stenting [place] [address] Landry -aa u/s with b/l LE stenosis #HTN/HLD: #Hyponatremia, chronic: Plan: -cont zosyn, 2wks IV therapy per ID -Dr. Jay following; f/u with Dr. Landry -wound care -Dr. White has seen, pt likely will be on zosyn for ongoing IV therapy -HD/electrolytes per nephrology -Continue home Norvasc/clonidine/lisinopril -Continue ASA/Plavix/statin -Lantuse 20 units BID and SSI. -PT/OT -ppx: Heparin -full Code Discharge diagnosis: nonhealing right lower extremity wound Time Spent with Patient Time attestation: Total time spent providing and/or coordinating discharge services: 35 EXAM Constitutional Vitals: Temp Pulse Resp BP Pulse Ox 99.2 F H 74 18 160/82 99 12/15/20 12:15 12/15/20 15:00 12/15/20 08:00 12/15/20 15:00 12/15/20 08:00 Head Head exam: Present atraumatic and normal inspection Eye Eye exam: Present normal appearance; Absent scleral icterus Neck Neck exam: Present full ROM Cardiovascular Cardiovascular exam: Present normal rate and rhythm GI/Abdominal GI/Abdominal exam: Present normal bowel sounds; Absent distended Extremities Exam Additional comments: Wound on right lower extremity covered in clean bandage. Neurological Exam Neurological exam: Present alert, CN II-XII intact and oriented X3 Psychiatric Psychiatric exam: Present normal affect and normal mood Skin Additional comments: Large wound on right lower extremity. Discharge Data Data Completed and Pending Labs on day of discharge: Labs from last 24 hours 12/15/20 12/15/20 12/15/20 05:15 05:15 05:15 WBC 9.2 RBC 2.67 L Hgb 7.8 L Hct 24.5 L MCV 91.8 MCH 29.2 MCHC 31.8 RDW 14.5 Plt Count 349 MPV 9.1 Neut % (Auto) 79.3 H Lymph % (Auto) 9.1 L [place] % (Auto) 5.7 Eos % (Auto) 5.4 Baso % (Auto) 0.5 Lymph # (Auto) 0.83 L [place] # (Auto) 0.52 Eos # (Auto) 0.49 Baso # (Auto) 0.05 Absolute Neutrophils 7.26 Sodium 126 L Potassium 5.0 Chloride 87 L Carbon Dioxide 22 Anion Gap 17.0 H BUN 52 H Creatinine 6.3 H* GFR Calculation 9 Glucose 138 H Calcium 9.7 Phosphorus 6.8 H* Albumin 2.7 L PTH Intact 267.1 H Preliminary micro results at discharge 12/10/20 13:51 Gram Stain - Preliminary Toe - Fifth Anaerobic Culture - Preliminary Discharge Plan Patient/Caregiver Discharge Instructions Activity: non-weight bearing Diet: Consistent Carbohydrate Prescriptions: New Lantus U-100 Insulin 100 unit/mL Solution 20 unit subcut BID Qty: 10 RF: 3 Zosyn in dextrose (iso-osm) 2.25 gram/50 mL piggyback 2.25 g IV Q8H Qty: 1200 RF: 3 Continued aspirin 81 mg tablet,delayed release (DR/EC) 81 mg PO QDAY RF: 0 clopidogrel [Plavix] 75 mg tablet 75 mg PO QDAY Qty: 30 RF: 6 Dialyvite 100-1 mg tablet 1 tab PO QDAY Qty: 30 RF: 6 arginine 7 gram-glutamine 7 gram-calcium HMB 1.5 gram oral powder pack 7-7-1.5 gram powder in packet See Rx Instructions PO .COMPLEX Qty: 30 RF: 3 clonidine 0.2 mg/24 hr patch weekly 1 patch TRANSDERMA QWEEK Qty: 4 RF: 11 acetaminophen 325 mg tablet 650 mg PO PRN PRN (Reason: pain ) RF: 0 calcitriol 0.25 mcg capsule 0.25 mcg PO 3XW RF: 0 clonidine HCl 0.1 mg tablet 0.1 mg PO ONCE PRN (Reason: Blood Pressure) RF: 0 sodium ferric gluconat-sucrose [Ferrlecit] 62.5 mg/5 mL solution 62.5 mg IV QWEEK RF: 0 ondansetron HCl 2 mg/mL solution 4 mg IM ONCE PRN (Reason: Nausea) RF: 0 ProSource 10-100 gram-kcal/30 mL liquid 1 each PO 3XW RF: 0 calcium acetate(phosphat bind) 667 mg capsule 2,001 mg PO .TID pc Qty: 270 RF: 12 Parsabiv 5 mg/mL solution 10 mg IV 3XW RF: 0 insulin aspart U-100 100 unit/mL solution 12 unit SUB-Q .BID ac RF: 0 heparin (porcine) 1,000 unit/mL solution 2,000 unit IV Q4W RF: 0 heparin (porcine) 1,000 unit/mL solution 4,000 unit IV 3XW RF: 0 heparin (porcine) 1,000 unit/mL solution 1,500 unit IV 3XW RF: 0 hydroxyzine HCl 10 mg tablet 10 mg PO ONCE PRN (Reason: Itching) RF: 0 loperamide [Imodium A-D] 2 mg capsule 4 mg PO ONCE PRN (Reason: Diarrhea) RF: 0 lisinopril 40 mg tablet 40 mg PO BID Qty: 60 RF: 11 doxazosin 2 mg tablet 4 mg PO QHS Qty: 60 RF: 11 sevelamer HCl 800 mg tablet 2,400 mg PO .tid ac Qty: 270 RF: 12 rosuvastatin 5 mg tablet 5 mg PO QPM Qty: 30 RF: 11 amlodipine 10 mg tablet 10 mg PO QDAY Qty: 30 RF: 11 gabapentin 600 mg tablet 600 mg PO .COMPLEX Qty: 30 RF: 11 amitriptyline 25 mg tablet 25 mg PO QHS Qty: 30 RF: 11 silver sulfadiazine 1 cream 1 appful topical PRN PRN (Reason: Dry Skin) RF: 0 dextran 70-hypromellose 1 EACH dropperette 1 each OP QIDP PRN (Reason: Dry Eyes) RF: 0 Discontinued glipizide 5 mg tablet extended release 24hr 5 mg PO QDAY Qty: 30 RF: 11 insulin detemir U-100 100 UNIT/ML insulin pen 40 unit SQ BID RF: 0 Follow Up Plan Follow up with: Violet Silva MD [Primary Care Provider] - Patient Disposition: [facility] Rehab Potential: Fair Discharge Orders: Discharge Order (Routine); Ordered 12/15/20 Ordered By: Rhys WYNN VTE Deep Vein Thrombosis/Pulmonary Embolism Present on Admission: No
[2020-12-15] MEDS: GABAPENTIN 300 MG CAPSULE PO SCH (16:18)
--- NOTE | 2020-12-15 16:24 | General Surgery Progress Note ---
SUBJECTIVE Subjective Patient information: Note initiated : 12/15/20 at 4:21 pm Service Date, if different from initiated Date: [] Patient: Robert Montes 55 y/o M admitted on 12/09/20 for wound on right foot. Chief Complaint: [] Additional PMFSH (Level 3 Only): Patient seen several times during the day. Discussed his situation at length with nursing staff and Hospitalist . Spoke with Dr. Sal SIMMONS, Interventional Radiologist and Dr. Peña White, Infectious Disease Specialist. Reviewed Nephrology note and saw patient during HBOT and later during dialysis treatment. Constitutional Vitals: Vital Signs Temp Pulse Resp BP Pulse Ox 98.0 F 80 18 170/90 98 12/15/20 15:37 12/15/20 16:00 12/15/20 15:37 12/15/20 16:00 12/15/20 15:37 Period Temp Pulse Resp BP Sys/Jesus Pulse Ox Last 24 Hr 98.0 F-99.6 F 72-94 16-20 120-170/58-97 94-99 Intake and Output 12/15/20 12/15/20 12/15/20 05:59 13:59 21:59 Intake Total 300 Balance 300 Weight 266 lb 3.2 oz Patient Weight 12/16/20 05:59 Weight 266 lb 3.2 oz Intake & Output: Intake & Output 12/15/20 12/15/20 12/15/20 05:59 13:59 21:59 Intake Total 300 Balance 300 Weight 266 lb 3.2 oz Intake: Oral 300 General appearance: cooperative, no acute distress and obese Exam: No fever. Vital signs are stable. Tolerated HBOT uneventfully. L/E: No improvement in wound bed, edges and granulations. Further skin edges necrosis . Patient has PAD and compromised vascular inflow. He needs intervention to improve his vascular inflow to wound bed. Discussed options with Dr. SIMMONS. ??? vascular surgeon for bypass. Dr. SIMMONS knows this patient and has helped Robert with revascularization and stents. Dr. SIMMONS will expedite patient's transfer to [facility] in [place], [place] to expedite this. A/P Narrative A/P Narrative: Assessment: Open Surgical wounds RIGHT lower leg and dry gangrenous lateral toes foot. NOT responding to HBOT, MIST treatments and local wound care. COMPROMISED / Poor vascular inflow. PAD. ESRD on HD IDDM HTN Plan: Transfer patient to [facility], [place] for continuation of care / treatment. Time Spent With Patient Time: Total time spent is greater than 50% in coordination of care (as documented) at patient's floor/unit and/or counseling patient: Total time spent with greater than 50% in coordination of care (as documented) at patient's floor/unit and/or counseling patient:: Greater than 35 minutes
[2020-12-16] MEDS ORDERED: [UNRECOGNIZED DRUG - OTHER] IV SCH (09:00)
== END 2020-12-15 17:00 | disposition short-term general hospital (02) | DRG 264 ==
LOC: ED 13:45 → MEDSUR 16:32
PROVIDERS: ADMIT Internal Medicine; ATTEND Internal Medicine